=== PATIENT | male | born 1945 | race Caucasian/White ===

== ENCOUNTER 2022-05-22 12:47 | Emergency (ER) | payer BC, SELFPAY ==
[2022-05-22] VITALS (11 sets, daily range): BP systolic 128–159; BP diastolic 78–88; PULSE 54–62; RESP 10–17; TEMP 36.5; O2SAT 98–100
--- NOTE | ~2022-05-22 | XR_ITS ---
EXAMINATION: XR chest 2V DATE: 05/22/2022 13:17 INDICATION: Back and chest pain TECHNIQUE: Frontal and lateral views of the chest are obtained COMPARISON: 12/22/2009 FINDINGS: The lungs are free of acute opacities. No pleural effusion or pneumothorax. The cardiomedia stinal silhouette is normal. There is moderate thoracic spondylosis. IMPRESSION: 1. No acute cardiopulmonary abnormality. Reviewed, dictated and finalized at location A.
--- NOTE | 2022-05-22 12:52 | ECG_ITS ---
Measurements Intervals [place] Rate: 58 P: 57 MI: 160 QRS: 37 QRSD: 90 T: 57 QT: 398 QTc: 393 Interpretive Statements SINUS BRADYCARDIA NO PREVIOUS ECG AVAILABLE FOR COMPARISON Electronically Signed On 05-22-2022 20:00:05 CDT by Lety Akhtar M.D.
[2022-05-22 13:22] LABS: INR 1.1; Partial Thromboplastin Time 27.8 SECONDS (22.3-36.8); Prothrombin Time 13.4 Seconds (11.1-14.7)
[2022-05-22 13:23] LABS: Basophils Percent Auto 0.4 % (0.2-1.2); Eosinophils Absolute Auto 0.1 K/mm3 (0-0.3); Eosinophils Percent Auto 1.2 % (0-4.4); Hematocrit 38.7 % (42.0-52.0); Hemoglobin 13.2 g/dL (14.0-18.0); Immature Granulocyte Absolute 0.02 K/mm3 (0.00-0.031); Immature Granulocyte Percent A 0.3 % (0-0.5); Lymphocytes Absolute Auto 1.23 K/mm3 (0.9-3.2); Lymphocytes Percent Auto 16.8 % (18.3-44.2); Mean Corpuscular HGB Conc 34.1 g/dl (32-36); Mean Corpuscular Hemoglobin 31.2 pg (26-34); Mean Corpuscular Volume 91.5 fl (80-100); Mean Platelet Volume 9.4 fl (7.4-10.4); Monocytes Absolute Auto 0.6 K/mm3 (0.1-0.6); Monocytes Percent Auto 8.7 % (2.6-8.5); Neutrophils Absolute Auto 5.3 K/mm3 (1.3-6.7); Neutrophils Percent Auto 72.6 % (45.5-73.1); Platelet Count Result 217 k/mm3 (150-375); Red Blood Count 4.23 M/mm3 (4.6-6.20); Red Cell Distribution Width 12.5 % (11.5-14.5); White Blood Count 7.3 K/mm3 (4.5-10.0)
[2022-05-22 13:28] LABS: Alanine Aminotransferase 20 U/L (6-50); Albumin Level 4.9 g/dL (3.5-5.1); Alkaline Phosphatase 60 U/L (38-126); Anion Gap 4 mmol/L (8-16); Aspartate Amino Transferase 36 U/L (17-59); Bilirubin,Total 0.4 mg/dL (0.2-1.3); Blood Urea Nitrogen 22 mg/dL (9-20); Carbon Dioxide 26 mmol/L (22-30); Chloride 97 mmol/L (98-107); Estimated CRCL calculation 53 ml/min; Estimated Glomerular Filt Rate > 60; Glucose 106 mg/dL (65-110); Lipase 96 U/L (23-300); Potassium 4.9 mmol/L (3.4-5.0); Sodium 127 mmol/L (137-145)
[2022-05-22 13:39] LABS: Troponin I < 0.012 ng/mL (0.000-0.034)
--- NOTE | 2022-05-22 15:22 | ED.CHESTPAIN ---
HPI - Chest Pain General Chief Complaint: Chest Pain Stated Complaint: left back pain Time Seen by Provider: 05/22/22 15:04 History of Present Illness HPI narrative: Pt noticed some mid back discomfort last week which started to wrap around t the front yesterday and then today he had a brief sharp pain in his anterior chest when he was taking a deep breath. Pt says it lasted a couple of seconds and resolved. Pt has no pain now and denies SOB. Related Data Home Medications Medication Instructions Recorded Confirmed amlodipine 5 mg tablet mg 05/22/22 aspirin 81 mg 05/22/22 clopidogrel 75 mg tablet mg 05/22/22 simvastatin 40 mg tablet mg 05/22/22 valsartan 160 mg tablet mg 05/22/22 Allergies Allergy/AdvReac Type Severity Reaction Status Date / Time No Known Allergies Allergy Mild Verified 05/22/22 13:00 Review of Systems Review of Systems: All systems reviewed & are unremarkable except as noted in HPI and below Exam Const: General: healthy appearing Nutritional Appearance: well nourished Orientation/consciousness: patient oriented x3 Limitations: no limitations Chest: Chest palpation & inspection: tenderness Other: patient tender to palpation intercostal muscles in lower left anterior chest corresponding to intercostal muscles in area of tenderness in back Resp: Effort & Inspection: normal respiratory effort Auscultation: clear to auscultation bilaterally Cardio: Rate: regular rate Rhythm: regular rhythm Skin: General skin exam: normal color Rashes: no rashes Neuro: General: patient oriented x3, moves all extremities and no focal motor deficits Speech: normal speech Extrem: General: normal to inspection and no clubbing, cyanosis or edema Psych: Mental Status: mental status grossly normal Affect: normal affect Attitude: cooperative Course Vital Signs Vital signs: Vital Signs Temperature 97.7 F 05/22/22 12:58 Pulse Rate 62 05/22/22 12:58 Respiratory Rate 16 05/22/22 12:58 Blood Pressure 159/78 H 05/22/22 12:58 Pulse Oximetry 99 05/22/22 12:58 Oxygen Delivery Room Air 05/22/22 12:58 Temperature 97.7 F 05/22/22 12:58 Pulse Rate 58 L 05/22/22 17:05 Respiratory Rate 10 L 05/22/22 17:05 Blood Pressure 142/86 H 05/22/22 16:45 Pulse Oximetry 98 05/22/22 17:05 Oxygen Delivery Room Air 05/22/22 12:58 MDM - Chest Pain Lab Data Result diagrams: 05/22/22 12:56 05/22/22 12:56 Labs: Lab Results 05/22/22 05/22/22 05/22/22 Range/Units 12:56 12:56 12:56 WBC 7.3 (4.5-10.0) K/mm3 RBC 4.23 L (4.6-6.20) M/mm3 Hgb 13.2 L (14.0-18.0) g/dL Hct 38.7 L (42.0-52.0) % MCV 91.5 (80-100) fl MCH 31.2 (26-34) pg MCHC 34.1 (32-36) g/dl RDW 12.5 (11.5-14.5) % Plt Count 217 (150-375) k/mm3 MPV 9.4 (7.4-10.4) fl Immature Gran % (Auto) 0.3 (0-0.5) % Neut % (Auto) 72.6 (45.5-73.1) % Lymph % (Auto) 16.8 L (18.3-44.2) % [place] % (Auto) 8.7 H (2.6-8.5) % Eos % (Auto) 1.2 (0-4.4) % Baso % (Auto) 0.4 (0.2-1.2) % Lymph # (Auto) 1.23 (0.9-3.2) K/mm3 [place] # (Auto) 0.6 (0.1-0.6) K/mm3 Eos # (Auto) 0.1 (0-0.3) K/mm3 Baso # (Auto) 0.0 (0.0-0.1) K/mm3 Abs Immat Gran (auto) 0.02 (0.00-0.031) K/mm3 Absolute Neuts (auto) 5.3 (1.3-6.7) K/mm3 Absolute Nucleated RBC 0.0 (0.0-0.012) K/mm3 Nucleated RBC % 0.0 (0.0-0.2) % PT 13.4 (11.1-14.7) Seconds INR 1.1 APTT 27.8 (22.3-36.8) SECONDS Sodium 127 L (137-145) mmol/L Potassium 4.9 (3.4-5.0) mmol/L Chloride 97 L (98-107) mmol/L Carbon Dioxide 26 (22-30) mmol/L Anion Gap 4 L (8-16) mmol/L BUN 22 H (9-20) mg/dL Creatinine 1.00 (0.7-1.3) mg/dL Estim Creat Clear Calc 53 ml/min Estimated GFR > 60 (59 - ) Glucose 106 (65-110) mg/dL Calcium 9.0 (8.4-10.2) mg/dL Total Bilirubin 0.4 (0.2-1.3) mg/dL AST 36 (17-59) U/L AL
[2022-05-22 16:37] LABS: Troponin I < 0.012 ng/mL (0.000-0.034)
== END 2022-05-22 17:28 | disposition home or self-care (01) ==
PROVIDERS: Emergency Medicine; Emergency Provider Emergency Medicine
DX: R07.89 Other chest pain (principal); Z79.82 Long term (current) use of aspirin; R00.1 Bradycardia, unspecified
CPT/HCPCS: 36415; 71046; 80053; 83690; 84484; 85025; 85610; 85730; 93005; 99284

== ENCOUNTER 2022-06-10 07:04 | Emergency (ER) | payer BC, SELFPAY ==
--- NOTE | ~2022-06-10 | CT_ITS ---
EXAMINATION: CT lumbar spine wo con DATE: 06/10/2022 07:54 INDICATION: Low back pain. TECHNIQUE: Computed tomography (CT) of the lumbar spine was performed without intravenous contrast. A utomated exposure control and iterative reconstruction technique were employed. The dose-length produ ct was 369.91 mGy-cm. COMPARISON: None FINDINGS: There is 8 degrees dextrocurvature of lumbar spine. There are Schmorl's nodes from T11-T12 through L1-L2. There is moderately decreased disc height at L1-L2, mildly decreased disc height at L2 -L3, and moderately decreased disc height at L3-L4. The following disc levels are specifically discus sed: L1-L2: The disc is bulging. There is mild bilateral facet joint osteoarthritis. There is moderate rig ht and mild left neural foraminal stenosis. There is mild central canal stenosis. L2-L3: The disc is bulging. There is severe bilateral facet joint osteoarthritis. There is mild right and moderate left neural foraminal stenosis. There is mild central canal stenosis. L3-L4: The disc is bulging. There is severe right and mild left facet joint osteoarthritis. There is moderate bilateral neural foraminal stenosis. There is mild central canal stenosis. L4-L5: The disc is bulging. There is severe bilateral facet joint osteoarthritis. There is moderate b ilateral neural foraminal stenosis. There is mild central canal stenosis. L5-S1: The disc is bulging. There is severe bilateral facet joint osteoarthritis. There is mild bilat eral neural foraminal stenosis. There is mild central canal stenosis. IMPRESSION: 1. Moderate lumbar spondylosis. Reviewed, dictated and finalized at location A.
[2022-06-10 07:08] VITALS: BP 160/68; PULSE 66; RESP 18; TEMP 36.6; O2SAT 100
[2022-06-10 07:58] VITALS: BP 166/88; PULSE 62; RESP 12; O2SAT 100
[2022-06-10] MEDS: HYDROcodone/acetaminophen (*CRX) 5-325 MG TABLET 1 TAB PO (08:18)
[2022-06-10 08:22] LABS: Appearance Urine Clear (Clear); Bilirubin Urine Negative (Negative); Color Urine Yellow (Yellow); Glucose Urine UA Negative (Negative); Ketones Urine Negative (Negative); Leukocyte Esterase Ur Negative LEU/UL (Negative); Nitrate Urine Negative (Negative); Protein Urine Negative (Negative); Specific Grav Ur 1.015 (1.001-1.035); Urobilinogen Urine 0.2 mg/dL (<2.0)
[2022-06-10 08:50] LABS: Mucus Urine Rare /lpf; RBC Urine 0-2 /hpf (0-2); WBC Urine 0-3 /hpf
[2022-06-10 08:51] LABS: Add Urine Microscopic? YES; Blood Urine Trace-Intact (Negative)
--- NOTE | 2022-06-10 09:15 | ED.BACK ---
HPI - Back Pain/Injury General Chief Complaint: Extremity Problem,Nontraumatic Stated Complaint: low back pain, right leg pain Time Seen by Provider: 06/10/22 07:35 History of Present Illness HPI Narrative: Pt had some discomfort in his low back a few days ago but improved. Pt had been doing a lot of yard work and picking things up and twisting recently. Pt states he has developed sharp shooting intermittent pains that wrap around from back and goe down front of thight and leg over the last day or so. Pt denies weakness or numbness or problems with bladder or bowels. Related Data Home Medications Medication Instructions Recorded Confirmed amlodipine 5 mg tablet mg 05/22/22 aspirin 81 mg 05/22/22 clopidogrel 75 mg tablet mg 05/22/22 simvastatin 40 mg tablet mg 05/22/22 valsartan 160 mg tablet mg 05/22/22 Allergies Allergy/AdvReac Type Severity Reaction Status Date / Time No Known Allergies Allergy Mild Verified 06/10/22 07:42 Review of Systems Review of Systems: All systems reviewed & are unremarkable except as noted in HPI and below Exam Const: General: healthy appearing Nutritional Appearance: well nourished Orientation/consciousness: patient oriented x3 Limitations: no limitations Neck: Neck: normal visual inspection Resp: Effort & Inspection: normal respiratory effort Auscultation: clear to auscultation bilaterally Cardio: Rate: regular rate Rhythm: regular rhythm GI: GI Palp: Yes Soft to palpation Auscultation: normal bowel sounds : General: Yes bladder normal to palpation Back/Spine/Pelvis: Back: no CVA tenderness Skin: General skin exam: normal color Rashes: no rashes Wounds: no wounds Neuro: General: patient oriented x3, moves all extremities, no meningeal signs and no focal motor deficits Cranial nerves: Yes Nystagmus not present Speech: normal speech Gait exam (Neuro): Normal gait present Extrem: General: normal to inspection and no clubbing, cyanosis or edema Psych: Mental Status: mental status grossly normal Affect: normal affect Attitude: cooperative Course Vital Signs Vital signs: Vital Signs Temperature 97.8 F 06/10/22 07:08 Pulse Rate 66 06/10/22 07:08 Respiratory Rate 18 06/10/22 07:08 Blood Pressure 160/68 H 06/10/22 07:08 Pulse Oximetry 100 06/10/22 07:08 Oxygen Delivery Room Air 06/10/22 07:08 Temperature 97.8 F 06/10/22 07:08 Pulse Rate 62 06/10/22 07:58 Respiratory Rate 12 06/10/22 07:58 Blood Pressure 166/88 H 06/10/22 07:58 Pulse Oximetry 100 06/10/22 07:58 Oxygen Delivery Room Air 06/10/22 07:08 MDM - Back Pain/Injury MDM Narrative Medical decision making narrative: ct ls spine shows multilevel disease and bulging but no herniation Differential Diagnosis Differential diagnosis: Likely lumbar radiculopathy, sciatica, strain of lumbar region, pyelonephritis and discitis Lab Data Attestation: I reviewed the patient's lab results. Labs: Lab Results 06/10/22 Range/Units 08:15 Urine Color Yellow (Yellow) Urine Appearance Clear (Clear) Urine pH 6.0 (5.0-9.0) Ur Specific [place] 1.015 (1.001-1.035) Urine Protein Negative (Negative) mg/dL Urine Glucose (UA) Negative (Negative) mg/dL Urine Ketones Negative (Negative) mg/dL Ur Blood (Man) Trace-intact (Negative) Urine Nitrate Negative (Negative) Urine Bilirubin Negative (Negative) Urine Urobilinogen 0.2 (<2.0) mg/dL Leukocyte Esterase Rfl Negative (Negative) JOAQUIN/UL Urine RBC 0-2 (0-2) /hpf Urine WBC 0-3 /hpf Urine Mucus Rare /lpf Discharge Plan Discharge Clinical Impression: Lumbar back pain with radiculopathy affecting right lower extremity Patient Disposition: Home, Self-Care Condition: Stable Instructions: Antibiotic Form, Lumbar Radiculopathy (ED) Prescriptions: New prednisone 10 mg tablets,dose pack See Taper PO DAILY 12 Days Qty: 42 0RF Taper: Prednisone Taper fr
== END 2022-06-10 09:40 | disposition home or self-care (01) ==
PROVIDERS: Emergency Provider Emergency Medicine
DX: M54.16 Radiculopathy, lumbar region (principal); Z79.82 Long term (current) use of aspirin
CPT/HCPCS: 72131; 81001; 99284; A9270

== ENCOUNTER 2023-02-20 09:45 | Outpatient (RCR) | payer BC, SELFPAY | END 2023-02-20 10:36 | disposition home or self-care (01) | LOC: ANHCPREHAB 09:45 | DX: Z95.1 Presence of aortocoronary bypass graft (principal) | CPT/HCPCS: 93798 ==

== ENCOUNTER 2025-01-17 06:14 | Emergency (ER) | payer BC, SELFPAY ==
[2025-01-17] VITALS (23 sets, daily range): BP systolic 105–156; BP diastolic 54–104; PULSE 59–75; RESP 9–19; O2SAT 94–99
--- NOTE | ~2025-01-17 | CT_ITS ---
CT of the Abdomen and Pelvis: Indication: Abdominal pain Technique: 2.5 mm axial scans were obtained through the abdomen and pelvis following intravenous adm inistration of 100 cc of Omnipaque 350. Dose reduction technique was used on this scan by utilizing a utomated exposure control and iterative reconstruction technique. The dose-length product (DLP) was 2 96.78 mGy-cm. Findings: Scans through the lung bases demonstrate 7 mm pleural-based nodule the left lower lobe per ipherally (axial image 20). The liver, spleen, pancreas, gallbladder, adrenals and kidneys are within normal limits. There are at herosclerotic calcifications of the aorta. No lymphadenopathy. There is wall thickening and pericolonic inflammatory change at the proximal to mid descending colon, compatible with infectious/inflammatory colitis. No bowel obstruction. No abscess or free air. Images through the pelvis were performed. Urinary bladder unremarkable. Prostate gland is significant ly enlarged. No ascites. Impression: Findings compatible with infectious/inflammatory colitis at the proximal to mid descending colon. No abscess, free air, or obstruction. Neoplasm felt to be less likely given the overall appearance. Tay elate clinically. Consider colonoscopy as indicated. 7 mm pleural-based nodule left lower lobe. According to Fleischner criteria, for a low-risk patient, recommend follow-up CT scan in 6-12 months, then consider additional 18-[address] For a high-risk patient, follow-up CT scans at both 6-12 months and 18-24 months are recommended.. Reviewed, dictated and finalized at [facility]. Impression: Findings compatible with infectious/inflammatory colitis at the proximal to mid descending colon. No abscess, free air, or obstruction. Neoplasm felt to be le ss likely given the overall appearance. Correlate clinically. Consider colonosc opy as indicated. 7 mm pleural-based nodule left lower lobe. According to Fleischner criteria, fo r a low-risk patient, recommend follow-up CT scan in 6-12 months, then consider additional 18-[address] For a high-risk patient, follow-up CT scans at both 6-12 months and 18-24 months are recommended..
--- NOTE | ~2025-01-17 | XR_ITS ---
XR chest 2V Ordering provider: Kasi Cramer MD History: 79 years Male with . MID STERNAL CP . Comparison: May 22, 2022 FINDINGS: MEDIASTINUM: The cardiac silhouette is not enlarged. Postoperative changes in the mediastinum. LUNGS: No infiltrates, effusions or pneumothorax. OTHER: No free air under the diaphragm. IMPRESSION: No acute cardiopulmonary pathology. Reviewed, dictated and finalized at location A.
--- OUTSIDE RECORDS SUMMARY | 2025-01-17 06:16 | XMS_ITS | Encounter Summary ---
Author Organization [facility] Address [address] [place] [address] Care Team Providers Care Irrigating Pump Operator Name Role Phone Mimi Fernandez MD Primary Care Provider [phone] Encounter Details Date Type Department Care Team (Late st Contact Info) Description 04/13/2001 Outpatient Historical [facility] Primary Care - [facility] [address] [place] [address] [address] [place] [address] Jaya Roper MD NO ADDRESS ON FILE Social History Tobacco Use Types Packs/Day Years Used Date Smoking Tobacco: Never Assessed Sex and Gender Information Value Date Recorded Sex Assigned at Not on file 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 Gender Identity Not on file Sexual Orientation Not on file documented as of this encounter Plan of Treatment Upcoming Encounters Date Type Department Care Team (Late st Contact Info) Description 03/30/2025 9:00 AM CDT Office Visit [facility] Heart and Vascular - [facility] [address] [facility] [address] [place] [address] Valdez Frey MD [address] [facility] [address] [place] [address] 08/30/2025 11:30 AM MINILAB OPERATOR Office Visit [facility] Internal Medicine - [place] [address] [facility] [address] [place] [address] [place] [address] [facility] [address] [place] [address] documented as of this encounter Visit Diagnoses Not on filedocumented in this encounter Care Teams Irrigating Pump Operator Relationship Specialty [place] [address] [facility] [address] Gilberto Ayala [address] [address] PCP - General Internal Medicine 08/25/24 documented as of this encounter
--- OUTSIDE RECORDS SUMMARY | 2025-01-17 06:16 | XMS_ITS | Encounter Summary ---
Author Organization [facility] Address [address] [place] [address] Care Team Providers Care Toy Mechanic Name Role Phone Mimi Fernandez MD Primary Care Provider [phone] Encounter Details Date Type Department Care Team (Late st Contact Info) Description 06/05/2005 Outpatient Historical [facility] Support [facility] ([facility]) [address] 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 Gender Identity Not on file Sexual Orientation Not on file documented as of this encounter Plan of Treatment Upcoming Encounters Date Type Department Care Team (Late Contact Info) Description 03/30/2025 9:00 AM CDT Office Visit [facility] Heart and Vascular - [facility] [address] [facility] [address] [place] [address] Valdez Frey MD [address] [facility] [address] [place] [address] 08/30/2025 11:30 AM RAT CULTURIST Office Visit [facility] Internal Medicine - [place] [address] [facility] [address] [place] [address] [place] [address] Gilberto Ayala [facility] [address] [place] [address] documented as of this encounter Visit Diagnoses Not on filedocumented in this encounter Care Teams Toy Mechanic Relationship Specialty [place] [address] Gilberto Ayala [facility] [address] [place] [address] PCP - General Internal Medicine 08/25/24 documented as of this encounter
--- OUTSIDE RECORDS SUMMARY | 2025-01-17 06:16 | XMS_ITS | Encounter Summary ---
Author Organization [facility] Address [address] [place] [address] Care Team Providers Care Package Worker Name Role Phone Mimi Fernandez MD Primary Care Provider [phone] Encounter Details Date Type Department Care Team (Late st Contact Info) Description 02/10/2001 Outpatient Historical [facility] Primary Care - [facility] [address] [place] [address] [address] [place] [address] Jaya Roper MD NO ADDRESS ON FILE Social History Tobacco Use Types Packs/Day Years Used Date Smoking Tobacco: Never Assessed Sex and Gender Information Value Date Recorded Sex Assigned at Not on file 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 AIR 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 Gender Identity Not on file Sexual Orientation Not on file documented as of this encounter Plan of Treatment Upcoming Encounters Date Type Department Care Team (Late st Contact Info) Description 03/30/2025 9:00 AM CDT Office Visit [facility] Heart and Vascular - [facility] [address] [facility] [address] [place] [address] Valdez Frey MD [address] [facility] [address] [place] [address] 08/30/2025 11:30 AM AIR TOOL OPERATOR Office Visit [facility] Internal Medicine - [place] [address] [facility] [address] [place] [address] [place] [address] [facility] [address] [place] [address] documented as of this encounter Visit Diagnoses Not on filedocumented in this encounter Care Teams Package Worker Relationship Specialty [place] [address] [facility] [address] Gilberto Ayala [address] [address] PCP - General Internal Medicine 08/25/24 documented as of this encounter
--- OUTSIDE RECORDS SUMMARY | 2025-01-17 06:16 | XMS_ITS | Encounter Summary ---
Author Organization [facility] Address [address] [place] [address] Care Team Providers Care Typesetters Printer Name Role Phone Mimi Fernandez MD Primary Care Provider [phone] Encounter Details Date Type Department Care Team (Latest Contact Info) Description 06/23/2006 Outpatient Historical [facility] Primary Care - [facility] [address] [place] [address] [address] [place] [address] Jaya Roper MD NO ADDRESS ON FILE Other and Unspecified Hyperlipidemia (Primary Dx) Social History Tobacco Use Types Packs/Day Years Used Date Smoking Tobacco: Never Assessed Sex and Gender Information Value Date Recorded Sex Assigned at Not on file 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 VOICE WRITING REPORTER Gender Identity Not on file Sexual Orientation Not on file documented as of this encounter Plan of Treatment Upcoming Encounters Date Type Department Care Team (Late st Contact Info) Description 03/30/2025 9:00 AM CDT Office Visit [facility] Heart and Vascular - [facility] [address] [facility] [address] [place] [address] Valdez Frey MD [address] [facility] [address] [place] [address] 08/30/2025 11:30 AM VOICE WRITING REPORTER Office Visit [facility] Internal Medicine - [place] [address] [facility] [address] [place] [address] [place] [address] [facility] Gilberto [facility] [address] [place] [address] documented as of this encounter Procedures Procedure Name Priority Date/Time Associated Diagnosis Comments TSH REFLEXIVE Routine 06/23/2006 3:26 PM CDT CBC WITH DIFFERENTIAL Routine 06/23/2006 3:26 PM CDT CBC WITH DIFFERENTIAL Routine 06/23/2006 3:26 PM CDT PSA Routine 06/23/2006 3:26 PM CDT LIPID PANEL Routine 06/23/2006 3:26 PM CDT documented in this encounter Results * CBC WITH DIFFERENTIAL (06/23/2006 3:26 PM CDT) NEUTROPHILS 66 45 - 70 % INTERFAC E SYSTEM LYMPHOCYTES 25 16 - 45 % INTERFAC E SYSTEM MONOCYTES 7 3 - 13 % INTERFACE SYSTEM EOSINOPHILS 1 0 - 7 % INTERFAC E SYSTEM BASOPHILS 0 0 - 2 % INTERFACE SYSTEM NEUTROPHIL ABSOLUTE 3.69 1.90 - 7.00 K/uL INTERFACE SYSTEM LYMPHOCYTE ABSOLUTE 1.38 0.70 - 4.50 K/uL INTERFACE SYSTEM MONOCYTE ABSOLUTE 0.40 0.10 - 1.30 K/uL INTERFACE SYSTEM EOSINOPHIL ABSOLUTE 0.08 0.00 - 0.70 K/uL INTERFACE SYSTEM BASOPHILS ABSOLUTE 0.02 0.00 - 0.20 K/uL INTERFACE SYSTEM 06/23/2006 3:26 PM CDT us Jaya Roper MD HEMATOLOGY ORDERABLES Final R esult INTERFACE SYSTEM Refer to clinic/hospital department * CBC WITH DIFFERENTIAL (06/23/2006 3:26 PM CDT) WBC 5.6 4.0 - 9.8 K/uL INTERFACE SYSTEM RBC 4.95 4.50 - 5.40 M/uL INTERFACE SYSTEM HEMOGLOBIN 14.8 13.6 - 16.5 g/dL INTERFACE SYSTEM HEMATOCRIT 43.6 40.0 - 48.0 % INTERFACE SYSTEM MCV 88.1 82.0 - 99.0 fL INTERFACE SYSTEM MCH 29.9 27.2 - 32.6 pg INTERFACE SYSTEM MCHC 33.9 31.5 - 35.5 % INTERFACE SYSTEM RDW 12.9 11.5 - 14.5 % INTERFACE SYSTEM RDW-STDEV 41.4 37.1 - 48.7 fL INTERFACE SYSTEM PLATELETS 230 140 - 350 K/uL INTERFACE SYSTEM MPV 10.4 9.3 - 12.4 fL INTERFACE SYSTEM 06/23/2006 3:26 PM CDT us Jaya Roper MD HEMATOLOGY ORDERABLES Final R esult Performing Organization Address [facility] de Phone Number INTERFACE SYSTEM Refer to clinic/hospital department * TSH REFLEXIVE (06/23/2006 3:26 PM CDT) TSH 3.50 0.27 - 4.20 uU/mL INTERFACE SYSTEM 06/23/2006 3:26 PM CDT us Jaya Roper MD CHEMISTRY ORDERABLES Final Re sult Performing Organization Address [facility] Phone Number INTERFACE SYSTEM Refer to clinic/hospital department * (ABNORMAL) LIPID PANEL (06/23/2006 3:26 PM CDT) CHOLESTEROL 238(H) 100 - 199 mg/dL INTERFACE SYSTEM TRIGLYCERIDE 245(H) 10 - 149 mg/dL INTERFACE SYSTEM HDL 47 40 - 59 mg/dL INTERFACE SYSTEM CHOL/HDL RATIO 5.1(H) 2.0 - 5.0 INTER FACE SYSTEM LDL CALCULATED 142(H) <=99 mg/dL INTERFACE SYSTEM LIPID PANEL COMMENT See Below INTERFACE SYSTEM Comment: The adult ATP and pediatric NCEP classifications for lipids are available on the [facility] Intranet at: [email or web address] Select: Lab Policies and Procedures Select: Reference Ranges - Lipids 06/23/2006 3:26 PM CDT us Jaya Roper MD CHEMISTRY ORDERABLES Final Re sult Performing Organization Address [facility] Co de Phone Number INTERFACE SYSTEM Refer to clinic/hospital department * PSA (06/23/2006 3:26 PM CDT) PSA 1.1 0.0 - 4.0 ng/mL INTERFACE SYSTEM Comment:Performed on [employer] E170 System 06/23/2006 3:26 PM CDT us Jaya Roper MD CHEMISTRY ORDERABLES Final Re sult INTERFACE SYSTEM Refer to clinic/hospital department documented in this encounter Visit Diagnoses Diagnosis Other and unspecified hyperlipidemia- Primary documented in this encounter Care Teams Typesetters Printer Relationship Specialty [place] [address] [facility] [address] [place] [address] [address] PCP - General Internal Medicine 08/25/24 documented as of this encounter
--- OUTSIDE RECORDS SUMMARY | 2025-01-17 06:16 | XMS_ITS | Encounter Summary ---
Author Organization [facility] Address 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 SCIENCE PROFESSOR Gender Identity Not on file Sexual Orientation Not on file documented as of this encounter Plan of Treatment Upcoming Encounters Date Type Department Care Team (Late st Contact Info) Description 03/30/2025 9:00 AM CDT Office Visit [facility] Heart and Vascular - [facility] [address] [facility] [address] [place] [address] Valdez Frey MD [address] [facility] [address] [place] [address] 08/30/2025 11:30 AM COMPUTER SCIENCE PROFESSOR Office Visit [facility] [place] Internal Medicine - [place] [address] [facility] [address] [place] [address] [place] [address] [facility] [address] [place] [address] documented as of this encounter Visit Diagnoses Diagnosis Dizziness and giddiness- Primary documented in this encounter Care Teams National Dedicated Truck Driver Relationship Specialty [place] [address] [facility] [address] [place] [address] [address] PCP - General Internal Medicine 08/25/24 documented as of this encounter
--- OUTSIDE RECORDS SUMMARY | 2025-01-17 06:16 | XMS_ITS | Encounter Summary ---
Author Organization [facility] Address 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 Gender Identity Not on file Sexual Orientation Not on file documented as of this encounter Plan of Treatment Upcoming Encounters Date Type Department Care Team (Late st Contact Info) Description 03/30/2025 9:00 AM CDT Office Visit [facility] Heart and Vascular - [facility] [address] [place] [address] [address] [place] [address] Valdez Frey MD [address] [facility] [address] [place] [address] 08/30/2025 11:30 AM ORACLE EBS CONSULTANT Office Visit [facility] Internal Medicine - [place] [address] [facility] [address] [place] [address] [place] [address] [address] [facility] [address] [place] [address] documented as of this encounter Procedures Procedure Name Priority Date/Time Associated Diagnosis Comments NM MYOCARDIAL PERFUSION EF Routine 06/08/2008 10:55 AM CDT documented in this encounter Results * NM MYOCARDIAL PERFUSION EF (06/08/2008 10:55 AM CDT) 06/08/2008 10:5 5 AM CDT Narrative INTERFACE SYSTEM - 06/08/2008 1:46 PM CDT [facility] [address] [place] [place], [place] [address] Admit Date: 06/08/2008 YELENA LIU Sex: M Admit Prov: IGOR GUERRERO Date: 1945 Primary Care Prov: KATHY CHAN CMRN: [id number] Room: [facility] SSN: [id number] IMAGING SERVICES Ordering Prov: N/A Accession Number: [id number] Interpretation Date of Procedure: 06/08/2008 Procedure Type: 1 Day Exercise Stress Myocardial Perfusion Study Clinical Indication: 62-year-old gentleman with history of coronary disease who is referred for ischemic evaluation. Medications: Plavix, Zocor, metoprolol, niacin, aspirin, and fish oil Exercise Stress Procedure: The patient exercised for 10 minutes on a Jules protocol, achieving an estimated workload of 13 METS. The resting heart rate was 63 bpm, and increased to 153 bpm at peak exercise, which was 96 % of the predicted maximum heart rate. The resting blood pressure was 167 / 89 and 214 / 96 at peak exercise, demonstrating a normal response to exercise. Exercise was terminated due to achievement of target heart rate. ECG: Resting ECG demonstrated normal sinus rhythm, voltage of criteria for LVH with normal ST segments and T waves. With exercise there was up to [address] segment depression in the inferolateral leads which is suggestive of but nondiagnostic for ischemia. Nuclear Imaging Protocol: Myocardial perfusion imaging was performed at rest approximately 60 minutes following the intravenous injection of 8.8 mCi TC99m tetrofosmin. At peak exercise, the patient was injected intravenously with 31.6 mCi TC99m tetrofosmin and exercise was continued for 2 minutes. Gated post-stress tomographic imaging was performed approximately 30 minutes later in same manner. SPECT reconstruction was performed in the short, vertical long and horizontal long axis views in both rest and stress image sets. Findings: There is normal perfusion to all myocardial segments during both stress and rest imaging. There is no ischemia. Gated SPECT examination reveals normal left ventricular cavity size. There is normal left ventricular wall motion. LVEF 72 %. Impression: 1. Normal myocardial perfusion study. No ischemia. 2. Normal gated SPECT examination. Normal left ventricular wall motion. LVEF 72 %. 3. Nondiagnostic stress EKG with nonspecific, upsloping ST segment depression with exercise. LVH also decreases the specificity of the exam. 4. Good exercise capacity. Systemic hypertension at rest with normal hemodynamic response. 5. The technical quality of the study is good. 6. No prior study available for comparison. Recommendations: Clinical correlation . Dictated by: IGOR HORVATH 06/08/2008 13:37 Electronically signed by: IGOR HORVATH 06/08/2008 13:45 Procedure Note Igor Horvath MD - 06/08/[address] [address] Admit Date: 06/08/2008 YELENA LIU Sex: M Admit Prov: IGOR GUERRERO Date: 1945 Primary Care Prov: KATHY CHAN CMRN: [id number] Room: [facility] SSN: [id number] IMAGING SERVICES Ordering Prov: N/A Interpretation Date of Procedure: 06/08/2008 Procedure Type: 1 Day Exercise Stress Myocardial Perfusion Study Clinical Indication: 62-year-old gentleman with history of coronarydisease who is referred for ischemic evaluation. Medications: Plavix, Zocor, metoprolol, niacin, aspirin, and fishoil Exercise Stress Procedure: The patient exercised for 10 minutes on a Jules protocol, achievingan estimated workload of 13 METS. The resting heart rate was 63 bpm,and increased to 153 bpm at peak exercise, which was 96 % of thepredicted maximum heart rate. The resting blood pressure was 167 / 89 and 214 /96 at peak exercise, demonstrating a normal response to exercise. Exercisewas terminated due to achievement of target heart rate. ECG: Resting ECG demonstrated normal sinus rhythm, voltage of criteria forLVH with normal ST segments and T waves. With exercise there was up to 1mm of upsloping ST segment depression in the inferolateral leads which is suggestive of but nondiagnostic for ischemia. Nuclear Imaging Protocol: Myocardial perfusion imaging was performed at rest approximately 60minutes following the intravenous injection of 8.8 mCi TC99m tetrofosmin. Atpeak exercise, the patient was injected intravenously with 31.6 [id number] tetrofosmin and exercise was continued for 2 minutes. Gatedpost-stress tomographic imaging was performed approximately 30 minutes later insame manner. SPECT reconstruction was performed in the short, verticallong and horizontal long axis views in both rest and stress image sets. Findings: There is normal perfusion to all myocardial segments during bothstress and rest imaging. There is no ischemia. Gated SPECT examination revealsnormal left ventricular cavity size. There is normal left ventricular wallmotion. LVEF 72 %. Impression: 1. Normal myocardial perfusion study. No ischemia. 2. Normal gated SPECT examination. Normal left ventricular wallmotion. LVEF 72 %. 3. Nondiagnostic stress EKG with nonspecific, upsloping ST segment depression with exercise. LVH also decreases the specificity of theexam. 4. Good exercise capacity. Systemic hypertension at rest withnormal hemodynamic response. 5. The technical quality of the study is good. 6. No prior study available for comparison. Recommendations: Clinical correlation . Dictated by: IGOR HORVATH 06/08/2008 13:37 Electronically signed by: IGOR HORVATH 06/08/2008 13:45 Igor Guerrero MD [facility] ORDER[facility] Final Result Performing Organization Address City/State/[facility] Co de Phone Number INTERFACE SYSTEM Refer to clinic/hospital department documented in this encounter Visit Diagnoses Diagnosis Coronary atherosclerosis of [place] coronary artery documented in this encounter Care Teams Night Time Nanny Relationship Specialty [place] [address] [address] [facility] [address] [address] PCP - General Internal Medicine 08/25/24 documented as of this encounter
--- OUTSIDE RECORDS SUMMARY | 2025-01-17 06:16 | XMS_ITS | Encounter Summary ---
Author Organization [facility] Address [address] [place] [address] Care Team Providers Care Business Services Assistant Name Role Phone Mimi Fernandez MD Primary Care Provider [phone] Encounter Details Date Type Department Care Team (Latest Contact Info) Description 11/25/2001 Outpatient Historical [facility] CARDI[facility]ULMON[facility] Jaya Roper MD NO ADDRESS ON FILE SKIN SENSATION DISTURB (Primary Dx) Social History Tobacco Use Types Packs/Day Years Used Date Smoking Tobacco: Never Assessed Sex and Gender Information Value Date Recorded Sex Assigned at Not on file 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 CLERICAL SUPPORT Gender Identity Not on file Sexual Orientation Not on file documented as of this encounter Plan of Treatment Upcoming Encounters Date Type Department Care Team (Late st Contact Info) Description 03/30/2025 9:00 AM CDT Office Visit [facility] Heart and Vascular - [facility] [address] [place] [address] [address] [place] [address] Valdez Frey MD [address] [facility] 2014 [place] [address] 08/30/2025 11:30 AM CLERICAL SUPPORT Office Visit [facility] Internal Medicine - [place] [address] [facility] [address] [place] [address] [place] [address] [facility] Gilberto [facility] [place] [address] documented as of this encounter Visit Diagnoses Diagnosis Disturbance of skin sensation- Primary documented in this encounter Care Teams Business Services Assistant Relationship Specialty [place] [address] [facility] [address] Macias [address] [address] PCP - General Internal Medicine 08/25/24 documented as of this encounter
--- OUTSIDE RECORDS SUMMARY | 2025-01-17 06:16 | XMS_ITS | Encounter Summary ---
Author Organization [facility] Address [address] [place] [address] Care Team Providers Care Biology Manager Name Role Phone Mimi Fernandez MD Primary Care Provider [phone] Encounter Details Date Type Department Care Team (Late st Contact Info) Description 05/06/2005 Outpatient Historical [facility] Primary Care - [facility] [address] [place] [address] [address] [place] [address] Jaya Roper MD NO ADDRESS ON FILE Social History Tobacco Use Types Packs/Day Years Used Date Smoking Tobacco: Never Assessed Sex and Gender Information Value Date Recorded Sex Assigned at Not on file 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 MANAGER Gender Identity Not on file Sexual Orientation Not on file documented as of this encounter Plan of Treatment Upcoming Encounters Date Type Department Care Team (Late st Contact Info) Description 03/30/2025 9:00 AM CDT Office Visit [facility] Heart and Vascular - [facility] [address] [facility] [address] [place] [address] Valdez Frey MD [address] [facility] [address] [place] [address] 08/30/2025 11:30 AM INFORMATION SYSTEMS MANAGER Office Visit [facility] Internal Medicine - [place] [address] [facility] [address] [place] [address] [place] [address] [address] [facility] [address] [place] [address] documented as of this encounter Visit Diagnoses Not on filedocumented in this encounter Care Teams Biology Manager Relationship Specialty [place] [address] [facility] [address] Gilberto Ayala [address] [address] PCP - General Internal Medicine 08/25/24 documented as of this encounter
--- OUTSIDE RECORDS SUMMARY | 2025-01-17 06:16 | XMS_ITS | Encounter Summary ---
Author Organization [facility] Address [address] [place] [address] Care Team Providers Care Churn Operator Name Role Phone Mimi Fernandez MD Primary Care Provider [phone] Encounter Details Date Type Department Care Team (Latest Contact Info) Description 09/26/2008 Outpatient Historical [facility], [address] Jaya Roper MD NO ADDRESS ON FILE Family History of Osteoporosis Social History Tobacco Use Types Packs/Day Years Used Date Smoking Tobacco: Never Alcohol Use Standard Drinks/Week Comments Yes 0 (1 standard drink = 0.6 oz pur e alcohol) Sex and Gender Information Value Date Recorded Sex Assigned at Not on file 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 [address] [place] [address] [place] [address] [facility] Gilberto [facility] [place] [address] documented as of this encounter Visit Diagnoses Diagnosis Family history of osteoporosis documented in this encounter Care Teams Churn Operator Relationship Specialty [place] [address] [facility] [address] Gilberto Ayala [address] [address] PCP - General Internal Medicine 08/25/24 documented as of this encounter
--- OUTSIDE RECORDS SUMMARY | 2025-01-17 06:16 | XMS_ITS | Encounter Summary ---
Author Organization [facility] Address 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 TOBACCO USE Patient does not currently use tobacco. MEDICATIONS: Patient is taking no medications at present. CHIEF COMPLAINT Seen for a preventive examination. HISTORY: HISTORY: He returns for physical examination. He also has some concerns that we discussed today. The cough he was seen for last spring has lingered. He feels a small amount of drainage in his throat with it. 272.4-HYPERLIPIDEMIA He has tolerated a relatively low fat diet. He is physically active, though has not shown any change in his weight. 786.2-COUGH The patient denies other pulmonary symptoms. The patient's chronic cough has improved.not as dry ROS: GENERAL: . occasional sweating of head CARDIAC: No chest pain, palpitations, orthopnea, dyspnea on exertion, or paroxysmal nocturnal dyspnea. RESPIRATORY: No dyspnea, cough, hemoptysis or wheezing. : . occasional positional urgency. No nocturia GI: No abdominal pain, nausea, vomiting, diarrhea, constipation, melena, or hematochezia. NEUROLOGIC: . momentary occipital pain several times a year SOCIAL HISTORY: TOBACCO USE: Has no significant smoking history. EXERCISES: The patient exercises. DIET: Follows no specific diet. PHYSICAL EXAMINATION: CONSTITUTIONAL: GENERAL APPEARANCE: Healthy appearing patient in no distress. NECK/THYROID: Trachea midline. No thyroid enlargement, tenderness, or mass. No supraclavicular or cervical adenopathy. RESPIRATORY: Clear to auscultation and percussion. Normal respiratory effort. CARDIOVASCULAR: CARDIAC: Regular rhythm. No murmurs, rubs, or gallops. ARTERIAL: No aortic bruits. GASTROINTESTINAL: ABDOMEN: Soft, non-tender, without masses. Bowel sounds active. LIVER/SPLEEN/KIDNEY: No hepatosplenomegaly, tenderness or nodularity. Kidneys not palpable. RECTAL: Rectal exam reveals no masses or hemorrhoids, sphincter tone is normal. GENITOURINARY: PROSTATE: Symmetrical and smooth with no nodularity or tenderness. MUSCULOSKELETAL EXAM: GAIT/STATION: Normal gait. DIGITS/NAILS: EXTREMITIES: BILATERAL LOWER EXTREMITIES: No misalignment or tenderness. Full range of motion. Normal stability,strength and tone. ASSESSMENT/PLAN: 272.4-HYPERLIPIDEMIA Recheck blood work today. LAB ORDERS: Order number: [id number] Test Ordered: LIPID PANEL 1078 Order number: [id number] Test Ordered: GLUCOSE LEVEL 1111 V70.0-ROUTINE GENERAL MEDICAL EXAMINATION Overall status is good. He has some minor maladies, none of which represent any significant issues. V76.44-SCREEN FOR CA OF PROSTATE LAB ORDERS: Order number: [id number] Test Ordered: PSA, TOTAL 1002 V17.81-FAMILY HISTORY OSTEOPOROSIS His father had osteoporosis, but he had been on steroids for some time. V17.2-FAMILY HISTORY NEUROLOGICAL DISEASES 705.9-DISORDERS OF SWEAT GLANDS He has some abnormal sweating, will check a thyroid function in light of his hyperlipidemia. LAB ORDERS: Order number: [id number] Test Ordered: TSH (REFLEX FREE T4/FREE T3) 1727 HEALTH MAINTENANCE: LAST PROSTATE EXAM: 06/27. LAST DATE PSA DONE: 06/27. DISCUSSED SMOKING: yes. LAST TD: na LAST TD: na SEXUAL ACTIVITY DISCUSSED: yes. SUBSTANCE ABUSE DISCUSSED: yes. INJURY PREVENTION DISCUSSED: yes. DIET AND EXERCISE DISCUSSED: yes. ADVANCED DIRECTIVES DISCUSSED: yes. LAST DATE COLONOSCOPY: 04?. LAST DATE FLEX SIG: none. LAST DATE FOBT: none. LAST BONE DENSITY DATE: none. DIABETIC EYE EXAM: nondiabetic. DIABETIC EYE EXAM PROVIDER: nondiabetic. DIABETIC FOOT EXAM: nondiabetic LAST FLU VACCINE:none LAST PNEUMOCOCCAL:none Electronically Signed by: Jaya Roper MD on Wednesday, July 04, 2007 documented in this encounter Plan of Treatment Upcoming Encounters Date Type Department Care Team (Late st Contact Info) Description 03/30/2025 9:00 AM CDT Office Visit [facility] Heart and Vascular - [facility] [address] [facility] 160 [place] [address] Valdez Frey MD [address] [facility] 2014 [place] [address] 08/30/2025 11:30 AM JAVA CORE DEVELOPER Office Visit [facility] Internal Medicine - [place] [address] [facility] [address] [place] [address] [place] [address] [facility] [address] Macias [facility] [address] [place] [address] documented as of this encounter Visit Diagnoses Not on filedocumented in this encounter Care Teams Executive Team Leader Relationship Specialty [place] [address] [facility] [address] Macias [address] [address] PCP - General Internal Medicine 08/25/24 documented as of this encounter
--- OUTSIDE RECORDS SUMMARY | 2025-01-17 06:16 | XMS_ITS | Encounter Summary ---
Author Organization [facility] Address [address] [place] [address] Care Team Providers Care Director Of Financial Planning Name Role Phone Mimi Fernandez MD Primary Care Provider [phone] Encounter Details Date Type Department Care Team (Late st Contact Info) Description 05/06/2005 Outpatient Historical [facility] Primary Care - [facility] [address] [place] [address] [address] [place] [address] Jaya Roper MD NO ADDRESS ON FILE Social History Tobacco Use Types Packs/Day Years Used Date Smoking Tobacco: Never Assessed Sex and Gender Information Value Date Recorded Sex Assigned at Not on file 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 Gender Identity Not on file Sexual Orientation Not on file documented as of this encounter Plan of Treatment Upcoming Encounters Date Type Department Care Team (Late st Contact Info) Description 03/30/2025 9:00 AM CDT Office Visit [facility] Heart and Vascular - [facility] [address] [facility] [address] [place] [address] Valdez Frey MD [address] [facility] [address] [place] [address] 08/30/2025 11:30 AM WASHER MACHINE Office Visit [facility] Internal Medicine - [place] [address] [facility] [address] [place] [address] [place] [address] [facility] [address] [place] [address] documented as of this encounter Visit Diagnoses Not on filedocumented in this encounter Care Teams Director Of Financial Planning Relationship Specialty [place] [address] [facility] [address] Gilberto Ayala [address] [address] PCP - General Internal Medicine 08/25/24 documented as of this encounter
--- OUTSIDE RECORDS SUMMARY | 2025-01-17 06:16 | XMS_ITS | Encounter Summary ---
Author Organization [facility] Address [address] [place] [address] Care Team Providers Care Kiln Door Repairer Name Role Phone Mimi Fernandez MD Primary Care Provider [phone] Encounter Details Date Type Department Care Team (Late st Contact Info) Description 06/30/2007 Outpatient Historical [facility] Primary Care - [facility] [address] [place] [address] [address] [place] [address] Jaya Roper MD NO ADDRESS ON FILE Social History Tobacco Use Types Packs/Day Years Used Date Smoking Tobacco: Never Assessed Sex and Gender Information Value Date Recorded Sex Assigned at Not on file 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 OPERATOR Gender Identity Not on file Sexual Orientation Not on file documented as of this encounter Plan of Treatment Upcoming Encounters Date Type Department Care Team (Late st Contact Info) Description 03/30/2025 9:00 AM CDT Office Visit [facility] Heart and Vascular - [facility] [address] [facility] [address] [place] [address] Valdez Frey MD [address] [facility] [address] [place] [address] 08/30/2025 11:30 AM FILLER OPERATOR Office Visit [facility] Internal Medicine - [place] [address] [facility] [address] [place] [address] [place] [address] [facility] [address] [place] [address] documented as of this encounter Visit Diagnoses Not on filedocumented in this encounter Care Teams Kiln Door Repairer Relationship Specialty [place] [address] [facility] [address] Gilberto Ayala [address] [address] PCP - General Internal Medicine 08/25/24 documented as of this encounter
--- OUTSIDE RECORDS SUMMARY | 2025-01-17 06:16 | XMS_ITS | Encounter Summary ---
Author Organization [facility] Address [address] [place] [address] Care Team Providers Care Container Coordinator Name Role Phone Mimi Fernandez MD Primary Care Provider [phone] Encounter Details Date Type Department Care Team (Late st Contact Info) Description 11/18/[address] [facility] - [facility] [address] [place] [address] [address] [place] [address] Jaya Roper MD NO ADDRESS ON FILE Social History Tobacco Use Types Packs/Day Years Used Date Smoking Tobacco: Never Assessed Sex and Gender Information Value Date Recorded Sex Assigned at Not on file 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 DRY ROLLER Gender Identity Not on file Sexual Orientation Not on file documented as of this encounter Plan of Treatment Upcoming Encounters Date Type Department Care Team (Late st Contact Info) Description 03/30/2025 9:00 AM CDT Office Visit [facility] Heart and Vascular - [facility] [address] [facility] [address] [place] [address] Valdez Frey MD [address] [facility] [address] [place] [address] 08/30/2025 11:30 AM DRY ROLLER Office Visit [facility] Internal Medicine - [place] [address] [facility] [address] [place] [address] [place] [address] [facility] [address] [place] [address] documented as of this encounter Visit Diagnoses Not on filedocumented in this encounter Care Teams Container Coordinator Relationship Specialty [place] [address] [facility] [address] Gilberto Ayala [address] [address] PCP - General Internal Medicine 08/25/24 documented as of this encounter
--- OUTSIDE RECORDS SUMMARY | 2025-01-17 06:16 | XMS_ITS | Encounter Summary ---
Author Organization [facility] Address [address] [place] [address] Care Team Providers Care Fancy Sewer Name Role Phone Mimi Fernandez MD Primary Care Provider [phone] Encounter Details Date Type Department Care Team (Late st Contact Info) Description 01/19/2007 Outpatient Historical [facility] Primary Care - [facility] [address] [place] [address] [address] [place] [address] Jaya Roper MD NO ADDRESS ON FILE Social History Tobacco Use Types Packs/Day Years Used Date Smoking Tobacco: Never Assessed Sex and Gender Information Value Date Recorded Sex Assigned at Not on file 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 APPOINTMENT SCHEDULER Gender Identity Not on file Sexual Orientation Not on file documented as of this encounter Plan of Treatment Upcoming Encounters Date Type Department Care Team (Late st Contact Info) Description 03/30/2025 9:00 AM CDT Office Visit [facility] Heart and Vascular - [facility] [address] [facility] [address] [place] [address] Valdez Frey MD [address] [facility] [address] [place] [address] 08/30/2025 11:30 AM APPOINTMENT SCHEDULER Office Visit [facility] Internal Medicine - [place] [address] [facility] [address] [place] [address] [place] [address] [facility] [address] [place] [address] documented as of this encounter Visit Diagnoses Not on filedocumented in this encounter Care Teams Fancy Sewer Relationship Specialty [place] [address] [facility] [address] Gilberto Ayala [address] [address] PCP - General Internal Medicine 08/25/24 documented as of this encounter
--- OUTSIDE RECORDS SUMMARY | 2025-01-17 06:16 | XMS_ITS | Encounter Summary ---
Author Organization [facility] Address 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 [address] [facility] 160 [place] [address] Valdez Frey MD [address] [facility] [address] [place] [address] 08/30/2025 11:30 AM MINIATURE TRAIN DRIVER Office Visit [facility] Internal Medicine - [place] [address] [facility] [address] [place] [address] [place] [address] [address] [facility] [address] [place] [address] documented as of this encounter Visit Diagnoses Diagnosis Cough- Primary documented in this encounter Care Teams C Software Developer Relationship Specialty [place] [address] [facility] [address] Macias [address] [address] PCP - General Internal Medicine 08/25/24 documented as of this encounter
--- OUTSIDE RECORDS SUMMARY | 2025-01-17 06:16 | XMS_ITS | Encounter Summary ---
Author Organization [facility] Address [address] [place] [address] Care Team Providers Care Is Project Manager Name Role Phone Mimi Fernandez MD Primary Care Provider [phone] Encounter Details Date Type Department Care Team (Late st Contact Info) Description 10/22/1999 Outpatient Historical [facility] [address] [place] [address] [address] [place] [address] Jaya Roper MD NO ADDRESS ON FILE Social History Tobacco Use Types Packs/Day Years Used Date Smoking Tobacco: Never Assessed Sex and Gender Information Value Date Recorded Sex Assigned at Not on file 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 BUSINESS BROKER Gender Identity Not on file Sexual Orientation Not on file documented as of this encounter Plan of Treatment Upcoming Encounters Date Type Department Care Team (Late st Contact Info) Description 03/30/2025 9:00 AM CDT Office Visit [facility] - [facility] [address] [facility] [address] [place] [address] Valdez Frey MD [address] [facility] [address] [place] [address] 08/30/2025 11:30 AM BUSINESS BROKER Office Visit [facility] Internal Medicine - [place] [address] [facility] [address] [place] [address] [place] [address] [facility] [address] [place] [address] documented as of this encounter Visit Diagnoses Not on filedocumented in this encounter Care Teams Is Project Manager Relationship Specialty [place] [address] [facility] [address] Gilberto Ayala [address] [address] PCP - General Internal Medicine 08/25/24 documented as of this encounter
--- OUTSIDE RECORDS SUMMARY | 2025-01-17 06:16 | XMS_ITS | Encounter Summary ---
Author Organization [facility] Address [address] [place] [address] Care Team Providers Care Fruit Canner Name Role Phone Mimi Fernandez MD Primary Care Provider [phone] Encounter Details Date Type Department Care Team (Late st Contact Info) Description 02/04/2008 Outpatient Historical [facility] Primary Care - [facility] [address] [place] [address] [address] [place] [address] Jaya Roper MD NO ADDRESS ON FILE Social History Tobacco Use Types Packs/Day Years Used Date Smoking Tobacco: Never Assessed Sex and Gender Information Value Date Recorded Sex Assigned at Not on file 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 PRINT LINE SUPERVISOR Gender Identity Not on file Sexual Orientation Not on file documented as of this encounter Plan of Treatment Upcoming Encounters Date Type Department Care Team (Late st Contact Info) Description 03/30/2025 9:00 AM CDT Office Visit [facility] Heart and Vascular - [facility] [address] [facility] [address] [place] [address] Valdez Frey MD [address] [facility] [address] [place] [address] 08/30/2025 11:30 AM PRINT LINE SUPERVISOR Office Visit [facility] Internal Medicine - [place] [address] [facility] [address] [place] [address] [place] [address] [facility] [address] [place] [address] documented as of this encounter Visit Diagnoses Not on filedocumented in this encounter Care Teams Fruit Canner Relationship Specialty [place] [address] [facility] [address] Gilberto Ayala [address] [address] PCP - General Internal Medicine 08/25/24 documented as of this encounter
--- OUTSIDE RECORDS SUMMARY | 2025-01-17 06:16 | XMS_ITS | Encounter Summary ---
Author Organization [facility] Address [address] [place] [address] Care Team Providers Care Nuisance Animal Damage Control Agent Name Role Phone Mimi Fernandez MD Primary Care Provider [phone] Encounter Details Date Type Department Care Team (Latest Contact Info) Description 03/23/2008 Outpatient Historical [facility] Primary Care - [facility] [address] [place] [address] [address] [place] [address] Jaya Roper MD NO ADDRESS ON FILE Cor Athrscl-Uns Vessel Social History Tobacco Use Types Packs/Day Years Used Date Smoking Tobacco: Never Assessed Sex and Gender Information Value Date Recorded Sex Assigned at Not on file 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 Gender Identity Not on file Sexual Orientation Not on file documented as of this encounter Plan of Treatment Upcoming Encounters Date Type Department Care Team (Late st Contact Info) Description 03/30/2025 9:00 AM CDT Office Visit [facility] Heart and Vascular - [facility] [address] [facility] [address] [place] [address] Valdez Frey MD [address] [facility] [address] [place] [address] 08/30/2025 11:30 AM PEANUT FARMER Office Visit [facility] Internal Medicine - [place] [address] [facility] [address] [place] [address] [place] [address] [facility] [address] [place] [address] documented as of this encounter Procedures Procedure Name Priority Date/Time Associated Diagnosis Comments HEPATIC FUNCTION PANEL Routine 03/23/2008 8:03 AM CDT LIPID PANEL Routine 03/23/2008 8:03 AM CDT documented in this encounter Results * (ABNORMAL) LIPID PANEL (03/23/2008 8:03 AM CDT) TRIGLYCERIDE 222(H) 10 - 149 mg/dL [facility] HDL 36(L) 40 - 59 mg/dL [facility] CHOL/HDL RATIO 3.6 2.0 - 5.0 [facility] CHOLESTEROL 130 100 - 199 mg/dL [facility] LDL CALCULATED 50 <=99 mg/dL [facility] LIPID PANEL COMMENT See Below [facility] Comment: The adult ATP and pediatric NCEP classifications for lipids are available on the [facility] Intranet at: [email or web address] [facility]: Lab Policies and Procedures,Current [facility]: Lipid Panel Interpretation Blood specimen (specimen) 03/23/2008 8:03 AM CDT 03/23/2008 10:31 AM CDT Jaya Roper MD CHEMISTRY ORDERABLES Edited [facility] CLIA# [id number] [address] [place] [address] * HEPATIC FUNCTION PANEL (03/23/2008 8:03 AM CDT) BILIRUBIN TOTAL 0.4 0.2 - 1.0 mg/dL [facility] ALKALINE PHOSPHATASE 92 40 - 129 U/L [facility] BILIRUBIN DIRECT 0.1 0.0 - 0.3 mg/dL [facility] TOTAL PROTEIN 7.4 6.3 - 8.6 g/dL [facility] AST 24 12 - 38 U/L [facility] ALBUMIN 4.7 3.4 - 4.8 g/dL [facility] ALT 19 0 - 41 U/L [facility] Blood specimen (specimen) 03/23/2008 8:03 AM CDT 03/23/2008 10:31 AM CDT us Jaya Roper MD CHEMISTRY ORDERABLES Final Re sult [facility] CLIA# [id number] [address] [place] [address] documented in this encounter Visit Diagnoses Diagnosis Coronary atherosclerosis of unspecified type of vessel, benton or graft documented in this encounter Care Teams Nuisance Animal Damage Control Agent Relationship Specialty [place] [address] Gilberto Ayala [facility] [address] [place] [address] PCP - General Internal Medicine 08/25/24 documented as of this encounter
--- OUTSIDE RECORDS SUMMARY | 2025-01-17 06:16 | XMS_ITS | Encounter Summary ---
Author Organization [facility] Address [address] [place] [address] Care Team Providers Care Managing Principal Name Role Phone Mimi Fernandez MD Primary Care Provider [phone] Encounter Details Date Type Department Care Team (Late st Contact Info) Description 06/23/2006 Outpatient Historical [facility] Primary Care - [facility] [address] [place] [address] [address] [place] [address] Jaya Roper MD NO ADDRESS ON FILE Social History Tobacco Use Types Packs/Day Years Used Date Smoking Tobacco: Never Assessed Sex and Gender Information Value Date Recorded Sex Assigned at Not on file 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 CLOTH BRUSHING AND SUEDING SUPERVISOR Gender Identity Not on file Sexual Orientation Not on file documented as of this encounter Plan of Treatment Upcoming Encounters Date Type Department Care Team (Late st Contact Info) Description 03/30/2025 9:00 AM CDT Office Visit [facility] Heart and Vascular - [facility] [address] [facility] [address] [place] [address] Valdez Frey MD [address] [facility] [address] [place] [address] 08/30/2025 11:30 AM CLOTH BRUSHING AND SUEDING SUPERVISOR Office Visit [facility] Internal Medicine - [place] [address] [facility] [address] [place] [address] [place] [address] [facility] [address] [place] [address] documented as of this encounter Visit Diagnoses Not on filedocumented in this encounter Care Teams Managing Principal Relationship Specialty [place] [address] [facility] [address] Gilberto Ayala [address] [address] PCP - General Internal Medicine 08/25/24 documented as of this encounter
--- OUTSIDE RECORDS SUMMARY | 2025-01-17 06:16 | XMS_ITS | Encounter Summary ---
Author Organization [facility] Address [address] [place] [address] Care Team Providers Care Physician Executive Name Role Phone Mimi Fernandez MD Primary Care Provider [phone] Encounter Details Date Type Department Care Team (Late st Contact Info) Description 01/12/2004 Outpatient Historical [facility] - [facility] [address] [place] [address] [address] [place] [address] Jaya Roper MD NO ADDRESS ON FILE Social History Tobacco Use Types Packs/Day Years Used Date Smoking Tobacco: Never Assessed Sex and Gender Information Value Date Recorded Sex Assigned at Not on file 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 CUSTOMER LOYALTY REPRESENTATIVE Gender Identity Not on file Sexual Orientation Not on file documented as of this encounter Plan of Treatment Upcoming Encounters Date Type Department Care Team (Late st Contact Info) Description 03/30/2025 9:00 AM CDT Office Visit [facility] Heart and Vascular - [facility] [address] [facility] [address] [place] [address] Valdez Frey MD [address] [facility] [address] [place] [address] 08/30/2025 11:30 AM CUSTOMER LOYALTY REPRESENTATIVE Office Visit [facility] Internal Medicine - [place] [address] [facility] [address] [place] [address] [place] [address] [facility] [address] [place] [address] documented as of this encounter Visit Diagnoses Not on filedocumented in this encounter Care Teams Physician Executive Relationship Specialty [place] [address] [facility] [address] Gilberto Ayala [address] [address] PCP - General Internal Medicine 08/25/24 documented as of this encounter
--- OUTSIDE RECORDS SUMMARY | 2025-01-17 06:16 | XMS_ITS | Encounter Summary ---
Author Organization [facility] Address [address] [place] [address] Care Team Providers Care Counselor Supervisor Name Role Phone Mimi Fernandez MD Primary Care Provider [phone] Encounter Details Date Type Department Care Team (Late st Contact Info) Description 06/23/2006 Orders Only [facility] Primary Care - [address] [address] Jaya Roper MD NO ADDRESS ON FILE Social History Tobacco Use Types Packs/Day Years Used Date Smoking Tobacco: Never Assessed Sex and Gender Information Value Date Recorded Sex Assigned at Not on file 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 DIRECTOR MANUFACTURING ENGINEERING Gender Identity Not on file Sexual Orientation Not on file documented as of this encounter Progress Notes * Jaya Roper MD - 07/05/2008 7:53 PM CDT BLOOD PRESSURE: 130/80 Left Arm Sitting TEMPERATURE: 97.6??f Oral WEIGHT: 163lbs NURSE NAME: Gayle Meng M ALLERGIES: No known drug allergies. MEDICATIONS: Medications may have changed. Dr devi review medications. CHIEF COMPLAINT Seen for a preventive examination. 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 does not know why. No evident change in diet or activity. ENT: No hearing loss, epistaxis, hoarseness or dysphagia. No sinus congestion.. ENDOCRINE: No heat or cold intolerance, no excessive thirst.. CARDIAC: No chest pain, palpitations, orthopnea, dyspnea on exertion, or paroxysmal nocturnal dyspnea.. no further palpitations. RESPIRATORY: No dyspnea, cough, hemoptysis or wheezing.. SKIN/BREAST/CHEST: . spots on head--wondered about removal : No dysuria or hematuria.. good response to viagra GI: No abdominal pain, nausea, vomiting, diarrhea, constipation, melena, or hematochezia.. mild increased gas since beginning fruit daily.. 2 days of inguinal soreness weeksago. MUSCULOSKELETAL: . arches and feet hurt on arising, but then resolve fully after a couple of minutes. NO problems the rest of the day. PHYSICAL EXAMINATION: CONSTITUTIONAL: GENERAL APPEARANCE: Healthy appearing patient in no distress. NECK/THYROID: Trachea midline. No thyroid enlargement, tenderness, or mass. No supraclavicular or cervical adenopathy. RESPIRATORY: Clear to auscultation and percussion. Normal respiratory effort. CARDIOVASCULAR: CARDIAC: Regular rhythm. No murmurs, rubs, or gallops. ARTERIAL: Aortic pulses of normal amplitude with no bruits. EDEMA/VARICOSITIES OF EXTREMITIES: No edema or varicosities. GASTROINTESTINAL: ABDOMEN: Soft, non-tender, without masses. Bowel sounds active. LIVER/SPLEEN/KIDNEY: No hepatosplenomegaly, tenderness or nodularity. Kidneys not palpable. HERNIA: A SMALL, REDUCIBLE, NON-TENDER RIGHT INGUINAL HERNIA IS PRESENT. GENITOURINARY: SCROTUM/CONTENTS: Normal in appearance with no hydrocele, spermatocele, tenderness of cord, or testicular mass. PROSTATE: Symmetrical and smooth with no nodularity or tenderness. MUSCULOSKELETAL EXAM: EXTREMITIES: BILATERAL LOWER EXTREMITIES: No misalignment or tenderness. Full range of motion. Normal stability,strength and tone. SKIN: RASH/LESION #1 LOCATION: Left temporal area of the head. ASSESSMENT Seborrheic keratosis 702.10. TREATMENT Cryotherapy was performed. RASH/LESION #2 LOCATION: Lower extremity. ASSESSMENT Onychomycosis 110.1. NEUROLOGIC: CRANIAL NERVES: administrative resident II-XII grossly intact. DEEP TENDON REFLEXES: Deep tendon reflexes 2+/4 and symmetrical. 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 272.4-HYPERLIPIDEMIA very mild changes do not require intervention now. LAB ORDERS: Order number: [id number] Test Ordered: TSH (REFLEX FREE T4/FREE T3) 1727 Order number: [id number] Test Ordered: LIPID PANEL 1078 783.21-ABNORMAL LOSS OF WEIGHT probably just a variation,but it is not clearly explained, so will check some lab. LAB ORDERS: Order number: [id number] Test Ordered: CBC W/ DIFFERENTIAL 3150 702.19-SEBORRHEIC KERATOSIS area treated with liquid nitrogen on left taoism V76.44-SCREEN FOR CA OF PROSTATE LAB ORDERS: Order number: [id number] Test Ordered: PSA, TOTAL 1002 550.91-INGUINAL HERNIA had only brief sx and it is small. will observe HEALTH MAINTENANCE: LAST PROSTATE EXAM: yes-2004. LAST DATE PSA DONE: yes-2004. DISCUSSED SMOKING: yes-neg. LAST TD: yes-unknown SEXUAL ACTIVITY DISCUSSED: yes-. SUBSTANCE ABUSE DISCUSSED: yes-neg. INJURY PREVENTION DISCUSSED: yes-pos. DIET AND EXERCISE DISCUSSED: yes-pos. ADVANCED DIRECTIVES DISCUSSED: yes-neg. LAST DATE COLONOSCOPY: 2003. ( sejal/jazmin antunez) LAST DATE COLONOSCOPY: yes-2004. LAST DATE FLEX SIG: yes-neg. LAST DATE FOBT: yes-2004. LAST BONE DENSITY DATE: yes-na. DIABETIC EYE EXAM: na. DIABETIC EYE EXAM PROVIDER: na. DIABETIC FOOT EXAM: na LAST FLU VACCINE:yes-neg LAST PNEUMOCOCCAL:yes-neg RETURN VISIT : Patient instructed to return in 1 year. call if weight drops further Electronically Signed by: Jaya Roper MD on Friday, June 23, 2006 documented in this encounter Plan of Treatment Upcoming Encounters Date Type Department Care Team (Late st Contact Info) Description 03/30/2025 9:00 AM CDT Office Visit [facility] Heart and Vascular - [facility] [address] [facility] [address] [place] [address] Valdez Frey MD [address] [facility] [address] [place] [address] 08/30/2025 11:30 AM DIRECTOR MANUFACTURING ENGINEERING Office Visit [facility] Internal Medicine - [place] [address] [facility] [address] [facility] [place] [address] [place] [address] [facility] [address] Gilberto Ayala [facility] [address] [place] [address] documented as of this encounter Visit Diagnoses Not on filedocumented in this encounter Care Teams Counselor Supervisor Relationship Specialty [place] [address] Gilberto Ayala [facility] [address] [place] [address] PCP - General Internal Medicine 08/25/24 documented as of this encounter
--- OUTSIDE RECORDS SUMMARY | 2025-01-17 06:16 | XMS_ITS | Encounter Summary ---
Author Organization [facility] Address 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 Gender Identity Not on file Sexual Orientation Not on file documented as of this encounter Plan of Treatment Upcoming Encounters Date Type Department Care Team (Late st Contact Info) Description 03/30/2025 9:00 AM CDT Office Visit [facility] Heart and Vascular - [facility] [address] [facility] [address] [place] [address] Valdez Frey MD [address] [facility] [address] [place] [address] 08/30/2025 11:30 AM AIR CONDITIONING INSTALLER Office Visit [facility] Internal Medicine - [place] [address] [facility] [address] [place] [address] [place] [address] [facility] [address] [place] [address] documented as of this encounter Visit Diagnoses Not on filedocumented in this encounter Care Teams Restaurant Crew Relationship Specialty [place] [address] [facility] [address] Gilberto Ayala [address] [address] PCP - General Internal Medicine 08/25/24 documented as of this encounter
--- OUTSIDE RECORDS SUMMARY | 2025-01-17 06:16 | XMS_ITS | Encounter Summary ---
Author Organization [facility] Address [address] [place] [address] Care Team Providers Care Technical Sales Support Manager Name Role Phone Mimi Fernandez MD Primary Care Provider [phone] Encounter Details Date Type Department Care Team (Late st Contact Info) Description 10/07/[address] 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 Heart and Vascular - [facility] [address] [facility] [address] [place] [address] Valdez Frey MD [address] [facility] [address] [place] [address] 08/30/2025 11:30 AM FINANCIAL PLANNER Office Visit [facility] Internal Medicine - [place] [address] [facility] [address] [place] [address] [place] [address] [facility] [address] [place] [address] documented as of this encounter Visit Diagnoses Not on filedocumented in this encounter Care Teams Technical Sales Support Manager Relationship Specialty [place] [address] [facility] [address] Gilberto Ayala [address] [address] PCP - General Internal Medicine 08/25/24 documented as of this encounter
--- OUTSIDE RECORDS SUMMARY | 2025-01-17 06:16 | XMS_ITS | Encounter Summary ---
Author Organization [facility] Address [address] [place] [address] Care Team Providers Care Consulting Software Engineer Name Role Phone Mimi Fernandez MD Primary Care Provider [phone] Encounter Details Date Type Department Care Team (Late st Contact Info) Description 01/21/2008 Orders Only [facility] Primary Care - [facility] [address] [place] [address] [address] [place] [address] Jaya Roper MD NO ADDRESS ON FILE Social History Tobacco Use Types Packs/Day Years Used Date Smoking Tobacco: Never Assessed Sex and Gender Information Value Date Recorded Sex Assigned at Not on file 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 WINDOWS APPLICATION ADMINISTRATOR Gender Identity Not on file Sexual Orientation Not on file documented as of this encounter Plan of Treatment Upcoming Encounters Date Type Department Care Team (Late st Contact Info) Description 03/30/2025 9:00 AM CDT Office Visit [facility] Heart and Vascular - [facility] [address] [facility] [address] [place] [address] Valdez Frey MD [address] [facility] [address] [place] [address] 08/30/2025 11:30 AM WINDOWS APPLICATION ADMINISTRATOR Office Visit [facility] Internal Medicine - [place] [address] [facility] [address] [place] [address] [place] [address] [facility] [address] [place] [address] documented as of this encounter Visit Diagnoses Not on filedocumented in this encounter Care Teams Consulting Software Engineer Relationship Specialty [place] [address] [facility] [address] Gilberto Ayala [address] [address] PCP - General Internal Medicine 08/25/24 documented as of this encounter
--- OUTSIDE RECORDS SUMMARY | 2025-01-17 06:16 | XMS_ITS | Encounter Summary ---
Author Organization [facility] Address [address] [place] [address] Care Team Providers Care Supervisor Gate Services Name Role Phone Mimi Fernandez MD Primary Care Provider [phone] Encounter Details Date Type Department Care Team (Late st Contact Info) Description 06/23/2006 Outpatient Historical [facility] Primary Care - [facility] [address] [place] [address] [address] [place] [address] Jaya Roper MD NO ADDRESS ON FILE Social History Tobacco Use Types Packs/Day Years Used Date Smoking Tobacco: Never Assessed Sex and Gender Information Value Date Recorded Sex Assigned at Not on file 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 TEST FACILITY ENGINEER Gender Identity Not on file Sexual Orientation Not on file documented as of this encounter Plan of Treatment Upcoming Encounters Date Type Department Care Team (Late st Contact Info) Description 03/30/2025 9:00 AM CDT Office Visit [facility] Heart and Vascular - [facility] [address] [facility] [address] [place] [address] Valdez Frey MD [address] [facility] [address] [place] [address] 08/30/2025 11:30 AM TEST FACILITY ENGINEER Office Visit [facility] Internal Medicine - [place] [address] [facility] [address] [place] [address] [place] [address] [facility] [address] [place] [address] documented as of this encounter Visit Diagnoses Not on filedocumented in this encounter Care Teams Supervisor Gate Services Relationship Specialty [place] [address] [facility] [address] Gilberto Ayala [address] [address] PCP - General Internal Medicine 08/25/24 documented as of this encounter
--- OUTSIDE RECORDS SUMMARY | 2025-01-17 06:16 | XMS_ITS | Encounter Summary ---
Author Organization [facility] Address 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 Gender Identity Not on file Sexual Orientation Not on file documented as of this encounter Plan of Treatment Upcoming Encounters Date Type Department Care Team (Late st Contact Info) Description 03/30/2025 9:00 AM CDT Office Visit [facility] Heart and Vascular - [facility] [address] [place] [address] [address] [place] [address] Valdez Frey MD [address] [facility] [address] [place] [address] 08/30/2025 11:30 AM LIFE CLAIMS EXAMINER Office Visit [facility] Internal Medicine - [place] [address] [facility] [address] [place] [address] [place] [address] [facility] [place] [facility] [address] [place] [address] documented as of this encounter Procedures Procedure Name Priority Date/Time Associated Diagnosis Comments CKMB W/REFLEX CK Timed Study 01/22/2008 11:0 5 PM CDT TROPONIN Timed Study 01/22/2008 11:05 PM CDT CL CORONARY ANGIOGRAM Routine 01/22/2008 7:01 PM CDT CKMB W/REFLEX CK Timed Study 01/22/2008 4:10 PM CDT TROPONIN Timed Study 01/22/2008 4:10 PM CDT POC ACTIVATED CLOTTING TIME Routine 01/22/2008 2:25 PM CDT PT AND APTT Stat 01/22/2008 8:43 AM CDT CBC WITH DIFFERENTIAL Stat 01/22/2008 8:43 AM CDT LIPID PANEL Stat 01/22/2008 8:43 AM CDT BASIC METABOLIC PANEL Stat 01/22/2008 8:43 AM CDT documented in this encounter Results * TROPONIN (01/22/2008 11:05 PM CDT) TROPONIN T 0.01 <=0.03 ng/mL [facility] TROPONIN T INTERP Negative [facility] Blood specimen (specimen) 01/22/2008 11:05 PM CDT 01/22/2008 11:13 PM CDT us Tom Guerrero MD CHEMISTRY ORDERABLES Edited [facility] [address] [address] [place], [place] [address] * CKMB W/REFLEX CK (01/22/2008 11:05 PM CDT) CKMB 2.9 <=6.7 ng/mL [facility] CKMB INTERP Negative [facility] Blood specimen (specimen) 01/22/2008 11:05 PM CDT 01/22/2008 11:13 PM CDT Tom Guerrero MD CHEMISTRY ORDERABLES Edited [facility] [address] [facility] [place] [address] * CL CORONARY ANGIOGRAM (01/22/2008 7:01 PM CDT) Narrative INTERFACE SYSTEM - 01/22/2008 7:01 PM CDT [facility] [address] [place] [address] [email or web address] Comprehensive Report Patient: Cameron Liu Study ID: [id number] Gender: M : 1945 Age: 62 years Race: 1 Room: Bed: Height: 67 in ( 170.2 cm ) Study Date: January 22, 2008 Patient status: Outpatient Weight: 166.1 lb ( 75.5 kg ) Access. #: [id number] POC: Attending MD: Ebenezer Performing MD: Ebenezer Referring Physician: Jaya Roper MD, Tom Guerrero MD Indications and History: INDICATIONS: Unstable angina, CCS class III, with onset more than 1 week prior to admission. The patient stable. Abnormal stress test. CLINICAL PRESENTATION: The patient reported moderate pressure-type sub-sternal pain, during exertion, of 3 months duration. HISTORY: The patient had family history of coronary artery disease, hypertension, and untreated hypercholesterolemia. PRIOR DIAGNOSTIC TEST RESULTS: Previous exercise stress echocardiogram performed on January 21, 2008 was positive. There was ischemia in the territory of the left anterior descending in the anteroapical and septal left ventricular wall. Procedure(s) Performed: DIAGNOSTIC PROCEDURES: Left heart catheterization. Left ventriculography. Selective coronary angiography. SUPPORT INTERVENTIONS: PTCA/Stent of the proximal LAD. Study Conclusions: SUMMARY - Global left ventricular function was normal. EF estimated by contrast ventriculography was 60 %. - There was severe 1 -vessel coronary artery disease ( 95 % LAD). Proximal LAD: There was a discrete 95 % stenosis in the mid third of the vessel segment : Proximal circumflex: There was a discrete 40 % stenosis at the ostium of the vessel segment : - A successful bare metal stent with balloon angioplasty was performed on the 95 % lesion in the proximal LAD. Following intervention there was an excellent angiographic appearance with a 0 % residual stenosis. RECOMMENDATIONS Successful percutaneous coronary intervention of the proximal LAD. The patient should continue with the present medications. The patient should take clopidogrel 75 PO QD for 4 months at which point it can be discontinued. The patient should take simvastatin 40 PO QD indefinitely. The patient will remain in the hospital overnight for observation and rest; I anticipate discharge tomorrow. A follow-up appointment is recommended in 4 weeks. The patient was instructed to contact the office should symptoms worsen at any point. The patient has been instructed to follow-up with you (the referring physician) in the near future. COMPLICATIONS: There were no complications. Description of Procedure: BACKGROUND INFORMATION: The procedures, together with their attendant risks and alternatives, and conscious sedation were explained to the patient and informed consent was obtained. Contrast ( Optiray, 175 ml ) was administered during the procedure. The patient was given 11.000 mL Angiomax Bolus(IVP) 5mg/ml. The patient was given 1.700 mg/kg/hr Angiomax Drip 250mg/50ml. The patient was given 100.000 mL (IV) IV Solutions. The patient was given 200.000 mcg NTG (IC). The patient was given 3.000 l/min OXYGEN. The patient was given 600.000 mg PLAVIX. The patient was given 4.000 mg VERSED (IVP). NARRATIVE: - Right femoral artery access. The procedure was done with local anesthesia [lidocaine 2 %] and the modified Seldinger technique. - Left coronary artery angiography. A catheter was advanced to the ascending aorta and positioned in the vessel origin , under fluoroscopic guidance. Digital angiography was performed in multiple projections using hand-injection of contrast. - Right coronary artery angiography. A catheter was advanced to the ascending aorta and positioned in the vessel origin , under fluoroscopic guidance. Digital angiography was performed in multiple projections using hand-injection of contrast. - Left heart catheterization. A catheter was advanced to the ascending aorta. The catheter was advanced across the aortic valve. Pressure was recorded in the aorta and left ventricle. Ventriculography was performed using power injection of contrast agent. 30 degree SY images were obtained. Post-ventriculography LV pressure was obtained. The catheter was gradually withdrawn into the aorta under continuous pressure monitoring and aortic pressure was recorded. - Proceeded with coronary intervention as noted below. - Arterial hemostasis was deferred and the sheaths were sutured in place. Hemodynamics: IMPRESSIONS: Hemodynamic assessment demonstrated normal hemodynamics. Cardiac structures: VENTRICULOGRAPHY: There were no left ventricular regional wall motion abnormalities. Global left ventricular function was normal. EF estimated by contrast ventriculography was 60 %. VALVES: Aortic valve: The valve was evaluated by left ventriculography. The aortic valve appeared to be structurally normal. Aortic valve leaflets exhibited normal thickness and normal excursion. There was no aortic stenosis. Mitral valve: The valve was evaluated by left ventriculography. The mitral valve appeared grossly normal. The leaflets exhibited normal thickness and normal excursion. The mitral valve exhibited no regurgitation. Coronary and graft angiography: The coronary circulation is right dominant. LEFT ANTERIOR DESCENDING AND BRANCHES: Proximal LAD: There was a discrete 95 % stenosis in the mid third of the vessel segment : Distal LAD: The vessel was small to medium. LEFT CIRCUMFLEX AND BRANCHES: Proximal circumflex: There was a discrete 40 % stenosis at the ostium of the vessel segment : RIGHT CORONARY AND BRANCHES: RCA: Angiography showed minor luminal irregularities. RPDA: The vessel was medium-sized. IMPRESSIONS: There was severe 1 -vessel coronary artery disease ( 95 % LAD). Coronary Interventions: FIRST LESION: First lesion Summary: A successful bare metal stent with balloon angioplasty was performed on the 95 % lesion in the proximal LAD. Following intervention there was an excellent angiographic appearance with a 0 % residual stenosis. The residual lesion was discrete. Before the intervention there was PAULINA 3 flow. Following the procedure, the intervention site exhibited PAULINA 3 flow. First lesion intervention detail: Setup: A 6F XBLAD3.5 guiding catheter was used to intubate the vessel. The lesion was crossed with a .014 x 190 cm BMW wire. Procedures: Balloon angioplasty was performed with a 2.5 x 15mm [place] 2 RX balloon. 1 inflation(s) were performed, with a maximum inflation pressure of 6 mariela. A 3.0 mm x 12 mm Vision stent was deployed and 1 inflation(s) were performed. with one inflation at a maximum inflation pressure of 16 mariela There were no site complications. Site complications/results included: no acute closure and no perforation. Condition1: --- Pressure mmHg Rate dPdt AO 141-S/ 73-D, 101-M 58 BPM LV 135-S/ 4-BD, 11-ED 59 BPM 2300 AOp 141-S/ 72-D, 101-M 59 BPM PBa 136-S/ 70-D, 98-M 63 BPM PBv 137-S/ 5-BD, 12-ED 63 BPM 2680 Prepared and Electronically Authenticated Tom Guerrero MD Confirmed January 22, 2008 18:10:04 Procedure Note Provider, Historical - 01/22/[address] [place] [address] [email or web address] Comprehensive Report Patient: Cameron Liu Study ID: [id number] Gender: M : 1945 Age: 62 years Race: 1 Room: Bed: Height: 67 in ( 170.2 cm ) Study Date: January 22, 2008 Patient status: Outpatient Weight: 166.1 lb ( 75.5 kg ) Access. #: [id number] POC: Attending MD: Ebenezer Call MD: Ebenezer Referring Physician: Jaya Roper MD, Tom Guerrero MD Indications and History: INDICATIONS: Unstable angina, CCS class III, with onset more than 1 week prior to admission. The patient stable. Abnormal stress test. CLINICAL PRESENTATION: The patient reported moderate pressure-type sub-sternal pain, during exertion, of 3 months duration. HISTORY: The patient had family history of coronary artery disease, hypertension, and untreated hypercholesterolemia. PRIOR DIAGNOSTIC TEST RESULTS: Previous exercise stress echocardiogram performed on January 21, 2008 was positive. There was ischemia in the territory of the left anterior descending in the anteroapical and septal left ventricular wall. Procedure(s) Performed: DIAGNOSTIC PROCEDURES: Left heart catheterization. Left ventriculography. Selective coronary angiography. SUPPORT INTERVENTIONS: PTCA/Stent of the proximal LAD. Study Conclusions: SUMMARY - Global left ventricular function was normal. EF estimated by contrast ventriculography was 60 %. - There was severe 1 -vessel coronary artery disease ( 95 % LAD).Proximal LAD: There was a discrete 95 % stenosis in the mid third of the vessel segment : Proximal circumflex: There was a discrete 40 % stenosis at the ostium of the vessel segment : - A successful bare metal stent with balloon angioplasty was performedon the 95 % lesion in the proximal LAD. Following intervention there was an excellent angiographic appearance with a 0 % residual stenosis. RECOMMENDATIONS Successful percutaneous coronary intervention of the proximal LAD. The patient should continue with the present medications. The patient should take clopidogrel 75 PO QD for 4 months at which point it can be discontinued. The patient should take simvastatin 40 PO QD indefinitely. The patient will remain in the hospital overnight for observation andre; I anticipate discharge tomorrow. A follow-up appointment is recommendedin 4 weeks. The patient was instructed to contact the office shouldsymptoms worsen at any point. The patient has been instructed to follow-up withyou (the referring physician) in the near future. COMPLICATIONS: There were no complications. Description of Procedure: BACKGROUND INFORMATION: The procedures, together with their attendant risks and alternatives,and conscious sedation were explained to the patient and informed consentwas obtained. Contrast ( Optiray, 175 ml ) was administered during the procedure. The patient was given 11.000 mL Angiomax Bolus(IVP) 5mg/ml.The patient was given 1.700 mg/kg/hr Angiomax Drip 250mg/50ml. The patientwas given 100.000 mL (IV) IV Solutions. The patient was given 200.000 mcgNTG (IC). The patient was given 3.000 l/min OXYGEN. The patient was given 600.000 mg PLAVIX. The patient was given 4.000 mg VERSED (IVP). NARRATIVE: - Right femoral artery access. The procedure was done with local anesthesia [lidocaine 2 %] and the modified Seldinger technique. - Left coronary artery angiography. A catheter was advanced to the ascending aorta and positioned in the vessel origin , under fluoroscopic guidance. Digital angiography was performed in multiple projections using hand-injection of contrast. - Right coronary artery angiography. A catheter was advanced to the ascending aorta and positioned in the vessel origin , under fluoroscopic guidance. Digital angiography was performed in multiple projections using hand-injection of contrast. - Left heart catheterization. A catheter was advanced to the ascending aorta. The catheter was advanced across the aortic valve. Pressure was recorded in the aorta and left ventricle. Ventriculography was performed using power injection of contrast agent. 30 degree SY images were obtained. Post-ventriculography LV pressure was obtained. The catheter was gradually withdrawn into the aorta under continuous pressure monitoring and aortic pressure was recorded. - Proceeded with coronary intervention as noted below. - Arterial hemostasis was deferred and the sheaths were sutured inplace. Hemodynamics: IMPRESSIONS: Hemodynamic assessment demonstrated normal hemodynamics. Cardiac structures: VENTRICULOGRAPHY: There were no left ventricular regional wall motion abnormalities.Global left ventricular function was normal. EF estimated by contrast ventriculography was 60 %. VALVES: Aortic valve: The valve was evaluated by left ventriculography. Theaortic valve appeared to be structurally normal. Aortic valve leafletsexhibited normal thickness and normal excursion. There was no aortic stenosis. Mitral valve: The valve was evaluated by left ventriculography. Themitral valve appeared grossly normal. The leaflets exhibited normal thicknessand normal excursion. The mitral valve exhibited no regurgitation. Coronary and graft angiography: The coronary circulation is right dominant. LEFT ANTERIOR DESCENDING AND BRANCHES: Proximal LAD: There was a discrete 95 % stenosis in the mid third of the vessel segment : Distal LAD: The vessel was small to medium. LEFT CIRCUMFLEX AND BRANCHES: Proximal circumflex: There was a discrete 40 % stenosis at the ostium of the vessel segment : RIGHT CORONARY AND BRANCHES: RCA: Angiography showed minor luminal irregularities. RPDA: The vesselwas medium-sized. IMPRESSIONS: There was severe 1 -vessel coronary artery disease ( 95 % LAD). Coronary Interventions: FIRST LESION: First lesion Summary: A successful bare metal stent with balloon angioplasty was performed on the 95 % lesion in the proximal LAD.Following intervention there was an excellent angiographic appearance with a 0 % residual stenosis. The residual lesion was discrete. Before the intervention there was PAULINA 3 flow. Following the procedure, the intervention site exhibited PAULINA 3 flow. First lesion intervention detail: Setup: A 6F XBLAD3.5 guiding catheter was used to intubate the vessel.The lesion was crossed with a .014 x 190 cm BMW wire. Procedures: Balloon angioplasty was performed with a 2.5 x 15mm [place]2 RX balloon. 1 inflation(s) were performed, with a maximum inflation pressure of 6 mariela. A 3.0 mm x 12 mm Vision stent was deployed and 1 inflation(s) were performed. with one inflation at a maximum inflation pressure of 16 mariela There were no site complications. Site complications/results included:no acute closure and no perforation. Condition1: --- Pressure mmHg Rate dPdt AO 141-S/ 73-D, 101-M 58 BPM LV 135-S/ 4-BD, 11-ED 59 BPM 2300 AOp 141-S/ 72-D, 101-M 59 BPM PBa 136-S/ 70-D, 98-M 63 BPM PBv 137-S/ 5-BD, 12-ED 63 BPM 2680 Prepared and Electronically Authenticated Tom Guerrero MD Confirmed January 22, 2008 18:10:04 us Tom Guerrero MD FLUOROSCOPY ORDERABLES Final Res ult Performing Organization Address [facility] de Phone Number INTERFACE SYSTEM Refer to clinic/hospital department * TROPONIN (01/22/2008 4:10 PM CDT) TROPONIN T <0.01 <=0.03 ng/mL [facility] TROPONIN T INTERP Negative [facility] Blood specimen (specimen) 01/22/2008 4:10 PM CDT 01/22/2008 4:16 PM CDT Tom Guerrero MD CHEMISTRY ORDERABLES Edited Performing Organization Address [facility]/[employer] Phone Number [facility] [address] [place] [address] * CKMB W/REFLEX CK (01/22/2008 4:10 PM CDT) [facility] CKMB 2.2 <=6.7 ng/mL [facility] CKMB INTERP Negative [facility] Blood specimen (specimen) 01/22/2008 4:10 PM CDT 01/22/2008 4:16 PM CDT Result [facility] Tom Guerrero MD CHEMISTRY ORDERABLES Edited Performing Organization Address [facility] Co de Phone Number [facility] [address] [place] [address] * POC ACTIVATED CLOTTING TIME (01/22/2008 2:25 PM CDT) [facility] ACT POC 307 Seconds [facility] Comment: Note sheath pull range change effective 03/14/2006. ACT value for sheath pull at [facility] has been established to be < or = to 140. (See also Nursing Procedures for sheath pull in related nursing areas) Blood specimen (specimen) 01/22/2008 2:25 PM CDT 01/22/2008 2:25 PM CDT us Tom Guerrero MD POINT OF CARE TESTING Final Resu lt Performing Organization Address [facility] Co de Phone Number [facility] [address] [place] [address] * CBC WITH DIFFERENTIAL (01/22/2008 8:43 AM CDT) [facility] MCV 89.6 82.0 - 99.0 fL [facility] PLATELETS 229 140 - 350 K/uL [facility] HEMOGLOBIN 14.8 13.6 - 16.5 g/dL [facility] RDW 12.8 11.5 - 14.5 % [facility] WBC 5.1 4.0 - 9.8 K/uL [facility] MCH 30.1 27.2 - 32.6 pg [facility] MPV 10.1 9.3 - 12.4 fL [facility] HEMATOCRIT 44.0 40.0 - 48.0 % [facility] RDW-STDEV 41.3 37.1 - 48.7 fL [facility] RBC 4.91 4.50 - 5.40 M/uL [facility] MCHC 33.6 31.5 - 35.5 % [facility] EOSINOPHILS 2 0 - 7 % [facility] EOSINOPHIL ABSOLUTE 0.11 0.00 - 0.70 K/uL [facility] LYMPHOCYTES 27 16 - 45 % [facility] LYMPHOCYTE ABSOLUTE 1.40 0.70 - 4.50 K/uL [facility] BASOPHILS 1 0 - 2 % [facility] BASOPHILS ABSOLUTE 0.03 0.00 - 0.20 K/uL [facility] MONOCYTES 7 3 - 13 % [facility] MONOCYTE ABSOLUTE 0.35 0.10 - 1.30 K/uL [facility] NEUTROPHILS 63 45 - 70 % [facility] NEUTROPHIL ABSOLUTE 3.24 1.90 - 7.00 K/uL [facility] Blood specimen (specimen) 01/22/2008 8:43 AM CDT 01/22/2008 8:45 AM CDT Tom Guerrero MD HEMATOLOGY ORDERABLES Edited INTERFACE SYSTEM Refer to clinic/hospital department [facility] [address] [place] [address] * (ABNORMAL) LIPID PANEL (01/22/2008 8:43 AM CDT) Pathologist [facility] LDL CALCULATED 119(H) <=99 mg/dL [facility] TRIGLYCERIDE 231(H) 10 - 149 mg/dL [facility] CHOL/HDL RATIO 5.6(H) 2.0 - 5.0 [facility] HDL 36(L) 40 - 59 mg/dL [facility] CHOLESTEROL 201(H) 100 - 199 mg/dL [facility] LIPID PANEL COMMENT See Below [facility] Comment: The adult ATP and pediatric NCEP classifications for lipids are available on the [facility] Intranet at: [email or web address] Select: Lab Policies and Procedures,Current Select: Lipid Panel Interpretation Blood specimen (specimen) 01/22/2008 8:43 AM CDT 01/22/2008 8:45 AM CDT Narrative [facility] - 01/22/2008 9:37 AM CDT FASTING Tom Guerrero MD CHEMISTRY ORDERABLES Edited [facility] [address] [facility] [address] * (ABNORMAL) BASIC METABOLIC PANEL (01/22/2008 8:43 AM CDT) [facility] CHLORIDE 106 96 - 108 mmol/L [facility] GLUCOSE 102(H) 65 - 99 mg/dL [facility] SODIUM 140 135 - 145 mmol/L [facility] CALCIUM 8.9 8.4 - 10.2 mg/dL [facility] CO2 26 22 - 30 mmol/L [facility] CREATININE 0.90 0.67 - 1.17 mg/dL [facility] POTASSIUM 4.7 3.5 - 4.9 mmol/L [facility] Comment: Slight hemolysis present. Result may be falsely elevated. BUN 13 6 - 20 mg/dL [facility] GFR, >60 >=60 mL/min/1. 7 sq meter [facility] GFR >60 >=60 mL/min/1. 7 sq meter [facility] Comment: Estimated GFR rate interpretative information for both Americans and non- Americans is available on the [facility] Intranet at: [email or web address] Select: Lab Policies and Procedures Select: Reference Ranges - GFR Blood specimen (specimen) 01/22/2008 8:43 AM CDT 01/22/2008 8:45 AM CDT Tom Guerrero MD CHEMISTRY ORDERABLES Edited [facility] [address] [place] [address] * PT AND APTT (01/22/2008 8:43 AM CDT) PROTIME 13.1 12.7 - 15.1 Seconds [facility] INR 1.0 0.9 - 1.1 [facility] Comment: INR Therapeutic Range: Adult: 2.0 - 3.0 for pulmonary embolism or prophylaxis against venous thrombosis or systemic embolization. 2.0 - 3.0 for patients with tissue heart valves. 2.5 - 3.5 for patients with mechanical heart valves or post [place]. Pediatric (12 years and under): 1.5 - 3.0 Although the target range in children is not well established, INR values of 1.5 - 3.0 are recommended for most patients. Higher values have been used in children with prosthetic cardiac valves and hereditary clotting disorders. (<3 days) therapeutic ranges have not been established. PTT 28.1 24.4 - 36.4 Seconds [facility] Comment: PTT Therapeutic Range: Heparin Level PTT (seconds) <0.10 units/mL <53 0.10 - 0.30 units/mL 53 - 67 0.30 - 0.70 units/mL* 67 - 95* 0.70 - 1.00 units/mL 95 - 116 *corresponds to therapeutic range for unfractionated heparin Blood specimen (specimen) 01/22/2008 8:43 AM CDT 01/22/2008 8:45 AM CDT us Tom Guerrero MD HEMATOLOGY ORDERABLES Edited [facility] [address] [place] [address] documented in this encounter Visit Diagnoses Diagnosis Other chest pain documented in this encounter Care Teams Outreach Manager Relationship Specialty [place] [address] Gilberto Ayala [facility] [address] [place] [address] PCP - General Internal Medicine 08/25/24 documented as of this encounter
--- OUTSIDE RECORDS SUMMARY | 2025-01-17 06:16 | XMS_ITS | Encounter Summary ---
Author Organization [facility] Address [address] [place] [address] Care Team Providers Care Commercial Real Estate Lender Name Role Phone Mimi Fernandez MD Primary Care Provider [phone] Encounter Details Date Type Department Care Team (Late st Contact Info) Description 01/19/2007 Outpatient Historical [facility] Primary Care - [facility] [address] [place] [address] [address] [place] [address] Jaya Roper MD NO ADDRESS ON FILE Social History Tobacco Use Types Packs/Day Years Used Date Smoking Tobacco: Never Assessed Sex and Gender Information Value Date Recorded Sex Assigned at Not on file 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 Gender Identity Not on file Sexual Orientation Not on file documented as of this encounter Plan of Treatment Upcoming Encounters Date Type Department Care Team (Late st Contact Info) Description 03/30/2025 9:00 AM CDT Office Visit [facility] Heart and Vascular - [facility] [address] [facility] [address] [place] [address] Valdez Frey MD [address] [facility] [address] [place] [address] 08/30/2025 11:30 AM PALEONTOLOGY TEACHER Office Visit [facility] Internal Medicine - [place] [address] [facility] [address] [place] [address] [place] [address] [facility] [address] [place] [address] documented as of this encounter Visit Diagnoses Not on filedocumented in this encounter Care Teams Commercial Real Estate Lender Relationship Specialty [place] [address] [facility] [address] Gilberto Ayala [address] [address] PCP - General Internal Medicine 08/25/24 documented as of this encounter
--- OUTSIDE RECORDS SUMMARY | 2025-01-17 06:16 | XMS_ITS | Encounter Summary ---
Author Organization [facility] Address 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 Gender Identity Not on file Sexual Orientation Not on file documented as of this encounter Plan of Treatment Upcoming Encounters Date Type Department Care Team (Late st Contact Info) Description 03/30/2025 9:00 AM CDT Office Visit [facility] Heart and Vascular - [facility] [address] [place] [address] [address] [place] [address] Valdez Frey MD [address] [facility] [address] [place] [address] 08/30/2025 11:30 AM DELPHI DEVELOPER Office Visit [facility] Internal Medicine - [place] [address] [facility] [address] [place] [address] [place] [address] [facility] Gilberto Ayala [facility] [address] [place] [address] documented as of this encounter Visit Diagnoses Diagnosis Routine general medical examination at a health care facility- Primary documented in this encounter Care Teams Agile Coach Relationship Specialty [place] [address] [facility] [address] Gilberto Ayala [address] [address] PCP - General Internal Medicine 08/25/24 documented as of this encounter
--- OUTSIDE RECORDS SUMMARY | 2025-01-17 06:16 | XMS_ITS | Encounter Summary ---
Author Organization [facility] Address 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 Gender Identity Not on file Sexual Orientation Not on file documented as of this encounter Plan of Treatment Upcoming Encounters Date Type Department Care Team (Late st Contact Info) Description 03/30/2025 9:00 AM CDT Office Visit [facility] Heart and Vascular - [facility] [address] [place] [address] [address] [place] [address] Valdez Frey MD [address] [facility] [address] [place] [address] 08/30/2025 11:30 AM PRINT AND PATTERN DESIGNER Office Visit [facility] Internal Medicine - [place] [address] [facility] [address] [place] [address] [place] [address] [facility] Gilberto [facility] [address] [place] [address] documented as of this encounter Visit Diagnoses Diagnosis Chest pain, unspecified documented in this encounter Care Teams Pipe Inspector Relationship Specialty [place] [address] [facility] [address] Gilberto Ayala [facility] [address] [place] [address] PCP - General Internal Medicine 08/25/24 documented as of this encounter
--- OUTSIDE RECORDS SUMMARY | 2025-01-17 06:16 | XMS_ITS | Encounter Summary ---
Author Organization [facility] Address 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 Gender Identity Not on file Sexual Orientation Not on file documented as of this encounter Plan of Treatment Upcoming Encounters Date Type Department Care Team (Late st Contact Info) Description 03/30/2025 9:00 AM CDT Office Visit [facility] Heart and Vascular - [facility] [address] [place] [address] [address] [place] [address] Valdez Frey MD [address] [facility] [address] [place] [address] 08/30/2025 11:30 AM TEAM MANAGER Office Visit [facility] Internal Medicine - [place] [address] [facility] [address] [place] [address] [place] [address] [facility] [address] [place] [address] documented as of this encounter Visit Diagnoses Diagnosis Cervicalgia- Primary documented in this encounter Care Teams Middle Card Tender Relationship Specialty [place] [address] [facility] [address] [place] [address] [address] PCP - General Internal Medicine 08/25/24 documented as of this encounter
--- OUTSIDE RECORDS SUMMARY | 2025-01-17 06:16 | XMS_ITS | Encounter Summary ---
Author Organization [facility] Address [address] [place] [address] Care Team Providers Care Photoengraving Sketch Maker Name Role Phone Mimi Fernandez MD Primary Care Provider [phone] Encounter Details Date Type Department Care Team (Late st Contact Info) Description 07/30/2001 Outpatient Historical [facility] Primary Care - [facility] [address] [place] [address] [address] [place] [address] Jaya Roper MD NO ADDRESS ON FILE Social History Tobacco Use Types Packs/Day Years Used Date Smoking Tobacco: Never Assessed Sex and Gender Information Value Date Recorded Sex Assigned at Not on file 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 Gender Identity Not on file Sexual Orientation Not on file documented as of this encounter Plan of Treatment Upcoming Encounters Date Type Department Care Team (Late st Contact Info) Description 03/30/2025 9:00 AM CDT Office Visit [facility] Heart and Vascular - [facility] [address] [facility] [address] [place] [address] Valdez Frey MD [address] [facility] [address] [place] [address] 08/30/2025 11:30 AM TURNING MACHINE OPERATOR Office Visit [facility] Internal Medicine - [place] [address] [facility] [address] [place] [address] [place] [address] [facility] [address] [place] [address] documented as of this encounter Visit Diagnoses Not on filedocumented in this encounter Care Teams Photoengraving Sketch Maker Relationship Specialty [place] [address] [facility] [address] Gilberto Ayala [address] [address] PCP - General Internal Medicine 08/25/24 documented as of this encounter
--- OUTSIDE RECORDS SUMMARY | 2025-01-17 06:17 | XMS_ITS | Encounter Summary ---
Author Organization [facility] Address [address] [place] [address] Care Team Providers Care Aircraft Metalsmith Name Role Phone Mimi Fernandez MD Primary Care Provider Encounter Details Date Type Department Care Team (Latest Contact Info) Description 05/05/2009 Outpatient Historical [facility] Roper, Jaya Tenorio MD NO ADDRESS ON FILE Cor Athrscl-Uns Vessel Social History Tobacco Use Types Packs/Day Years Used Date Smoking Tobacco: Never Alcohol Use Standard Drinks/Week Comments Yes 0 (1 standard drink = 0.6 oz pur e alcohol) Sex and Gender Information Value Date Recorded Sex Assigned at Not on file 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 CONTACT LENS 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 Gender Identity Not on file Sexual Orientation Not on file documented as of this encounter Plan of Treatment Upcoming Encounters Date Type Department Care Team (Late st Contact Info) Description 03/30/2025 9:00 AM CDT Office Visit [facility] Heart and Vascular - [facility] [address] [place] [address] [address] [place] [address] Valdez Frey MD [address] [facility] [address] [place] [address] 08/30/2025 11:30 AM CONTACT LENS FITTER Office Visit [facility] Internal Medicine - [place] [address] [facility] [address] [place] [address] [place] [address] [facility] [place] [address] documented as of this encounter Visit Diagnoses Diagnosis Coronary atherosclerosis of unspecified type of vessel, [place] or graft documented in this encounter Care Teams Aircraft Metalsmith Relationship Specialty [place] [address] [facility] [address] Gilberto Ayala [address] [address] PCP - General Internal Medicine 08/25/24 documented as of this encounter
--- OUTSIDE RECORDS SUMMARY | 2025-01-17 06:17 | XMS_ITS | Clinical Summary ---
Author Organization [facility] Address [address] [place] [address] Care Team Providers Care Counter Intelligence Name Role Phone Jaya Roper MD Primary Care Provider [phone] Source Comments [facility],non-owned Affiliates and Associated Physician Practices is amultiple site organization consisting of ambulatory clinics and hospital sitesin [place], [place], [place] and [place]. This disclosure is being madepursuant to the Care Everywhere program and may not contain all information available regarding this patient. Last updated [email or web address] Allergies No known active allergies Medications * Be aware that medications may not be up to date on this document. Alwaysverify current medications with the patient. clopidogrel (PLAVIX) 75 MG tablet Take 75 mg by mouth once daily. Active simvastatin (ZOCOR) 40 MG tablet Take 40 mg by mouth at bedtime. Active metoprolol succinate XL 24hr (TOPROL XL) 50 MG tablet Take 50 mg by mouth 2 times daily. Active fish oil/omega-3 fatty acids (PROMEGA;CARDI- OMEGA 3) 1000 MG capsule Take 1,000 mg by mouth 2 times daily with morning and evening meal. Active Flaxseed, Linseed, 1000 MG CAPS Take by mouth. Active niacin CR (NIASPAN) 500 MG tablet Take 500 mg by mouth at bedtime. Active ascorbic acid (VITAMIN C) 500 MG tablet Take 1,000 mg by mouth once daily. Active Cholecalciferol (VITAMIN D) 1000 UNITS capsule Take 1,000 Units by mouth once daily. Active multivitamin daily (THERAGRAN) tablet Take 1 Tab by mouth daily with food. Active aspirin EC (ECOTRIN) 81 MG tablet Take 81 mg by mouth once daily. Active Active Problems No known active problems Social History Tobacco Use Types Packs/Day Years Used Date Smoking Tobacco: Never Alcohol Use Standard Drinks/Week Comments Yes 5.8 (1 standard drink = 0.6 oz p ure alcohol) Sex and Gender Information Value Date Recorded Sex Assigned at Not on file Legal Sex Male 6:05 AM APPRENTICESHIP CONSULTANT Gender Identity Not on file Sexual Orientation Not on file Last Filed Vital Signs Vital Sign Reading Time Taken Comments Blood Pressure 144/84 03/22/2014 12:30 PM CDT Pulse 52 03/22/2014 12:30 PM CDT Temperature 36.4 C (97.5 F) 03/22/2014 12:20 PM CDT Respiratory Rate 20 03/22/2014 12:30 PM CDT Oxygen Saturation 100% 03/22/2014 12:30 PM CDT Inhaled Oxygen Concentration - - Weight 69.9 kg (154 lb) 03/21/2014 2:16 PM CDT Height 170.2 cm (5' 7 ) 03/21/2014 2:16 PM CDT Body Mass Index 24.12 03/21/2014 2:16 PM CDT Plan of Treatment Health Maintenance Due Date Last Done Comments HEPATITIS C SCREENING 06/10/1963 DTAP/TDAP/TD VACCINES (1 - Tdap) 1965 PNEUMOCOCCAL VACCINE 50+ (1 of 1 - PCV) 1996 ZOSTER VACCINE (1 of 2) 1996 Respiratory Syncytial Virus (RSV) Vaccine Pt: or over 60 yrs (1 - 1-dose 75+ series) 2021 COVID-19 VACCINE ( - 2023-2 5 season) 2024 DEPRESSION SCREENING 09/22/2024 INFLUENZA VACCINE (Season Ended) 2025 HEPATITIS B VACCINE Aged Out No longe r eligible based on patient's age to complete this topic HIB VACCINE Aged Out No longer eligi ble based on patient's age to complete this topic HPV VACCINE Aged Out No longer eligi ble based on patient's age to complete this topic MENINGOCOCCAL (Group B) VACC INE SHARED DECISION-MAKING Aged Out No longer eligibl e based on patient's age to complete this topic MENINGOCOCCAL GROUPS A/C/Y/W VACCINE Aged Out No longer eligible b ased on patient's age to complete this topic Insurance [facility] MEDIC[employer] Care Teams Counter Intelligence Relationship Specialty Start Date End Date Jaya Roper MD [address] [place] [id number] PCP - General Internal Medicine 03/18/14
--- OUTSIDE RECORDS SUMMARY | 2025-01-17 06:17 | XMS_ITS | Clinical Summary ---
Author Organization [facility] Address [address] [facility] [place] [address] Phone Care Team Providers Care Oil Deliverer Name Role Phone Mimi Fernandez MD Primary Care Provider [phone] Allergies Active Allergy Reactions Criticality Noted Date Comments No Known Allergies 05/06/2005 Medications Cholecalciferol , Vitamin D3, (VITAMIN D) 1,000 unit Oral Tab Take 1 Cap by mouth daily. 1 Tab 0 03/27/2009 Active docusate sodium (COLACE) 100 mg capsule Take 1 Capsule (100 mg) by mouth 2 times daily. 11/10/2022 Active flaxseed Oil 1,000 mg Capsule Take 1 Capsule (1,000 mg) by mouth daily. 03/24/2023 Active omega 2-ibc-hnj-fish oil 1,000 mg (250 mg-750 mg)/5 mL Liquid Take 1 Capsule by mouth 2 times daily. 03/24/2023 Active niacin (NIACOR) 500 mg tablet Take 500 mg by mouth daily. Active multivitamin (DAILY-BARBARA) tablet Take 1 Tablet by mouth daily. Active aspirin (ECOTRIN EC) 81 mg Tablet, Delayed Release (E.C.) Take 1 Tablet (81 mg) by mouth daily. 90 Tablet 3 09/10/2023 Active ketoconazole (NIZORAL) 2 % Cream Apply to affected area daily. 30 Gram 08/27/2024 Active ascorbic acid (VITAMIN C ORAL) Take by mouth. Active metoprolol succinate (TOPROL XL) 50 mg Extended Release 24 hour tablet Take 1 Tablet (50 mg) by mouth daily. 90 Tablet 3 09/29/2024 Active atorvastatin (LIPITOR) 80 mg tablet Take 1 Tablet (80 mg) by mouth daily. 100 Tablet 3 09/29/2024 Active Active Problems Patient Care Coordination No te Formatting of this note migh t be different from the original. Nailhead Setter - Dr. Mckenna (Long office) Valdez Frey MD- [facility] Heart & Vascular ( [facility]) Problem Noted Date Diagnosed Date Paroxysmal atrial fibrillation 09/29/2024 Callus of foot 08/25/2024 S/P CABG x 4 03/24/2023 Overview (03/24/2023): October 2022 White coat syndrome with hypertension 03/07/2021 Stable angina 03/04/2019 Benign hypertension 08/28/2018 Prediabetes 08/28/2018 Prostatic nodule 02/26/2018 Intrinsic eczema 08/27/2017 Mixed hyperlipidemia 10/12/2015 Coronary artery disease due to calcified coronar y lesion 01/22/2008 Overview (09/27/2009): Prox LAD stent Family history of osteoporosis 06/30/2007 Family history of Alzheimer's disease 06/30/2007 Overview (03/24/2023): Mother and 2 brothers Impotence of organic origin 05/03/2005 Status Post Angioplasty with BMStent mid LAD 01/21 008 Resolved Problems Problem Noted Date Diagnosed Date Resolved Date Paroxysmal atrial fibrillation 11/26/2022 08/25/2024 Overview (03/26/2023): Postop cardiac surgery. No recurrence. Syncope 02/25/2017 08/27/2017 HTN (hypertension) 03/05/2012 1 Unspecified disorder of sweat glands 06/30/2007 09/27/2009 Cough 01/19/2007 08/31/2009 Disturbance of salivary secretion 01/19/2007 08/31/2009 Other and unspecified hyperlipidemia 06/23/2006 10/12/2015 Loss of weight 06/23/2006 09/27/2009 Other seborrheic keratosis 06/23/2006 0 09/27/2009 Special screening for malign ant neoplasm of prostate 06/23/2006 03/01/2011 Inguinal hernia without ment ion of obstruction or gangrene, recurrent unilateral or unspecified 06/23/2006 09/27/2009 Routine general medical exam ination at a health care facility 05/06/2005 03/01/2011 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 1 11/01/2008 Cervicalgia 05/03/2005 08/31/2009 Headache(784.0) 05/03/2005 08/31/2009 Enthesopathy of knee, unspecified 05/03/2005 08/31/2009 Dizziness and giddiness 05/03/200508/22 Encounters Date Type Department Care Team Description 12/08/2024 External Device Data STL ABSTRACTION Provider, Abstract 11/30/2024 External Device Data STL ABSTRACTION Provider, Abstract 11/30/2024 External Device Data STL ABSTRACTION Provider, Abstract 11/27/2024 External Device Data STL ABSTRACTION Provider, Abstract 11/26/2024 External Device Data STL ABSTRACTION Provider, Abstract 11/24/2024 External Device Data STL ABSTRACTION Provider, Abstract 10/25/2024 Results Follow-Up [facility] [address] [facility] [address] [place] [address] Álvaro Sharma, PATHOLOGY from Last 3 Months Immunizations Immunization Administration Dates Next Due (ADACEL/BOOSTRIX)(10 YR UP) TDAP VACCINE, 0.5ML, IM 09/26/2008 (PFIZER)(12 YR UP) COVID-19 VACCINE - EMERGENCY USE AUTHORIZATION, MRNA, [id number](PF) 30 MCG/0.3 ML IM SUSP 01/07/2022,07/06/2021,12/10/2020,11/17 (PNEUMOVAX 23)(50 YRS UP) PN EUMOCOCCAL POLYSACCHARIDE (PPV23) 0.5 ML, IM 02/21/2012 (PREVNAR 20)(6 WKS UP) PNEUM OCOCCAL CONJUGATE VACCINE 20-VALENT (PCV20), POLYSACCHARIDE [id number] CONJUGATE, ADJUVANT 0.5 ML (PF) IM 03/12/2022 (SHINGRIX)(50 YRS UP) ZOSTER VACCINE RECOMBINANT, 0.5 ML, IM 07/03/2020,04/19/2020 (TENIVAC)(7 YRS UP) TETANUS AND DIPHTHERIA TOXOIDS, ADSORBED (5 LF OF TETANUS TOXOID AND 2 LF OF DIPHTHERIA TOXOID), 0.5ML (PF), IM 03/06/2020 INFLUENZA VACCINE HIGH DOSE QUADRIVALENT 65 YR UP PF IM 06/10/2020 Influenza Seasonal Unspecifi ed Formulation IM 07/29/2018 Influenza Vaccine High Dose 65+ Yrs IM 0,09/04/2019,07/28/2018 Family History Medical History Relation Name Comments Alzheimer's Disease Brother 1 Francisco dementia Healthy Brother 1 Francisco Other Brother 2 Devon brother alzheimers Prostate Cancer Brother 2 Devon brother prostate Alzheimer's Disease Brother 3 Devon dementia Alzheimer's Disease Maternal Aunt Alzheimer's Disease Maternal Grandmother Montez dementia Alzheimer's Disease Maternal Uncle Alzheimer's Disease Mother Karena dementia Hypertension Mother Karena Colon Cancer Neg Hx Relation Name Status Comments Brother 1 Francisco Brother 2 Devon brother Alive Brother 3 Devon Father Maternal Aunt Maternal Grandmother Montez Maternal Uncle Mother Karena Sister Alive Social History Tobacco Use Types Packs/Day Years Used Date Smoking Tobacco: Never Smokeless Tobacco: Never Tobacco Cessation:Counseling Given: Not Answered Alcohol Use Standard Drinks/Week Comments Yes 6 (1 standard drink = 0.6 oz pur e alcohol) Socially Feeling Safe Answer Date Recorded Are you in a relationship wi th someone who hurts you emotionally and/or physically? No 10/13/2024 Sex and Gender Information Value Date Recorded Sex Assigned at Not on file 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 SOLVENT PLANT TREATER Gender Identity Not on file Sexual Orientation Not on file Occupation Industry Job Start Date Job End Date Not on file Not on file Not on file Not on file Last Filed Vital Signs Vital Sign Reading Time Taken Comments Blood Pressure 133/60 10/13/2024 11:59 AM SOLVENT PLANT TREATER Pulse 47 10/13/2024 11:59 AM SOLVENT PLANT TREATER Temperature 36.1 C (97 F) 10/13/2024 11:41 AM SOLVENT PLANT TREATER Respiratory Rate 16 10/13/2024 11:59 AM SOLVENT PLANT TREATER Oxygen Saturation 98% 10/13/2024 11:59 AM SOLVENT PLANT TREATER Inhaled Oxygen Concentration - - Weight 71.5 kg (157 lb 9.6 oz) 10/13/2024 10:03 AM SOLVENT PLANT TREATER Height 170.2 cm (5' 7 ) 10/13/2024 10:03 AM SOLVENT PLANT TREATER Body Mass Index 24.68 10/13/2024 10:03 AM SOLVENT PLANT TREATER Plan of Treatment Upcoming Encounters Date Type Department Care Team (Late st Contact Info) Description 03/30/2025 9:00 AM CDT Office Visit [facility] Heart and Vascular - [facility] [address] [facility] [address] [place] [address] Valdez Frey MD [address] [facility] [address] [place] [address] 08/30/2025 11:30 AM SOLVENT PLANT TREATER Office Visit [facility] Internal Medicine - [place] [address] [facility] [address] [facility] [place] [address] [place] [address] [facility] [address] [place] [address] Health Maintenance Due Date Last Done Comments RSV VACCINE (60+ or ) (1 - 1-dose 75+ series) 2021 INFLUENZA VACCINE (#1) 2024 , 06/26/2020, 06/10/2020, Additional history exists COVID-19 Vaccine (2023-2 5 season) 2024 01/07/2022, 07/06/2021, 12/10/2020, Additional history exists DTAP/TDAP/TD VACCINES (3 - T d or Tdap) 03/06/2030 03/06/2020, 09/26/2008 ZOSTER VACCINE Completed 07/03/2020, 04/19/2020 PNEUMOCOCCAL VACCINE 50+ YEARS Completed 03/12/2022 , 02/21/2012 COLORECTAL SCREENING Discontinued 10/13/2024, 10/13/2024, 03/22/2014, Additional history exists Colorectal Cancer Screening Discontinued FIT-DNA Q 3 years Discontinued FIT/FOBT Q 1 year Discontinued Flex Sig/CT Colonography Q 5 years Discontinued Medical Devices Implanted Type Area Horse Stud Manager Device Identifier Shelf Expiration Date Model / Serial / Lot Marketing Researcher Clip Surgiclip Ii Adam 9.75in [id number] - [id number] Implanted:Qty : 1 on 11/04/2022 by Brooklynn Crenshaw MD at [facility] Clip Right: Leg MEDTRONIC - COVIDIEN [id number] 07/22/2027 [id number] / / [id number] Clip Ligating Horizon Med Ti [id number] - Csc - [id number] Implanted:Qty : 1 on 11/04/2022 by Brooklynn Crenshaw MD at [facility] Clip N/A: Chest TELEFLEX- WECK CLOSURE SYS [id number] 06/24/2027 / / [id number] Clip Ligating Horizon Sm Ti [id number] - Csc - [id number] Implanted:Qty : 8 on 11/04/2022 by Brooklynn Crenshaw MD at [facility] Clip N/A: Chest TELEFLEX INC 07/14/2027 / / [id number] Hemostat Surg Snow 2x4in 2081 [id number] Implanted:Qty : 1 on 11/04/2022 by Brooklynn Crenshaw MD at [facility] Hemostatic N/A: Chest J[employer]J- [employer] [id number] 02/20/2024 208 / / [id number] Marker Anastomark Cabg Slcn Fm-Pm-1 - [id number] Implanted:Qty : 3 on 11/04/2022 by Brooklynn Crenshaw MD at [facility] Other N/A: Aorta [employer] 01/19/2025 FM-PM-1 / / [id number] Cardiac Stent X1 Procedures Procedure Name Priority Date/Time Associated Diagnosis Comments COLONOSCOPY REPORT 10/13/2024 11 :37 AM SOLVENT PLANT TREATER from Last 3 Months or Most Recently Relevant to Health Maintenance Results * COLONOSCOPY REPORT (10/13/2024 11:37 AM SOLVENT PLANT TREATER) Narrative Procedure Note Álvaro Sharma DO - 10/13/2024 11:37 AM CST [facility] Endoscopy Patient Name: Cameron Liu Procedure Date: 10/13/2024 Date of : 1945 Attending MD: Álvaro Sharma DO, Procedure: Colonoscopy Indications: Screening for colorectal malignant neoplasm Providers: Álvaro Sharma DO Referring MD: Mimi Fernandez Medicines: Monitored Anesthesia Care Complications: No immediate complications. Procedure: Informed consent was obtained for the procedure, including moderate sedation after risks were discussed. Based on the pre-procedure assessment, including review of the patient's medical history, medications, allergies, and review of systems, the patient was deemed to be an appropriate candidate for sedation. A timeout was performed. Continuous ECG monitoring, pulse oximetry, blood pressure monitoring, and direct observation were performed. The Colonoscope was introduced through the anus and advanced to the cecum, identified by the appendiceal orifice, ileocecal valve and palpation. The colonoscopy was performed without difficulty. The patient tolerated the procedure well. The quality of the bowel preparation was adequate. Estimated Blood Loss: Estimated blood loss: none. Findings: The perianal and digital rectal examinations were normal. Multiple medium-mouthed and small-mouthed diverticula were found in the sigmoid colon. Two semi-pedunculated polyps were found in the sigmoid colon. The polyps were 3 to 4 mm in size. These polyps were removed with a cold snare. Resection and retrieval were complete. Estimated blood loss: none. The exam was otherwise without abnormality. Impression: - Diverticulosis in the sigmoid colon. - Two 3 to 4 mm polyps in the sigmoid colon, removed with a cold snare. Resected and retrieved. - The examination was otherwise normal. Recommendation: - Await pathology results. - Repeat colonoscopy in 10 years for surveillance. Álvaro Sharma DO 10/13/2024 11:37:32 AM This report has been signed electronically. Number of Addenda: [address]; [place] [address] Álvaro Sharma DO GI PROCEDURE ORDERABLES Rissa l Result from Last 3 Months or Most Recently Relevant to Health Maintenance Insurance MEDICARE PART A HOSPITAL ONLY [facility] Advance Directives For more information, please contact: [phone] Documents on File Type Date Recorded Patient Shingle Catcher Expl anation Advance Directive Living Will 05/06/2013 1:13 PM Advance Directive POA 12/23/2012 8:58 AM Ad torres Directive POA * Full Code (Latest Code Status on File) Date Activated Date Inactivated Comments 10/13/2024 10:07 AM 10/13/2024 2:36 PM * Full Code Date Activated Date Inactivated Comments 08/25/2024 12:46 PM 10/13/2024 9:28 AM * Full Code Date Activated Date Inactivated Comments 11/04/2022 4:08 PM 11/10/2022 3:04 PM * Full Code Date Activated Date Inactivated Comments 11/04/2022 10:02 AM 11/04/2022 4:07 PM * Full Code Date Activated Date Inactivated Comments 10/18/2022 7:18 AM 10/18/2022 3:59 PM Care Teams Oil Deliverer Relationship Specialty [place] [address] [facility] [address] [id number] PCP - General Internal Medicine 08/25/24
--- OUTSIDE RECORDS SUMMARY | 2025-01-17 06:17 | XMS_ITS | Encounter Summary ---
Author Organization [facility] Address [address] [place] [address] Care Team Providers Care Shank Tapper Name Role Phone Mimi Fernandez MD Primary Care Provider [phone] Encounter Details Date Type Department Care Team (Latest Contact Info) Description 06/30/2007 Outpatient Historical [facility] Primary Care - [facility] [address] [place] [address] [address] [place] [address] Jaya Roper MD NO ADDRESS ON FILE Other and Unspecified Hyperlipidemia (Primary Dx) Social History Tobacco Use Types Packs/Day Years Used Date Smoking Tobacco: Never Assessed Sex and Gender Information Value Date Recorded Sex Assigned at Not on file 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 GENERAL DENTIST Gender Identity Not on file Sexual Orientation Not on file documented as of this encounter Plan of Treatment Upcoming Encounters Date Type Department Care Team (Late st Contact Info) Description 03/30/2025 9:00 AM CDT Office Visit [facility] Heart and Vascular - [facility] [address] [facility] [address] [place] [address] Valdez Frey MD [address] [facility] [address] [place] [address] 08/30/2025 11:30 AM GENERAL DENTIST Office Visit [facility] Internal Medicine - [place] [address] [facility] [address] [place] [address] [place] [address] [facility] [address] [place] [address] documented as of this encounter Procedures Procedure Name Priority Date/Time Associated Diagnosis Comments TSH WITH REFLEX FT4 AND FT3 Routine 06/30/2007 5:59 PM CDT PSA Routine 06/30/2007 5:59 PM CDT GLUCOSE LEVEL Routine 06/30/2007 5:59 PM CDT LIPID PANEL Routine 06/30/2007 5:59 PM CDT documented in this encounter Results * TSH WITH REFLEX FT4 AND FT3 (06/30/2007 5:59 PM CDT) TSH 3.98 0.27 - 4.20 uU/mL INTERFACE SYSTEM 06/30/2007 5:59 PM CDT us Jaya Roper MD CHEMISTRY ORDERABLES Edited INTERFACE SYSTEM Refer to clinic/hospital department * GLUCOSE LEVEL (06/30/2007 5:59 PM CDT) GLUCOSE 91 65 - 99 mg/dL INTERFACE SYSTEM 06/30/2007 5:59 PM CDT us Jaya Roper MD CHEMISTRY ORDERABLES Edited INTERFACE SYSTEM Refer to clinic/hospital department * (ABNORMAL) LIPID PANEL (06/30/2007 5:59 PM CDT) CHOLESTEROL 254(H) 100 - 199 mg/dL INTERFACE SYSTEM TRIGLYCERIDE 251(H) 10 - 149 mg/dL INTERFACE SYSTEM HDL 46 40 - 59 mg/dL INTERFACE SYSTEM CHOL/HDL RATIO 5.5(H) 2.0 - 5.0 INTER FACE SYSTEM LDL CALCULATED 158(H) <=99 mg/dL INTERFACE SYSTEM LIPID PANEL COMMENT See Below INTERFACE SYSTEM Comment: The adult ATP and pediatric NCEP classifications for lipids are available on the [facility] Intranet at: [email or web address] Select: Lab Policies and Procedures,Current Select: Lipid Panel Interpretation 06/30/2007 5:59 PM CDT us Jaya Roper MD CHEMISTRY ORDERABLES Edited Performing Organization Address City/[facility]/ZIP Co de Phone Number INTERFACE SYSTEM Refer to clinic/hospital department * PSA (06/30/2007 5:59 PM CDT) PSA 1.4 0.0 - 4.0 ng/mL INTERFACE SYSTEM Comment:Performed on [employer] E170 System 06/30/2007 5:59 PM CDT us Jaya Roper MD CHEMISTRY ORDERABLES Edited Performing Organization Address City/[facility] Co de Phone Number INTERFACE SYSTEM Refer to clinic/hospital department documented in this encounter Visit Diagnoses Diagnosis Other and unspecified hyperlipidemia- Primary documented in this encounter Care Teams Shank Tapper Relationship Specialty [place] [address] Gilberto Ayala [facility] [address] [place] [address] PCP - General Internal Medicine 08/25/24 documented as of this encounter
--- OUTSIDE RECORDS SUMMARY | 2025-01-17 06:17 | XMS_ITS | Encounter Summary ---
Author Organization [facility] Address [address] [place] [address] Care Team Providers Care Blade Aligner Name Role Phone Mimi Fernandez MD Primary Care Provider [phone] Encounter Details Date Type Department Care Team (Late st Contact Info) Description 01/20/2008 Outpatient Historical [facility] Primary Care - [facility] [address] [place] [address] [address] [place] [address] Jaya Roper MD NO ADDRESS ON FILE Social History Tobacco Use Types Packs/Day Years Used Date Smoking Tobacco: Never Assessed Sex and Gender Information Value Date Recorded Sex Assigned at Not on file 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 TURN SEWER Gender Identity Not on file Sexual Orientation Not on file documented as of this encounter Plan of Treatment Upcoming Encounters Date Type Department Care Team (Late st Contact Info) Description 03/30/2025 9:00 AM CDT Office Visit [facility] Heart and Vascular - [facility] [address] [facility] [address] [place] [address] Valdez Frey MD [address] [facility] [address] [place] [address] 08/30/2025 11:30 AM TURN SEWER Office Visit [facility] Internal Medicine - [place] [address] [facility] [address] [place] [address] [place] [address] [facility] [address] [place] [address] documented as of this encounter Visit Diagnoses Not on filedocumented in this encounter Care Teams Blade Aligner Relationship Specialty [place] [address] [facility] [address] Gilberto Ayala [address] [address] PCP - General Internal Medicine 08/25/24 documented as of this encounter
--- OUTSIDE RECORDS SUMMARY | 2025-01-17 06:17 | XMS_ITS | Encounter Summary ---
Author Organization [facility] Address [address] [place] [address] Care Team Providers Care Health Science Writer Name Role Phone Mimi Fernandez MD Primary Care Provider [phone] Encounter Details Date Type Department Care Team (Late st Contact Info) Description 06/30/2007 Outpatient Historical [facility] Primary Care - [facility] [address] [place] [address] [address] [place] [address] Jaya Roper MD NO ADDRESS ON FILE Social History Tobacco Use Types Packs/Day Years Used Date Smoking Tobacco: Never Assessed Sex and Gender Information Value Date Recorded Sex Assigned at Not on file 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 SUSTAINABLE DESIGN CONSULTANT Gender Identity Not on file Sexual Orientation Not on file documented as of this encounter Plan of Treatment Upcoming Encounters Date Type Department Care Team (Late st Contact Info) Description 03/30/2025 9:00 AM CDT Office Visit [facility] Heart and Vascular - [facility] [address] [facility] [address] [place] [address] Valdez Frey MD [address] [facility] [address] [place] [address] 08/30/2025 11:30 AM SUSTAINABLE DESIGN CONSULTANT Office Visit [facility] Internal Medicine - [place] [address] [facility] [address] [place] [address] [place] [address] [facility] [address] [place] [address] documented as of this encounter Visit Diagnoses Not on filedocumented in this encounter Care Teams Health Science Writer Relationship Specialty [place] [address] [facility] [address] Gilberto Ayala [address] [address] PCP - General Internal Medicine 08/25/24 documented as of this encounter
--- OUTSIDE RECORDS SUMMARY | 2025-01-17 06:17 | XMS_ITS | Encounter Summary ---
Author Organization [facility] Address [address] [place] [address] Care Team Providers Care Kiln Charger Name Role Phone Mimi Fernandez MD Primary Care Provider [phone] Encounter Details Date Type Department Care Team (Latest Contact Info) Description 10/08/2007 Outpatient Historical [facility] Primary Care - [facility] [address] [place] [address] [address] [place] [address] Jaya Roper MD NO ADDRESS ON FILE Family History of Osteoporosis Social History Tobacco Use Types Packs/Day Years Used Date Smoking Tobacco: Never Assessed Sex and Gender Information Value Date Recorded Sex Assigned at Not on file 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 DEMAND EQUIPMENT REPAIRER Gender Identity Not on file Sexual Orientation Not on file documented as of this encounter Plan of Treatment Upcoming Encounters Date Type Department Care Team (Late st Contact Info) Description 03/30/2025 9:00 AM CDT Office Visit [facility] Heart and Vascular - [facility] [address] [place] [address] [address] [place] [address] Valdez Frey MD [address] [facility] [address] [place] [address] 08/30/2025 11:30 AM DEMAND EQUIPMENT REPAIRER Office Visit [facility] Internal Medicine - [place] [address] [facility] [address] [place] [address] [place] [address] [facility] [address] [place] [address] documented as of this encounter Procedures Procedure Name Priority Date/Time Associated Diagnosis Comments CBC WITH DIFFERENTIAL Routine 10/08/2007 8:44 AM DEMAND EQUIPMENT REPAIRER CBC WITH DIFFERENTIAL Routine 10/08/2007 8:44 AM DEMAND EQUIPMENT REPAIRER VITAMIN D 25 HYDROXY Routine 10/08/2007 8:44 AM DEMAND EQUIPMENT REPAIRER TSH Routine 10/08/2007 8:44 AM DEMAND EQUIPMENT REPAIRER CREATININE Routine 10/08/2007 8:44 AM DEMAND EQUIPMENT REPAIRER CALCIUM LEVEL Routine 10/08/2007 8:44 AM DEMAND EQUIPMENT REPAIRER LIPID PANEL Routine 10/08/2007 8:44 AM DEMAND EQUIPMENT REPAIRER documented in this encounter Results * CBC WITH DIFFERENTIAL (10/08/2007 8:44 AM DEMAND EQUIPMENT REPAIRER) NEUTROPHILS 63 45 - 70 % INTERFAC E SYSTEM LYMPHOCYTES 29 16 - 45 % INTERFAC E SYSTEM MONOCYTES 6 3 - 13 % INTERFACE SYSTEM EOSINOPHILS 2 0 - 7 % INTERFAC E SYSTEM BASOPHILS 0 0 - 2 % INTERFACE SYSTEM NEUTROPHIL ABSOLUTE 3.04 1.90 - 7.00 K/uL INTERFACE SYSTEM LYMPHOCYTE ABSOLUTE 1.40 0.70 - 4.50 K/uL INTERFACE SYSTEM MONOCYTE ABSOLUTE 0.29 0.10 - 1.30 K/uL INTERFACE SYSTEM EOSINOPHIL ABSOLUTE 0.07 0.00 - 0.70 K/uL INTERFACE SYSTEM BASOPHILS ABSOLUTE 0.02 0.00 - 0.20 K/uL INTERFACE SYSTEM 10/08/2007 8:44 AM DEMAND EQUIPMENT REPAIRER us Jaya Roper MD HEMATOLOGY ORDERABLES Edited INTERFACE SYSTEM Refer to clinic/hospital department * CBC WITH DIFFERENTIAL (10/08/2007 8:44 AM DEMAND EQUIPMENT REPAIRER) WBC 4.8 4.0 - 9.8 K/uL INTERFACE SYSTEM RBC 5.06 4.50 - 5.40 M/uL INTERFACE SYSTEM HEMOGLOBIN 15.0 13.6 - 16.5 g/dL INTERFACE SYSTEM HEMATOCRIT 45.0 40.0 - 48.0 % INTERFACE SYSTEM MCV 88.9 82.0 - 99.0 fL INTERFACE SYSTEM MCH 29.6 27.2 - 32.6 pg INTERFACE SYSTEM MCHC 33.3 31.5 - 35.5 % INTERFACE SYSTEM RDW 12.7 11.5 - 14.5 % INTERFACE SYSTEM RDW-STDEV 40.7 37.1 - 48.7 fL INTERFACE SYSTEM PLATELETS 228 140 - 350 K/uL INTERFACE SYSTEM MPV 10.3 9.3 - 12.4 fL INTERFACE SYSTEM 10/08/2007 8:44 AM DEMAND EQUIPMENT REPAIRER us Jaya Roper MD HEMATOLOGY ORDERABLES Edited Performing Organization Address City/[facility] Co de Phone Number INTERFACE SYSTEM Refer to clinic/hospital department * (ABNORMAL) LIPID PANEL (10/08/2007 8:44 AM DEMAND EQUIPMENT REPAIRER) CHOLESTEROL 222(H) 100 - 199 mg/dL INTERFACE SYSTEM TRIGLYCERIDE 225(H) 10 - 149 mg/dL INTERFACE SYSTEM HDL 44 40 - 59 mg/dL INTERFACE SYSTEM CHOL/HDL RATIO 5.0 2.0 - 5.0 INTER FACE SYSTEM LDL CALCULATED 133(H) <=99 mg/dL INTERFACE SYSTEM LIPID PANEL COMMENT See Below INTERFACE SYSTEM Comment: The adult ATP and pediatric NCEP classifications for lipids are available on the [facility] Intranet at: [email or web address] Select: Lab Policies and Procedures,Current Select: Lipid Panel Interpretation 10/08/2007 8:44 AM DEMAND EQUIPMENT REPAIRER us Jaya Roper MD CHEMISTRY ORDERABLES Edited INTERFACE SYSTEM Refer to clinic/hospital department * CREATININE (10/08/2007 8:44 AM DEMAND EQUIPMENT REPAIRER) CREATININE 0.91 0.67 - 1.17 mg/dL INTERFACE SYSTEM GFR, >60 >=60 mL/min/1.7 sq meter INTERFACE SYSTEM GFR >60 >=60 mL/min/1.7 sq meter INTERFACE SYSTEM Comment: Estimated GFR rate interpretative information for both Americans and non- Americans is available on the [facility] Intranet at: [email or web address] Select: Lab Policies and Procedures Select: Reference Ranges - GFR 10/08/2007 8:44 AM DEMAND EQUIPMENT REPAIRER us Jaya Roper MD CHEMISTRY ORDERABLES Edited Performing Organization Address City/State/[facility] Co de Phone Number INTERFACE SYSTEM Refer to clinic/hospital department * CALCIUM LEVEL (10/08/2007 8:44 AM DEMAND EQUIPMENT REPAIRER) CALCIUM 8.9 8.4 - 10.2 mg/dL INTERFACE SYSTEM 10/08/2007 8:44 AM DEMAND EQUIPMENT REPAIRER us Jaya Roper MD CHEMISTRY ORDERABLES Edited Performing Organization Address City/[facility] Co de Phone Number INTERFACE SYSTEM Refer to clinic/hospital department * TSH (10/08/2007 8:44 AM DEMAND EQUIPMENT REPAIRER) TSH 3.01 0.27 - 4.20 uU/mL INTERFACE SYSTEM 10/08/2007 8:44 AM DEMAND EQUIPMENT REPAIRER us Jaya Roper MD CHEMISTRY ORDERABLES Edited Performing Organization Address City/[facility] Co de Phone Number INTERFACE SYSTEM Refer to clinic/hospital department * VITAMIN D 25 HYDROXY (10/08/2007 8:44 AM DEMAND EQUIPMENT REPAIRER) VITAMIN D, 25 OH, TOTAL 22 20 - 100 ng/mL INTERFACE SYSTEM VITAMIN D, 25 OH, D3 10 ng/mL INTERFACE SYSTEM VITAMIN D, 25 OH, D2 12 ng/mL INTERFACE SYSTEM Comment: 25-OHD3 indicates both endogenous production and supplementation. 25-OHD2 is an indicator of exogenous sources such as diet or supplementation. Therapy is based on measurement of Total 25-OHD, with levels <20 ng/mL indicative of Vitamin D deficiency while levels between 20 ng/mL and 30 ng/mL suggest insufficiency. Optimal levels are >30 ng/mL. Lab test performed by: [facility] [id number] [place], [place] MEI MARTINEZ MD 10/08/2007 8:44 AM DEMAND EQUIPMENT REPAIRER us Jaya Roper MD CHEMISTRY ORDERABLES Edited INTERFACE SYSTEM Refer to clinic/hospital department documented in this encounter Visit Diagnoses Diagnosis Family history of osteoporosis documented in this encounter Care Teams Kiln Charger Relationship Specialty [place] [address] Gilberto Ayala [address] [address] PCP - General Internal Medicine 08/25/24 documented as of this encounter
--- OUTSIDE RECORDS SUMMARY | 2025-01-17 06:17 | XMS_ITS | Encounter Summary ---
Author Organization [facility] Address [address] [place] [address] Care Team Providers Care Film Composer Name Role Phone Mimi Fernandez MD Primary Care Provider Encounter Details Date Type Department Care Team (Latest Contact Info) Description 09/09/2007 [facility] NO ADDR[facility] ON FILE Family History of Osteoporosis Social History Tobacco Use Types Packs/Day Years Used Date Smoking Tobacco: Never Assessed Sex and Gender Information Value Date Recorded Sex Assigned at Not on file 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 CHILD CARE LEADER Gender Identity Not on file Sexual Orientation Not on file documented as of this encounter Plan of Treatment Upcoming Encounters Date Type Department Care Team (Late st Contact Info) Description 03/30/2025 9:00 AM CDT Office Visit [facility] Heart and Vascular - [facility] [address] [facility] [address] [place] [address] Valdez Frey MD [address] [facility] [address] [place] [address] 08/30/2025 11:30 AM CHILD CARE LEADER Office Visit [facility] Internal Medicine - [place] [address] [facility] [address] [place] [address] [place] [address] [address] documented as of this encounter Visit Diagnoses Diagnosis Family history of osteoporosis documented in this encounter Care Teams Film Composer Relationship Specialty [place] [address] [facility] [address] [place] [address] [address] PCP - General Internal Medicine 08/25/24 documented as of this encounter
--- OUTSIDE RECORDS SUMMARY | 2025-01-17 06:17 | XMS_ITS | Encounter Summary ---
Author Organization [facility] Address [address] [place] [address] Care Team Providers Care Windmill Technician Name Role Phone Mimi Fernandez MD Primary Care Provider Encounter Details Date Type Department Care Team (Late st Contact Info) Description 01/20/2008 Outpatient Historical [facility] Primary Care - [facility] [address] [place] [address] [address] [place] [address] Jaya Roper MD NO ADDRESS ON FILE Social History Tobacco Use Types Packs/Day Years Used Date Smoking Tobacco: Never Assessed Sex and Gender Information Value Date Recorded Sex Assigned at Not on file 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 MANAGEMENT 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 Gender Identity Not on file Sexual Orientation Not on file documented as of this encounter Plan of Treatment Upcoming Encounters Date Type Department Care Team (Late st Contact Info) Description 03/30/2025 9:00 AM CDT Office Visit [facility] Heart and Vascular - [facility] [address] [facility] [address] [place] [address] Valdez Frey MD [address] [facility] [address] [place] [address] 08/30/2025 11:30 AM SPORTS MANAGEMENT PROFESSOR Office Visit [facility] Internal Medicine - [place] [address] [facility] [address] [place] [address] [place] [address] [facility] [address] [place] [address] documented as of this encounter Visit Diagnoses Not on filedocumented in this encounter Care Teams Windmill Technician Relationship Specialty [place] [address] [facility] [address] Gilberto Ayala [address] [address] PCP - General Internal Medicine 08/25/24 documented as of this encounter
--- OUTSIDE RECORDS SUMMARY | 2025-01-17 06:17 | XMS_ITS | Encounter Summary ---
Author Organization [facility] Address [address] [place] [address] Care Team Providers Care Security System Analyst Name Role Phone Mimi Fernandez MD Primary Care Provider Encounter Details Date Type Department Care Team (Latest Contact Info) Description 03/27/2009 Outpatient Historical [facility], [address] Jaya Roper MD NO ADDRESS ON FILE Other and Unspecified Hyperlipidemia Social History Tobacco Use Types Packs/Day Years Used Date Smoking Tobacco: Never Alcohol Use Standard Drinks/Week Comments Yes 0 (1 standard drink = 0.6 oz pur e alcohol) Sex and Gender Information Value Date Recorded Sex Assigned at Not on file 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 VOLLEYBALL ASSEMBLER Gender Identity Not on file Sexual Orientation Not on file documented as of this encounter Plan of Treatment Upcoming Encounters Date Type Department Care Team (Late st Contact Info) Description 03/30/2025 9:00 AM CDT Office Visit [facility] Heart and Vascular - [facility] [address] [place] [address] [address] [place] [address] Valdez Frey MD [address] [facility] [address] [place] [address] 08/30/2025 11:30 AM VOLLEYBALL ASSEMBLER Office Visit [facility] Internal Medicine - [place] [address] [facility] [address] [place] [address] [place] [address] [facility] [place] [address] documented as of this encounter Visit Diagnoses Diagnosis Other and unspecified hyperlipidemia documented in this encounter Care Teams Security System Analyst Relationship Specialty [place] [address] [facility] [address] Gilberto Ayala [address] [address] PCP - General Internal Medicine 08/25/24 documented as of this encounter
--- OUTSIDE RECORDS SUMMARY | 2025-01-17 06:17 | XMS_ITS | Encounter Summary ---
Author Organization [facility] Address [address] [place] [address] Care Team Providers Care Appliance Assembler Name Role Phone Mimi Fernandez MD Primary Care Provider [phone] Encounter Details Date Type Department Care Team (Late st Contact Info) Description 10/08/2007 Outpatient Historical [facility] Primary Care - [facility] [address] [place] [address] [address] [place] [address] Other, [facility] NO ADDRESS ON FILE Social History Tobacco Use Types Packs/Day Years Used Date Smoking Tobacco: Never Assessed Sex and Gender Information Value Date Recorded Sex Assigned at Not on file 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 Gender Identity Not on file Sexual Orientation Not on file documented as of this encounter Plan of Treatment Upcoming Encounters Date Type Department Care Team (Late st Contact Info) Description 03/30/2025 9:00 AM CDT Office Visit [facility] Heart and Vascular - [facility] [address] [facility] [address] [place] [address] Valdez Frey MD [address] [facility] [address] [place] [address] 08/30/2025 11:30 AM TRUCK 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 Office Visit [facility] Internal Medicine - [place] [address] [facility] [address] [place] [address] [place] [address] [facility] [address] Gilberto DesouzaUNM [facility] [address] [place] [address] documented as of this encounter Visit Diagnoses Not on filedocumented in this encounter Care Teams Appliance Assembler Relationship Specialty [place] [address] [facility] [address] Gilberto Ayala [address] [address] PCP - General Internal Medicine 08/25/24 documented as of this encounter
[2025-01-17 06:43] LABS: Basophils Percent Auto 0.4 % (0.2-1.2); Eosinophils Absolute Auto 0.1 K/mm3 (0-0.3); Eosinophils Percent Auto 1.1 % (0-4.4); Hematocrit 33.6 % (42.0-52.0); Hemoglobin 10.4 g/dL (14.0-18.0); Immature Granulocyte Absolute 0.05 K/mm3 (0.00-0.031); Immature Granulocyte Percent A 0.5 % (0-0.5); Lymphocytes Absolute Auto 0.95 K/mm3 (0.9-3.2); Lymphocytes Percent Auto 9.1 % (18.3-44.2); Mean Corpuscular Hemoglobin 26.3 pg (26-34); Mean Corpuscular Volume 85.1 fl (80-100); Monocytes Absolute Auto 1.1 K/mm3 (0.1-0.6); Monocytes Percent Auto 10.3 % (2.6-8.5); Neutrophils Absolute Auto 8.2 K/mm3 (1.3-6.7); Neutrophils Percent Auto 78.6 % (45.5-73.1); Platelet Count Result 216 k/mm3 (150-375); Red Blood Count 3.95 M/mm3 (4.6-6.20); Red Cell Distribution Width 15.6 % (11.5-14.5); White Blood Count 10.5 K/mm3 (4.5-10.0)
[2025-01-17 06:53] LABS: Alanine Aminotransferase 24 U/L (6-50); Albumin Level 4.3 g/dL (3.5-5.1); Alkaline Phosphatase 70 U/L (38-126); Anion Gap 8 mmol/L (4-12); Aspartate Amino Transferase 33 U/L (17-59); Bilirubin,Total 0.7 mg/dL (0.2-1.3); Blood Urea Nitrogen 18 mg/dL (9-20); Calcium 9.4 mg/dL (8.4-10.2); Carbon Dioxide 26 mmol/L (22-30); Chloride 100 mmol/L (98-107); Estimated CRCL calculation 51 ml/min; Estimated Glomerular Filt Rate > 60; Glucose 117 mg/dL (65-110); Lipase 63 U/L (23-300); Potassium 4.5 mmol/L (3.4-5.0); Sodium 134 mmol/L (137-145)
[2025-01-17 07:01] LABS: Add Urine Microscopic? NO; Appearance Urine Clear (Clear); Bilirubin Urine Negative (Negative); Blood Urine Negative (Negative); Color Urine Yellow (Yellow); Glucose Urine UA Negative (Negative); Ketones Urine Negative (Negative); Leukocyte Esterase Ur Negative LEU/UL (Negative); Nitrate Urine Negative (Negative); Protein Urine Negative (Negative); Specific Grav Ur 1.017 (1.001-1.035); Urobilinogen Urine 0.2 mg/dL (<2.0)
--- NOTE | 2025-01-17 07:21 | ECG_ITS ---
Test Date: 2025-01-17 09:12:55 Measurements Intervals [place] Rate: 59 P: 55 MN: 172 QRS: 38 QRSD: 88 T: 59 QT: 393 QTc: 390 Interpretive Statements SINUS BRADYCARDIA BORDERLINE ECG No previous ECG available for comparison Electronically Signed On 01-17-2025 09:15:47 CDT by Kulwant Virk D.O.
--- NOTE | 2025-01-17 08:03 | PC.NURSE ---
Assumed care of pt. Pt assessment unchanged. Warm blanket given
[2025-01-17] MEDS: KETOROLAC 15 MG/ML VIAL (*BKC) IV PUSH (08:06)
--- NOTE | 2025-01-17 08:13 | ED_ITS ---
HPI - General Adult General Chief complaint: Abdominal Pain Stated complaint: left side abdominal pain Time Seen by Provider: 01/17/25 07:02 History of Present Illness HPI narrative: Patient is a 79-year-old male with history of cardiac disease who presents ER with left-sided abdominal pain. Reports it is very lateral and worse with direct palpation and some movements. No urinary or GI symptoms. No fevers or chills or sweats. Sudden onset early this morning. Has some mild cramping also in his left chest wall that then moved down to that left side of his abdomen. No exertional discomfort. Denies fevers or chills or sweats. Reports he was active over the weekend but expected to have pains at that time and not a couple days later if that is the source of his issue. He has not tried any [id number] pain medications. Denies history of diverticulitis. Related Data Home Medications ?Medication ?Instructions ?Recorded ?Confirmed ?Last Taken ?Type amlodipine 5 mg tablet mg 05/22/22 Unknown History aspirin 81 mg 05/22/22 Unknown History clopidogrel 75 mg tablet mg 05/22/22 Unknown History simvastatin 40 mg tablet mg 05/22/22 Unknown History valsartan 160 mg tablet mg 05/22/22 Unknown History Allergies Allergy/AdvReac Type Severity Reaction Status Date / Time No Known Allergies Allergy Mild Verified 01/17/25 06:15 Review of Systems 2 Review of Systems: All systems reviewed & are unremarkable except as noted in HPI and below Constitutional: Constitutional: Reports no additional constitutional complaints Cardiovascular: Cardiovascular: Reports no additional cardiovascular complaints Respiratory: Respiratory: Reports no additional respiratory complaints Gastrointestinal: Gastrointestinal: Reports no additional gastrointestinal complaints Genitourinary: Genitourinary: Reports no additional male genitourinary complaints [facility] Past Medical History Medical History (Updated 01/17/25 @ 10:14 by Kasi Cramer MD) Hypertension Coronary artery disease Surgical History Surgical History (Updated 01/17/25 @ 08:15 by Kasi Cramer MD) Hx of CABG Family History Family History (Updated 01/03/23 @ 08:48 by Yoly Cardenas RN) Mother Hypertension Dementia Alzheimer disease Sibling CAD (coronary artery disease) Prostate carcinoma Social History Social History Smoking status: Never smoker Exam 2 Narrative: GENERAL: Well-appearing, well-nourished, and in no acute distress. HEAD: Normocephalic, atraumatic. ENT: Mucous membranes moist. CHEST: Clear to auscultation. No respiratory distress. HEART: Regular rate and rhythm. Normal peripheral pulses. ABDOMEN: Soft, Tender palpation lateral left mid abdomen that causes patient to jump in when some pain, no tenderness with direct palpation of the quadrants of the abdome, nondistended. EXTREMITIES: Normal range of motion. No edema. SKIN: Warm, dry, no rash. NEURO: Alert and oriented x3. PSYCH: Normal mood and affect. Course Course Emergency Course: Patient educated on lab and imaging findings including the pulmonary nodule and need for follow-up CT. Needs to discuss with PCP. Vital Signs Vital signs: Vital Signs Pulse Rate 70 01/17/25 06:29 Respiratory Rate 13 01/17/25 06:29 Blood Pressure 156/77 H 01/17/25 06:29 Pulse Oximetry 99 01/17/25 06:29 Pulse Rate 61 01/17/25 10:01 Respiratory Rate 11 L 01/17/25 10:01 Blood Pressure 124/74 01/17/25 10:01 Pulse Oximetry 97 01/17/25 10:01 Medical Decision Making Vital Signs Vital Signs: Vital Signs Pulse Rate 70 01/17/25 06:29 Respiratory Rate 13 01/17/25 06:29 Blood Pressure 156/77 H 01/17/25 06:29 Pulse Oximetry 99 01/17/25 06:29 Pulse Rate 61 01/17/25 10:01 Respiratory Rate 11 L 01/17/25 10:01 Blood Pressure 124/74 01/17/25 10:01 Pulse Oximetry 97 01/17/25 10:01 Lab Data 01/17/25 06:36 01/17/25 06:36 Labs: Lab Results 01/17/25 01/17/25 01/17/25 Range/Units 06:35 06:36 06:45 WBC 10.5 H (4.5-10.0) K/mm3 RBC 3.95 L (4.6-6.20) M/mm3 Hgb 10.4 L (14.0-18.0) g/dL Hct 33.6 L (42.0-52.0) % MCV 85.1 (80-100) fl MCH 26.3 (26-34) pg MCHC 31.0 L (32-36) g/dl RDW 15.6 H (11.5-14.5) % Plt Count 216 (150-375) k/mm3 MPV 9.0 (7.4-10.4) fl Immature Gran % (Auto) 0.5 (0-0.5) % Neut % (Auto) 78.6 H (45.5-73.1) % Lymph % (Auto) 9.1 L (18.3-44.2) % [place] % (Auto) 10.3 H (2.6-8.5) % Eos % (Auto) 1.1 (0-4.4) % Baso % (Auto) 0.4 (0.2-1.2) % Lymph # (Auto) 0.95 (0.9-3.2) K/mm3 [place] # (Auto) 1.1 H (0.1-0.6) K/mm3 Eos # (Auto) 0.1 (0-0.3) K/mm3 Baso # (Auto) 0.0 (0.0-0.1) K/mm3 Abs Immat Gran (auto) 0.05 H (0.00-0.031) K/mm3 Absolute Neuts (auto) 8.2 H (1.3-6.7) K/mm3 Absolute Nucleated RBC 0.000 (0.0-0.012) K/mm3 Nucleated RBC % 0.0 (0.0-0.2) % Sodium 134 L (137-145) mmol/L Potassium 4.5 (3.4-5.0) mmol/L Chloride 100 (98-107) mmol/L Carbon Dioxide 26 (22-30) mmol/L Anion Gap 8 (4-12) mmol/L BUN 18 (9-20) mg/dL Creatinine 0.99 (0.7-1.3) mg/dL Estim Creat Clear Calc 51 ml/min Estimated GFR > 60 (59 - ) Glucose 117 H (65-110) mg/dL Calcium 9.4 (8.4-10.2) mg/dL Total Bilirubin 0.7 (0.2-1.3) mg/dL AST 33 (17-59) U/L ALT 24 (6-50) U/L Alkaline Phosphatase 70 (38-126) U/L Troponin I < 0.012 (0.000-0.034) ng/mL Total Protein 7.0 (6.3-8.2) g/dL Albumin 4.3 (3.5-5.1) g/dL Lipase 63 (23-300) U/L Urine Color Yellow (Yellow) Urine Appearance Clear (Clear) Urine pH 5.0 (5.0-9.0) Ur Specific [place] 1.017 (1.001-1.035) Urine Protein Negative (Negative) mg/dL Urine Glucose (UA) Negative (Negative) mg/dL Urine Ketones Negative (Negative) mg/dL Ur Blood (Man) Negative (Negative) Urine Nitrate Negative (Negative) Urine Bilirubin Negative (Negative) Urine Urobilinogen 0.2 (<2.0) mg/dL Leukocyte Esterase Rfl Negative (Negative) JOAQUIN/UL Imaging Data Radiologist's impression: ITS Impressions Chest X-Ray 01/17/25 08:15 IMPRESSION: No acute cardiopulmonary pathology. Abdomen/Pelvis CT 01/17/25 08:19 Impression: Findings compatible with infectious/inflammatory colitis at the proximal to mid descending colon. No abscess, free air, or obstruction. Neoplasm felt to be less likely given the overall appearance. Correlate clinically. Consider colonoscopy as indicated. 7 mm pleural-based nodule left lower lobe. According to Fleischner criteria, for a low-risk patient, recommend follow-up CT scan in 6-12 months, then consider additional 18-[address] For a high-risk patient, follow-up CT scans at both 6-12 months and 18-24 months are recommended.. Discharge Plan Discharge Clinical Impression: Colitis, Pulmonary nodule Patient Disposition: Home Condition: Stable Instructions: Pulmonary Nodules (ED), Colitis (ED) Additional Instructions: Return to the emergency department if you develop severe abdominal pain, severe nausea and vomiting to the point where you are unable to keep down fluids, if you develop chest pain or difficulty breathing, blood in your stool, dizziness or fainting, or if you develop any other new or concerning symptoms as these could be signs of more serious medical illness. Try to stay well hydrated. Patient Language: Romanian Prescriptions: New amoxicillin-pot clavulanate 875-125 mg tablet 1 tablet PO Q12H Qty: 20 0RF No Action clopidogrel 75 mg tablet amlodipine 5 mg tablet simvastatin 40 mg tablet valsartan 160 mg tablet aspirin 81 mg cyclobenzaprine 10 mg tablet 10 mg PO TID Qty: 14 0RF prednisone 10 mg tablets,dose pack See Taper PO DAILY 12 Days Qty: 42 0RF Taper: Prednisone Taper from 60 mg;12 days 60 mg DAILY for 2 Days and 0 Hour 50 mg DAILY for 2 Days and 0 Hour 40 mg DAILY for 2 Days and 0 Hour 30 mg DAILY for 2 Days and 0 Hour 20 mg DAILY for 2 Days and 0 Hour 10 mg DAILY for 2 Days and 0 Hour hydrocodone-acetaminophen 5-325 mg tablet 1 tablet PO Q6H PRN (Reason: pain) Qty: 14 0RF Follow-up/Referrals: UNKNOWN,DOCTOR [Primary Care Provider] -
[2025-01-17 09:41] LABS: Troponin I < 0.012 ng/mL (0.000-0.034)
== END 2025-01-17 10:44 | disposition home or self-care (01) ==
PROVIDERS: Preventive Medicine Aerospace Medicine; Emergency Provider Emergency Medicine
DX: K52.9 Noninfective gastroenteritis and colitis, unspecified (principal); R91.1 Solitary pulmonary nodule; I10 Essential (primary) hypertension; I25.10 Atherosclerotic heart disease of native coronary artery without angina pectoris; Z95.1 Presence of aortocoronary bypass graft; R00.1 Bradycardia, unspecified
CPT/HCPCS: 36415; 71046; 74177; 80053; 81003; 83690; 84484; 85025; 93005; 96374; 99284; J1885; Q9967

== ENCOUNTER 2025-09-13 08:20 | Emergency (ER) | payer BC, SELFPAY ==
--- NOTE | ~2025-09-13 | CT_ITS ---
EXAMINATION: CT abdomen pelvis w con DATE: 09/13/2025 13:08 INDICATION: Right flank pain TECHNIQUE: Computed tomography (CT) of the abdomen and pelvis was performed with 100 mL Omnipaque-350 intravenous contrast. Automated exposure control and iterative reconstruction technique were employed. The dose-length product was 296.38 mGy-cm. COMPARISON: 01/09/2025 FINDINGS: 6 mm triangular likely intrafissural lymph node along the right major fissure. Unchanged 7 mm pleural-based nodule at the anterobasilar segment of the left lower lobe. Heart size is normal. Atherosclerotic coronary artery calcification. No pericardial or pleural effusion. There are couple subcentimeter low- attenuation likely hepatic cysts or hemangiomas. Gallbladder, spleen, pancreas, bilateral adrenal glands and kidneys are normal. Prostatomegaly measuring 5.5 x 4.9 cm. Bladder is normal. There are a few colonic diverticula without adjacent inflammatory stranding to suggest diverticular colitis. Small bowel and appendix are normal. Small bilateral hydroceles. No free intraperitoneal gas or fluid. No pathologically enlarged abdominal or pelvic lymphadenopathy. Mild lumbar dextrocurvature with moderate to severe lumbar and lower thoracic spondylosis. IMPRESSION: 1. No acute intra-abdominal/pelvic process. 2. Prostatomegaly. 3. Unchanged 7 mm pleural-based left lower lobe nodule. Consider additional 12 month follow-up low-dose noncontrast chest CT. Reviewed, dictated and finalized at location A. LE DATABASE ADMINISTRATOR
--- OUTSIDE RECORDS SUMMARY | 2025-09-13 08:27 | XMS_ITS | Encounter Summary ---
Author Organization [facility] Address [address] [place] [address] Care Team Providers Care Automotive Lube Technician Name Role Phone Mimi Fernandez MD Primary Care Provider [phone] Encounter Details Date Type Department Care Team (Latest Contact Info) Description 06/08/2008 Outpatient Historical [facility] Igor Guerrero MD NO ADDRESS ON FILE Coronary Atherosclerosis of Ruby Coronary Artery Social History Tobacco Use Types Packs/Day Years Used Date Smoking Tobacco: Never Assessed Sex and Gender Information Value Date Recorded Sex Assigned at Not on file 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 RECEPTIONIST CLERK Gender Identity Not on file Sexual Orientation Not on file documented as of this encounter Plan of Treatment Upcoming Encounters Date Type Department Care Team (Late st Contact Info) Description 10/12/2025 9:30 AM RECEPTIONIST CLERK Office Visit [facility] [address] [facility] [address] [place] [phone] Valdez Frey MD [address] [facility] 2014 [place] [address] 10/24/2025 9:00 AM RECEPTIONIST CLERK Appointment [facility] Imaging Services [facility] 125 [place] [address] Anjana Rojo PA-C [address] [facility] 280 [place] [phone] 02/28/2026 11:00 AM CDT Office Visit [facility] Primary Care [address] [place] [address] [place] [address] [address] 09/01/2026 11:00 AM RECEPTIONIST CLERK Office Visit [facility] Primary Care [address] [facility] [place] [address] [place] [address] [place] [address] documented as of this encounter Procedures Procedure Name Priority Date/Time Associated Diagnosis Comments NM MYOCARDIAL PERFUSION EF Routine 06/08/2008 10:55 AM CDT documented in this encounter Results * NM MYOCARDIAL PERFUSION EF (06/08/2008 10:55 AM CDT) 06/08/2008 10:5 5 AM CDT Narrative INTERFACE SYSTEM - 06/08/2008 1:46 PM CDT [address] [address] Admit Date: 06/08/2008 ALEXANDRIA YELENA L Sex: M Admit Prov: IGOR GUERRERO Date: 1945 Primary Care Prov: KATHY CHAN CMRN: [id number] Room: [facility] SSN: [id number] IMAGING SERVICES Ordering Prov: N/A Accession Number: [id number] Interpretation Date of Procedure: 06/08/2008 Procedure Type: [...] Procedure Note Igor Horvath MD - 06/08/2008 [facility] [address], [place] [address] Admit Date: 06/08/2008 YELENA LIU Sex: M Admit Prov: IGOR GUERRERO Date: 1945 Primary Care Prov: KATHY CHAN CMRN: [id number] Room: [facility] SSN: [id number] IMAGING SERVICES Ordering Prov: N/A Interpretation Date [...] the patient was injected intravenously with 31.6 sRjGI17a tetrofosmin and exercise was continued for 2 [...] Electronically signed by: IGOR HORVATH 06/08/2008 13:45 us Igor Guerrero MD NM ORDERABLES Final Result INTERFACE SYSTEM Refer to clinic/hospital department documented in this encounter Visit Diagnoses Diagnosis Coronary atherosclerosis of kotlik coronary artery documented in this encounter Care Teams Automotive Lube Technician Relationship Specialty [place] [address] Gilberto Ayala [facility] 280 [place] [address] PCP - General Internal Medicine 08/25/24 documented as of this encounter
--- OUTSIDE RECORDS SUMMARY | 2025-09-13 08:27 | XMS_ITS | Encounter Summary ---
Author Organization [facility] Address [address] [place] [address] Care Team Providers Care Fish Hatchery Superintendent Name Role Phone Mimi Fernandez MD Primary Care Provider [phone] Encounter Details Date Type Department Care Team (Late st Contact Info) Description 06/30/2007 Outpatient Historical [facility] Primary [facility] - [facility] 755 [facility] [address] [place] [address] Jaya Roper MD NO ADDRESS ON FILE Social History Tobacco Use Types Packs/Day Years Used Date Smoking Tobacco: Never Assessed Sex and Gender Information Value Date Recorded Sex Assigned at Not on file 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 FLYING TEACHER Gender Identity Not on file Sexual Orientation Not on file documented as of this encounter Plan of Treatment Upcoming Encounters Date Type Department Care Team (Late st Contact Info) Description 10/12/2025 9:30 AM FLYING TEACHER Office Visit [facility] Heart and Vascular - [facility] [address] [facility] 160 [place] [address] Valdez Frey MD [address] [facility] 2014 [place] [address] 10/24/2025 9:00 AM FLYING TEACHER Appointment [facility] Imaging Services [facility] 125 [place] [address] Anjana Rojo PA-C [address] [facility] 280 [place] [address] 02/28/2026 11:00 AM CDT Office Visit [facility] Primary Care [address] [facility] [address] [facility] [place] [address] [place] [address] Jamie [facility] 280 [place] [address] 09/01/2026 11:00 AM FLYING TEACHER Office Visit [facility] Care [address] Ruff[address] N [facility] [address] [place] [address] [place] [address] Gilberto Ayala [facility] 280 [place] [address] documented as of this encounter Visit Diagnoses Not on filedocumented in this encounter Care Teams Fish Hatchery Superintendent Relationship Specialty [place] [address] Gilberto Ayala [facility] 280 [place] [address] PCP - General Internal Medicine 08/25/24 documented as of this encounter
--- OUTSIDE RECORDS SUMMARY | 2025-09-13 08:27 | XMS_ITS | Encounter Summary ---
Author Organization [facility] Address [address] [place] [address] Care Team Providers Care Dispatcher Clerk Name Role Phone Mimi Fernandez MD Primary Care Provider [phone] Encounter Details Date Type Department Care Team (Late st Contact Info) Description 10/07/2002 Outpatient Historical [facility] Primary Care - [facility] [address]55 [facility] [address] [place] [address] Jaya Roper MD NO ADDRESS ON FILE Social History Tobacco Use Types Packs/Day Years Used Date Smoking Tobacco: Never Assessed Sex and Gender Information Value Date Recorded Sex Assigned at Not on file 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 DENTAL CERAMIST ASSISTANT Gender Identity Not on file Sexual Orientation Not on file documented as of this encounter Plan of Treatment Upcoming Encounters Date Type Department Care Team (Late st Contact Info) Description 10/12/2025 9:30 AM DENTAL CERAMIST ASSISTANT Office Visit [facility] Heart and Vascular - [facility] [address] [facility] 160 [place] [address] Valdez Frey MD [address] [facility] 2014 [place] [address] 10/24/2025 9:00 AM DENTAL CERAMIST ASSISTANT Appointment [facility] Imaging Services [facility] 125 [place] [address] Anjana Rojo PA-C [address] [facility] 280 [place] [address] 02/28/2026 11:00 AM CDT Office Visit [facility] Primary Care Namrata Ruffin N [facility] [address] [facility] [place] [address] [place] [address] aJmie [facility] 280 [place] [address] 09/01/2026 11:00 AM DENTAL CERAMIST ASSISTANT Office Visit [facility] Care Namrata Ruffin N [facility] [address] [place] [address] [place] [address] Gilberto Ayala [facility] 280 [place] [address] documented as of this encounter Visit Diagnoses Not on filedocumented in this encounter Care Teams Dispatcher Clerk Relationship Specialty [place] [address] Gilberto Ayala [facility] 280 [place] [address] PCP - General Internal Medicine 08/25/24 documented as of this encounter
--- OUTSIDE RECORDS SUMMARY | 2025-09-13 08:27 | XMS_ITS | Encounter Summary ---
Author Organization [facility] Address [address] [place] [address] Care Team Providers Care Tassel Snipper Name Role Phone Mimi Fernandez MD Primary Care Provider [phone] Encounter Details Date Type Department Care Team (Late st Contact Info) Description 01/12/2004 Outpatient Historical [facility] Primary Care - [facility] [address] [facility] [address] [place] [address] Jaya Roper MD NO ADDRESS ON FILE Social History Tobacco Use Types Packs/Day Years Used Date Smoking Tobacco: Never Assessed Sex and Gender Information Value Date Recorded Sex Assigned at Not on file 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 BOAT OPERATOR Gender Identity Not on file Sexual Orientation Not on file documented as of this encounter Plan of Treatment Upcoming Encounters Date Type Department Care Team (Late st Contact Info) Description 10/12/2025 9:30 AM BOAT OPERATOR Office Visit [facility] Heart and Vascular - [facility] [address] [facility] 160 [place] [address] Valdez Frey MD [address] [facility] 2014 [place] [address] 10/24/2025 9:00 AM BOAT OPERATOR Appointment [facility] Imaging Services [facility] 125 [place] [address] Anjana Rojo PA-C [address] [facility] 280 [place] [address] 02/28/2026 11:00 AM CDT Office Visit [facility] Primary Care Namrata Ruffin N [facility] [address] [address] [facility] [place] [address] [place] [address] Jamie [facility] 280 [place] [address] 09/01/2026 11:00 AM BOAT OPERATOR Office [facility] Care Namrata Ruffin N [facility] [address] [place] [address] [place] [address] Gilberto Ayala [facility] 280 [place] [address] documented as of this encounter Visit Diagnoses Not on filedocumented in this encounter Care Teams Tassel Snipper Relationship Specialty [place] [address] Gilberto Ayala [facility] 280 [place] [address] PCP - General Internal Medicine 08/25/24 documented as of this encounter
--- OUTSIDE RECORDS SUMMARY | 2025-09-13 08:27 | XMS_ITS | Encounter Summary ---
Author Organization [facility] Address [address] [place] [address] Care Team Providers Care Financial Director Name Role Phone Mimi Fernandez MD Primary Care Provider Encounter Details Date Type Department Care Team (Latest Contact Info) Description 10/08/2007 Outpatient Historical [facility] Primary Care - [facility] 7[address] [facility] [address] [place] [address] Jaya Roper MD NO ADDRESS ON FILE Family History of Osteoporosis Social History Tobacco Use Types Packs/Day Years Used Date Smoking Tobacco: Never Assessed Sex and Gender Information Value Date Recorded Sex Assigned at Not on file 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 SUPPLIER QUALITY SPECIALIST Gender Identity Not on file Sexual Orientation Not on file documented as of this encounter Plan of Treatment Upcoming Encounters Date Type Department Care Team (Late st Contact Info) Description 10/12/2025 9:30 AM SUPPLIER QUALITY SPECIALIST Office Visit [facility] Heart and Vascular - [facility] [address] [facility] 160 [place] [address] Valdez Frey MD [address] [email or web address] 2014 [place] [address] 10/24/2025 9:00 AM SUPPLIER QUALITY SPECIALIST Appointment [facility] Imaging Services [facility] 125 [place] [address] Anjana Rojo PA-C [address] [facility] 280 [place] [address] 02/28/2026 11:00 AM CDT Office Visit [facility] Care [address]ata [address] N [facility] [address] [place] [address] [place] [address] Ay[address] [address] 09/01/2026 11:00 AM SUPPLIER QUALITY SPECIALIST Office Visit [facility] Care Namrata Ruffin N [facility] [address] [place] [address] [place] [address] [facility] 280 [place] [address] documented as of this encounter Procedures Procedure Name Priority Date/Time Associated Diagnosis Comments CBC WITH DIFFERENTIAL Routine 10/08/2007 8:44 AM SUPPLIER QUALITY SPECIALIST CBC WITH DIFFERENTIAL Routine 10/08/2007 8:44 AM SUPPLIER QUALITY SPECIALIST VITAMIN D 25 HYDROXY Routine 10/08/2007 8:44 AM SUPPLIER QUALITY SPECIALIST TSH Routine 10/08/2007 8:44 AM SUPPLIER QUALITY SPECIALIST CREATININE Routine 10/08/2007 8:44 AM SUPPLIER QUALITY SPECIALIST CALCIUM LEVEL Routine 10/08/2007 8:44 AM SUPPLIER QUALITY SPECIALIST LIPID PANEL Routine 10/08/2007 8:44 AM SUPPLIER QUALITY SPECIALIST documented in this encounter Results * CBC WITH DIFFERENTIAL (10/08/2007 8:44 AM SUPPLIER QUALITY SPECIALIST) NEUTROPHILS 63 45 - 70 % INTERFAC [...] 0.20 K/uL INTERFACE SYSTEM 10/08/2007 8:44 AM SUPPLIER QUALITY SPECIALIST us Jaya Roper MD HEMATOLOGY ORDERABLES Edited Performing Organization Address City/[facility] Co de Phone Number INTERFACE SYSTEM Refer to clinic/hospital department * CBC WITH DIFFERENTIAL (10/08/2007 8:44 AM SUPPLIER QUALITY SPECIALIST) WBC 4.8 4.0 - 9.8 K/uL INTERFACE [...] 12.4 fL INTERFACE SYSTEM 10/08/2007 8:44 AM SUPPLIER QUALITY SPECIALIST us Jaya Roper MD HEMATOLOGY ORDERABLES Edited Performing Organization Address City/[facility] de Phone Number INTERFACE SYSTEM Refer to clinic/hospital department * (ABNORMAL) LIPID PANEL (10/08/2007 8:44 AM SUPPLIER QUALITY SPECIALIST) CHOLESTEROL 222(H) 100 - 199 mg/dL INTERFACE SYSTEM TRIGLYCERIDE 225(H) 10 - 149 mg/dL INTERFACE SYSTEM HDL 44 40 - 59 mg/dL INTERFACE SYSTEM CHOL/HDL RATIO 5.0 2.0 - 5.0 INTER FACE SYSTEM LDL CALCULATED 133(H) <=99 mg/dL INTERFACE SYSTEM LIPID PANEL COMMENT See Below INTERFACE SYSTEM Comment: The adult ATP and pediatric NCEP classifications for lipids are available on the [facility] Intranet at: [email or web address] Select: Lab Policies and Procedures,Current Select: Lipid Panel Interpretation 10/08/2007 8:44 AM SUPPLIER QUALITY SPECIALIST Result Evonne Roper MD CHEMISTRY ORDERABLES Edited Performing Organization Address City/[facility] Co de Phone Number INTERFACE SYSTEM Refer to clinic/hospital department * CREATININE (10/08/2007 8:44 AM SUPPLIER QUALITY SPECIALIST) CREATININE 0.91 0.67 - 1.17 mg/dL INTERFACE SYSTEM GFR, >60 >=60 mL/min/1.7 sq meter INTERFACE SYSTEM GFR >60 >=60 mL/min/1.7 sq meter INTERFACE SYSTEM Comment: Estimated GFR rate interpretative information for both Americans and non- Americans is available on the [facility] Intranet at: [email or web address] Select: Lab Policies and Procedures Select: Reference Ranges - GFR 10/08/2007 8:44 AM SUPPLIER QUALITY SPECIALIST Result Evonne Roper MD CHEMISTRY ORDERABLES Edited Performing Organization Address [facility] de Phone Number INTERFACE SYSTEM Refer to clinic/hospital department * CALCIUM LEVEL (10/08/2007 8:44 AM SUPPLIER QUALITY SPECIALIST) CALCIUM 8.9 8.4 - 10.2 mg/dL INTERFACE SYSTEM 10/08/2007 8:44 AM SUPPLIER QUALITY SPECIALIST Result Evonne Roper MD CHEMISTRY ORDERABLES Edited Performing Organization Address City/State/[facility] Co de Phone Number INTERFACE SYSTEM Refer to clinic/hospital department * TSH (10/08/2007 8:44 AM SUPPLIER QUALITY SPECIALIST) TSH 3.01 0.27 - 4.20 uU/mL INTERFACE SYSTEM 10/08/2007 8:44 AM SUPPLIER QUALITY SPECIALIST Result Evonne Roper MD CHEMISTRY ORDERABLES Edited Performing Organization Address City/State/[facility] Co de Phone Number INTERFACE SYSTEM Refer to clinic/hospital department * VITAMIN D 25 HYDROXY (10/08/2007 8:44 AM SUPPLIER QUALITY SPECIALIST) VITAMIN D, 25 OH, TOTAL 22 20 [...] are >30 ng/mL. Lab test performed by: [facility] [address] MEI MARTINEZ MD 10/08/2007 8:44 AM SUPPLIER QUALITY SPECIALIST Jaya Roper MD CHEMISTRY ORDERABLES Edited Performing Organization Address [facility] Co de Phone Number INTERFACE SYSTEM Refer to clinic/hospital department documented in this encounter Visit Diagnoses Diagnosis Family history of osteoporosis documented in this encounter Care Teams Financial Director Relationship Specialty [place] [address] [facility] [address] [place] [address] [address] PCP - General Internal Medicine 08/25/24 documented as of this encounter
--- OUTSIDE RECORDS SUMMARY | 2025-09-13 08:27 | XMS_ITS | Encounter Summary ---
Author Organization [facility] Address [address] [place] [address] Care Team Providers Care Automobile Racer Name Role Phone Mimi Fernandez MD Primary Care Provider [phone] Encounter Details Date Type Department Care Team (Late st Contact Info) Description 06/30/2007 Outpatient Historical [facility] Primary Care - [facility] [address] [facility] [address] [place] [address] Jaya Roper MD NO ADDRESS ON FILE Social History Tobacco Use Types Packs/Day Years Used Date Smoking Tobacco: Never Assessed Sex and Gender Information Value Date Recorded Sex Assigned at Not on file 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 COLLECTION SYSTEMS CONSULTANT Gender Identity Not on file Sexual Orientation Not on file documented as of this encounter Plan of Treatment Upcoming Encounters Date Type Department Care Team (Late st Contact Info) Description 10/12/2025 9:30 AM COLLECTION SYSTEMS CONSULTANT Office Visit [facility] Heart and Vascular - [facility] [address] [facility] 160 [place] [address] Valdez Frey MD [address] [facility] [place] [facility] 2014 [place] [address] 10/24/2025 9:00 AM COLLECTION SYSTEMS CONSULTANT Appointment [facility] Imaging Services [facility] 125 [place] [address] Anjana Rojo PA-C [address] [facility] 280 [place] [address] 02/28/2026 11:00 AM CDT Office Visit [facility] Primary Care Namrata Ruffin N [facility] [address] [address] [facility] [place] [address] [place] [address] Jamie [facility] 280 [place] [address] 09/01/2026 11:00 AM COLLECTION SYSTEMS CONSULTANT Office Visit [facility] Care [place]ata [address]uff[address] [place] [facility] [place] [address] [address] [place] [address] [place] [address] Gilberto Ayala [facility] 280 [place] [address] documented as of this encounter Visit Diagnoses Not on filedocumented in this encounter Care Teams Automobile Racer Relationship Specialty Start [place] [address]berto Ayala [facility] [place] [facility] 280 [place] [address] PCP - General Internal Medicine 08/25/24 documented as of this encounter
--- OUTSIDE RECORDS SUMMARY | 2025-09-13 08:27 | XMS_ITS | Encounter Summary ---
Author Organization [facility] Address [address] [place] [address] Care Team Providers Care Surgical Supplies Sterilizer Name Role Phone Mimi Fernandez MD Primary Care Provider [phone] Encounter Details Date Type Department Care Team (Latest Contact Info) Description 09/26/2008 Outpatient Historical [facility] [address] Jaya Roper MD NO ADDRESS ON FILE Family History of Osteoporosis Social History Tobacco Use Types Packs/Day Years Used Date Smoking Tobacco: Never Alcohol Use Standard Drinks/Week Comments Yes 0 (1 standard drink = 0.6 oz pur e alcohol) Sex and Gender Information Value Date Recorded Sex Assigned at Not on file 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 PINION SORTER Gender Identity Not on file Sexual Orientation Not on file documented as of this encounter Plan of Treatment Upcoming Encounters Date Type Department Care Team (Late st Contact Info) Description 10/12/2025 9:30 AM PINION SORTER [facility]ascular - [facility] [address] [facility] 160 [place] [address] Valdez Frey MD [address] [facility] 2014 [place] [address] 10/24/2025 9:00 AM PINION SORTER Appointment [facility] [address] [place] [address] Anjana Rojo PA-C [address] [facility] 280 [place] [address] 02/28/2026 11:00 AM CDT [facility] Care Namrata Ruffin [address] [facility] [address] [facility] [place] [address] [place] [address] Gilberto Ayala [facility] 280 [place] [address] 09/01/2026 11:00 AM PINION SORTER Office Visit [facility] Namrata Ruffin [address] [facility] [address] [place] [address] [place] [address] Gilberto Ayala [address] [address] documented as of this encounter Visit Diagnoses Diagnosis Family history of osteoporosis documented in this encounter Care Teams Surgical Supplies Sterilizer Relationship Specialty [place] [address] Gilberto Ayala [address] [address] PCP - General Internal Medicine 08/25/24 documented as of this encounter
--- OUTSIDE RECORDS SUMMARY | 2025-09-13 08:27 | XMS_ITS | Encounter Summary ---
Author Organization [facility] Address [address] [place] [address] Care Team Providers Care Human Services Professional Name Role Phone Mimi Fernandez MD Primary Care Provider Encounter Details Date Type Department Care Team (Late st Contact Info) Description 02/04/2008 Outpatient Historical [facility] Primary Care - [facility] 7[address] [facility] [address] [place] [address] Jaya Roper MD NO ADDRESS ON FILE Social History Tobacco Use Types Packs/Day Years Used Date Smoking Tobacco: Never Assessed Sex and Gender Information Value Date Recorded Sex Assigned at Not on file 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 HUMAN SERVICES CASE MANAGER Gender Identity Not on file Sexual Orientation Not on file documented as of this encounter Plan of Treatment Upcoming Encounters Date Type Department Care Team (Late st Contact Info) Description 10/12/2025 9:30 AM HUMAN SERVICES CASE MANAGER Office Visit [facility] Heart and Vascular - [facility] [address] [facility] 160 [place] [address] Valdez Frey MD [address] [facility] 2014 [place] [address] 10/24/2025 9:00 AM HUMAN SERVICES CASE MANAGER Appointment [facility] Imaging Services [facility] [address] [place] [address] Anjana Rojo PA-C [address] [facility] 280 [place] [address] 02/28/2026 11:00 AM CDT Office Visit [facility] Primary Care Namrata Ruffin [address] [facility] [address] [facility] [place] [address] [place] [address] Jamie [facility] 280 [place] [address] 09/01/2026 11:00 AM HUMAN SERVICES CASE MANAGER Office Visit [facility] Care Namrata Ruffin N [facility] [address] [place] [address] [place] [address] Gilberto Ayala [facility] 280 [place] [address] documented as of this encounter Visit Diagnoses Not on filedocumented in this encounter Care Teams Human Services Professional Relationship Specialty [place] [address] Gilberto Ayala [facility] 280 [place] [address] PCP - General Internal Medicine 08/25/24 documented as of this encounter
--- OUTSIDE RECORDS SUMMARY | 2025-09-13 08:27 | XMS_ITS | Encounter Summary ---
Author Organization [facility] Address [address] [place] [address] Care Team Providers Care Cryogenic Transport Driver Name Role Phone Mimi Fernandez MD Primary Care Provider Encounter Details Date Type Department Care Team (Late st Contact Info) Description 06/23/2006 Orders Only [facility] Primary Care - [address] [place] [address] Jaya Roper MD NO ADDRESS ON FILE Social History Tobacco Use Types Packs/Day Years Used Date Smoking Tobacco: Never Assessed Sex and Gender Information Value Date Recorded Sex Assigned at Not on file 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 REFERRAL RN Gender Identity Not on file Sexual Orientation Not on file documented as of this encounter Progress Notes * Jaya Roper MD - 07/05/2008 7:53 PM CDT BLOOD PRESSURE: 130/80 Left Arm Sitting TEMPERATURE: 97.6??f Oral WEIGHT: 163lbs NURSE NAME: Gayle Meng M ALLERGIES: No known drug allergies. MEDICATIONS: Medications may have changed. Dr to review medications. CHIEF COMPLAINT Seen for a [...] extremity. ASSESSMENT Onychomycosis 110.1. NEUROLOGIC: CRANIAL NERVES: fisher trap II-XII grossly intact. DEEP TENDON REFLEXES: Deep tendon reflexes 2+/4 and symmetrical. 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 272.4-HYPERLIPIDEMIA very mild changes do not require intervention now. LAB ORDERS: Order number: [id number] Test Ordered: TSH (REFLEX FREE T4/FREE T3) 1727 Order number: [id number] Test Ordered: LIPID PANEL 1078 783.21-ABNORMAL LOSS OF WEIGHT probably just a variation,but it is not clearly explained, so will check some lab. LAB ORDERS: Order number: [id number] Test Ordered: CBC W/ DIFFERENTIAL 3150 702.19-SEBORRHEIC KERATOSIS area treated with liquid nitrogen on left zoroastrianism V76.44-SCREEN FOR CA OF PROSTATE LAB ORDERS: Order number: [id number] Test Ordered: PSA, TOTAL 1002 550.91-INGUINAL HERNIA [...] st Contact Info) Description 10/12/2025 9:30 AM REFERRAL RN Office Visit [facility] Heart and Vascular - [facility] [address] [place] [address] Valdez Frey MD [address] [facility] 2015 [place] [address] 10/24/2025 9:00 AM REFERRAL RN Appointment [facility] Imaging Services [facility] [address] [place] [address] Anjana Rojo PA-C [address] [address] 02/28/2026 11:00 AM CDT Office Visit [facility] Primary Care Namrata Ruffin [facility] [address] [facility] [place] [address] [place] [address]ala [address] [address] 09/01/2026 11:00 AM REFERRAL RN Office Visit [facility] Primary Care Namrata Ruffin [facility] [address] [facility] [place] [address] [place] [address] Gilberto Ayala [address] [address] documented as of this encounter Visit Diagnoses Not on filedocumented in this encounter Care Teams Cryogenic Transport Driver Relationship Specialty [place] [address] [address] PCP - General Internal Medicine 08/25/24 documented as of this encounter
--- OUTSIDE RECORDS SUMMARY | 2025-09-13 08:27 | XMS_ITS | Encounter Summary ---
Author Organization [facility] Address [address] [place] [address] Care Team Providers Care Street Light Cleaner Name Role Phone Mimi Fernandez MD Primary Care Provider [phone] Encounter Details Date Type Department Care Team (Late st Contact Info) Description 02/10/2001 Outpatient Historical [facility] Primary Care - [facility] [address] [facility] [address] [place] [address] Jaya Roper MD NO ADDRESS ON FILE Social History Tobacco Use Types Packs/Day Years Used Date Smoking Tobacco: Never Assessed Sex and Gender Information Value Date Recorded Sex Assigned at Not on file 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 MAINS AND SERVICE SUPERVISOR Gender Identity Not on file Sexual Orientation Not on file documented as of this encounter Plan of Treatment Upcoming Encounters Date Type Department Care Team (Late st Contact Info) Description 10/12/2025 9:30 AM MAINS AND SERVICE SUPERVISOR Office Visit [facility] Heart and Vascular - [facility] [address] [facility] 160 [place] [address] Valdez Frey MD [address] [facility] 2014 [place] [address] 10/24/2025 9:00 AM MAINS AND SERVICE SUPERVISOR Appointment [facility] Imaging Services [facility] 125 [place] [address] Anjana Rojo PA-C [address] [facility] 280 [place] [address] 02/28/2026 11:00 AM CDT Office Visit [facility] Primary Care Namrata Ruffin [address] [facility] [address] [facility] [place] [address] [place] [address] Jamie [facility] 280 [place] [address] 09/01/2026 11:00 AM MAINS AND SERVICE SUPERVISOR Office Visit [facility] Care Namrata Ruffin N [facility] [address] [place] [address] [place] [address] Gilberto Ayala [facility] 280 [place] [address] documented as of this encounter Visit Diagnoses Not on filedocumented in this encounter Care Teams Street Light Cleaner Relationship Specialty Start [place] [address] Gilberto Ayala [facility] 280 [place] [address] PCP - General Internal Medicine 08/25/24 documented as of this encounter
--- OUTSIDE RECORDS SUMMARY | 2025-09-13 08:27 | XMS_ITS | Encounter Summary ---
Author Organization [facility] Address [address] [place] [address] Care Team Providers Care Creative Services Producer Name Role Phone Mimi Fernandez MD Primary Care Provider [phone] Encounter Details Date Type Department Care Team (Latest Contact Info) Description 03/23/2008 Outpatient Historical [facility] [address] [facility] [address] [place] [address] Jaya Roper MD NO ADDRESS ON FILE Cor Athrscl-Uns Vessel Social History Tobacco Use Types Packs/Day Years Used Date Smoking Tobacco: Never Assessed Sex and Gender Information Value Date Recorded Sex Assigned at Not on file 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 BASE REMOVER Gender Identity Not on file Sexual Orientation Not on file documented as of this encounter Plan of Treatment Upcoming Encounters Date Type Department Care Team (Late st Contact Info) Description 10/12/2025 9:30 AM BASE REMOVER Office Visit [facility] [address] [facility] 160 [place] [address] Valdez Frey MD [address] [facility] 2014 [place] [address] 10/24/2025 9:00 AM BASE REMOVER Appointment [facility] Imaging Services [facility] 125 [place] [address] Anjana Rojo PA-C [address] [facility] 280 [place] [address] 02/28/2026 11:00 AM CDT Office Visit [facility] Primary Care Namrata Ruff[address] [place] [address] [place] [address] Desouzaer Gabe [address] [place] [address] 09/01/2026 11:00 AM BASE REMOVER Office Visit [facility] Primary Care [address] [place] [address] [place] [address] Ayala [facility] [address] [place] [address] documented as of this encounter Procedures Procedure Name Priority Date/Time Associated Diagnosis Comments HEPATIC FUNCTION PANEL Routine 03/23/2008 8:03 AM CDT LIPID PANEL Routine 03/23/2008 8:03 AM CDT documented in this encounter Results * (ABNORMAL) LIPID PANEL (03/23/2008 8:03 AM CDT) TRIGLYCERIDE 222(H) 10 - 149 mg/dL [facility] HDL 36(L) 40 - 59 mg/dL [facility] CHOL/HDL RATIO 3.6 2.0 - 5.0 [facility] CHOLESTEROL 130 100 - 199 mg/dL [facility] LDL CALCULATED 50 <=99 mg/dL [facility] LIPID PANEL COMMENT See Below [facility] Comment: The adult ATP and pediatric NCEP classifications for lipids are available on the [facility] Intranet at: [email or web address] [facility]: Lab Policies and Procedures,Current [facility]: Lipid Panel Interpretation Blood specimen (specimen) 03/23/2008 8:03 AM CDT 03/23/2008 10:31 AM CDT Jaya Roper MD CHEMISTRY ORDERABLES Edited Performing Organization Address City[facility]/ZIP Co de Phone Number [facility] CLIA# [id number] [address] [place] [address] * HEPATIC FUNCTION PANEL (03/23/2008 8:03 AM CDT) BILIRUBIN TOTAL 0.4 0.2 - 1.0 mg/dL [facility] ALKALINE PHOSPHATASE 92 40 - 129 U/L [facility] BILIRUBIN DIRECT 0.1 0.0 - 0.3 mg/dL [facility] TOTAL PROTEIN 7.4 6.3 - 8.6 g/dL [facility] AST 24 12 - 38 U/L [facility] ALBUMIN 4.7 3.4 - 4.8 g/dL [facility] ALT 19 0 - 41 U/L [facility] Blood specimen (specimen) 03/23/2008 8:03 AM CDT 03/23/2008 10:31 AM CDT Jaya Roper MD CHEMISTRY ORDERABLES Final Re sult Performing Organization Address City/[facility] Co de Phone Number [facility] CLIA# [id number] [address] [place] [address] documented in this encounter Visit Diagnoses Diagnosis Coronary atherosclerosis of unspecified type of vessel, wilton or graft documented in this encounter Care Teams Creative Services Producer Relationship Specialty [place] [address] [facility] [address] Gilberto Ayala [address] [address] PCP - General Internal Medicine 08/25/24 documented as of this encounter
--- OUTSIDE RECORDS SUMMARY | 2025-09-13 08:27 | XMS_ITS | Clinical Summary ---
Author Organization [facility] Address [address] [place] [address] Phone Care Team Providers Care Computer Systems Designer Name Role Phone Mimi Fernandez MD Primary Care Provider [phone] Allergies Active Allergy Reactions Criticality Noted Date [...] mg) by mouth daily. 03/24/2023 Active omega 6-nww-cxy-fish oil 1,000 mg (250 mg-750 mg)/5 mL [...] migh t be different from the original. Doctor Of Dental Surgery - Dr. 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 No recurrence. Syncope 02/25/2017 08/27/2017 HTN (hypertension) 03/05/2012 1 Unspecified disorder of sweat glands 06/30/2007 09/27/2009 Cough 01/19/2007 08/31/2009 Disturbance of salivary secretion 01/19/2007 08/31/2009 Loss of weight 06/23/2006 09/27/2009 Other seborrheic [...] Encounters Date Type Department Care Team Description 08/30/2025 11:30 AM SENIOR BIOSTATISTICIAN Office Visit [facility] Primary Care [address] [place] [address] Miim Fernandez MD Encounter for routine adult health examination without abnormal findings (Primary Dx); Benign hypertension; On intermediate card tender drug therapy; Prediabetes; Mixed hypercholesterolemia and hypertriglyceridemia; Coronary artery disease due to calcified coronary lesion; S/P CABG x 4; Paroxysmal atrial fibrillation (CMS/HCC); Pulmonary nodule; Family history of prostate cancer; Family history of Alzheimer's disease; Chronic right-sided low back pain without sciatica from Last 3 Months Immunizations Immunization Administration Dates Next Due (ADACEL/BOOSTRIX)(10 YR UP) TDAP VACCINE, 0.5ML, IM 09/26/2008 (PFIZER)(12 YR UP) COVID-19 VACCINE - EMERGENCY USE AUTHORIZATION, MRNA, [id number](PF) 30 MCG/0.3 ML IM SUSP 01/07/2022,07/06/2021,12/10/2020,11/17 (PNEUMOVAX 23)(50 YRS UP) PN EUMOCOCCAL POLYSACCHARIDE (PPV23) 0.5 ML, IM 02/21/2012 (PREVNAR 20)(6 WKS UP) PNEUM OCOCCAL CONJUGATE VACCINE 20-VALENT (PCV20), POLYSACCHARIDE [id number] CONJUGATE, ADJUVANT 0.5 ML (PF) IM 03/12/2022 [...] 1 Francisco dementia Healthy Brother 1 Francisco Heart Surgery Brother 1 Francisco Other Brother 1 Francisco dementia Other Brother 2 alzheimers Prostate Cancer Brother 2 prostate Alzheimer's Disease Brother 3 Devon dementia Other Brother 4 Devon dementia Alzheimer's Disease Maternal Aunt Alzheimer's Disease Maternal Grandmother Montez dementia Other Maternal Grandmother Montez dementi a Alzheimer's Disease Maternal Uncle Alzheimer's Disease Mother Karena dementia Hypertension Mother Karena Other Mother Karena dementia Colon Cancer Neg Hx Relation Name Status Comments Brother 1 Francisco Brother 2 Alive Brother 3 Devon Brother 4 Devon Alive Father no one Alive Maternal Aunt Maternal Grandmother Montez Maternal Uncle Mother Karena Sister Alive Social History Tobacco Use Types Packs/Day Years Used Date Smoking Tobacco: Never Passive Smoke Exposure: Never Smokeless Tobacco: Never Tobacco Cessation:Counseling Given: No Alcohol Use Standard Drinks/Week Comments Yes 6 (1 standard drink = 0.6 oz pur e alcohol) Socially Feeling Safe Answer Date Recorded Are you in a relationship wi th someone who hurts you emotionally and/or physically? No 10/13/2024 Sex and Gender Information Value Date Recorded Sex Assigned at Not on file 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 SENIOR BIOSTATISTICIAN Gender Identity Not on file Sexual Orientation Not on file Occupation Industry Job Start Date Job End Date Not on file Not on file Not on file Not on file Last Filed Vital Signs Vital Sign Reading Time Taken Comments Blood Pressure 134/78 08/30/2025 10:52 AM SENIOR BIOSTATISTICIAN Pulse 57 08/30/2025 10:52 AM SENIOR BIOSTATISTICIAN Temperature 36.7 C (98.1 F) 08/30/2025 10:52 AM SENIOR BIOSTATISTICIAN Respiratory Rate 16 08/30/2025 10:52 AM SENIOR BIOSTATISTICIAN Oxygen Saturation 98% 08/30/2025 10:52 AM SENIOR BIOSTATISTICIAN Inhaled Oxygen Concentration - - Weight 73 kg (161 lb) 08/30/2025 10:52 AM SENIOR BIOSTATISTICIAN Height 170.2 cm (5' 7) 08/30/2025 10:52 AM SENIOR BIOSTATISTICIAN Body Mass Index 25.22 08/30/2025 10:52 AM SENIOR BIOSTATISTICIAN Plan of Treatment Upcoming Encounters Date Type Department Care Team (Late st Contact Info) Description 10/12/2025 9:30 AM SENIOR BIOSTATISTICIAN Office Visit [facility] Heart [facility] Vascular - [facility] [address] [facility] [address] [place] [address] Valdez Frey MD [address] [address] 10/24/2025 9:00 AM SENIOR BIOSTATISTICIAN Appointment [facility] [address] [place] [address] Anjana Rojo PA-C [address] [address] 02/28/2026 11:00 AM CDT Office Visit [facility] Primary Care [place] [address] [facility] [address] [facility] [place] [address] [place] [address] Macias Crawford [address] [address] 09/01/2026 11:00 AM SENIOR BIOSTATISTICIAN Office Visit [facility] Primary Care [place] [address] [facility] [address] [facility] [place] [address] [place] [address] Macias Crawford [address] [address] Health Maintenance Due Date Last Done Comments RSV VACCINE (60+ or ) (1 - 1-dose 75+ series) 2021 INFLUENZA VACCINE (#1) 2025 , 06/10/2020, 09/04/2019, Additional history exists COVID-19 Vaccine ( - 2024-2 6 season) 2025 01/07/2022, 07/06/2021, 12/10/2020, Additional history exists DTAP/TDAP/TD [...] years Discontinued Medical Devices Implanted Type Area Retort Kiln Burner Device Identifier Shelf Expiration Date Model / Serial / Lot Taxi Driver Supervisor Clip Surgiclip Ii Adam 9.75in [id number] - [id number] Implanted:Qty : 1 on 11/04/2022 by Brooklynn Crenshaw MD at [facility] Clip Right: Leg [employer] - COVIDIEN [id number] 07/22/2027 [id number] / / [id number] Clip Ligating Horizon Med Ti 230896 - Csc - [id number] Implanted:Qty : 1 on 11/04/2022 by Brooklynn Crenshaw MD at [facility] Clip N/A: Chest TELEFLEX- WECK CLOSURE SYS [id number] 06/24/2027 / / [id number] Clip Ligating Horizon Sm Ti [id number] - Csc - [id number] Implanted:Qty : 8 on 11/04/2022 by Brooklynn Crenshaw MD at [facility] Clip N/A: Chest TELEFLEX INC 07/14/2027 / / [id number] Hemostat Surg Snow 2x4in 2081 [id number] Implanted:Qty : 1 on 11/04/2022 by Brooklynn Crenshaw MD at [facility] Hemostatic N/A: Chest J[employer]J- [employer] [id number] 02/20/20242081 / / [id number] Marker Anastomark Cabg Slcn -Pm-1 - [id number] Implanted:Qty : 3 on 11/04/2022 by Brooklynn Crenshaw MD at [facility] Other N/A: Aorta [employer] 01/19/2025 -PM-1 / / [id number] Cardiac Stent X1 Procedures Procedure Name Priority Date/Time Associated Diagnosis Comments PSA Routine 09/08/2025 9:20 AM SENIOR BIOSTATISTICIAN Encounter for routine adult health examination without abnormal findings Family history of prostate cancer CBC WITH DIFFERENTIAL Routine 09/08/2025 9:19 AM SENIOR BIOSTATISTICIAN Encounter for routine adult health examination without abnormal findings Benign hypertension 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 Paroxysmal atrial fibrillation (CMS/HCC) COMPREHENSIVE METABOLIC PANEL Routine 09/08/2025 9:19 AM SENIOR BIOSTATISTICIAN Encounter for routine adult health examination without abnormal findings Benign hypertension 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 Paroxysmal atrial fibrillation (CMS/HCC) LIPID PANEL Routine 09/08/2025 9:19 AM SENIOR BIOSTATISTICIAN Encounter for routine adult health examination without abnormal findings Mixed hypercholesterolemia and hypertriglyceridemia 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 Paroxysmal atrial fibrillation (CMS/HCC) HEMOGLOBIN A1C Routine 09/08/2025 9:19 AM SENIOR BIOSTATISTICIAN Encounter for routine adult health examination without abnormal findings Prediabetes 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 Paroxysmal atrial fibrillation (CMS/HCC) COLONOSCOPY REPORT 10/13/2024 11:37 AM SENIOR BIOSTATISTICIAN from Last 3 Months or Most Recently Relevant to Health Maintenance Results * PSA (09/08/2025 9:20 AM SENIOR BIOSTATISTICIAN) PSA 1.41 < OR = 4.00 ng/mL [facility] Comment: The total PSA value from this assay system is standardized against the WHO standard. The test result will be approximately 20% lower when compared to the equimolar-standardized total PSA (Enrique Chidi). Comparison of serial PSA results should be interpreted with this fact in mind. This test was performed using the Siemens chemiluminescent method. Values obtained from different assay methods cannot be used interchangeably. PSA levels, regardless of value, should not be interpreted as absolute evidence of the presence or absence of disease. FASTING:YES FASTING: YES Test Performed at: [facility] [address] Iftikhar Norman MD Blood 09/08/2025 9:20 AM SENIOR BIOSTATISTICIAN 09/08/2025 9:21 AM SENIOR BIOSTATISTICIAN us Mimi Fernandez MD CHEMISTRY ORDERABLES Final Resul t [facility] [phone] [facility] [address] * (ABNORMAL) CBC WITH DIFFERENTIAL (09/08/2025 9:19 AM SENIOR BIOSTATISTICIAN) WBC 5.6 3.8 - 10.8 Thousand/ uL [facility] RBC 4.17(L) 4.20 - 5.80 Million/u L [facility] HEMOGLOBIN 10.9(L) 13.2 - 17.1 g/dL [facility] HEMATOCRIT 34.9(L) 39.4 - 51.1 % [facility] MCV 83.7 81.4 - 101.7 fL [facility] MCH 26.1(L) 27.0 - 33.0 pg [facility] MCHC 31.2(L) 31.6 - 35.4 g/dL [facility] RDW 15.3(H) 11.0 - 15.0 % [facility] PLATELETS 223 140 - 400 Thousand/ uL [facility] MPV 9.4 7.5 - 12.5 fL [facility] NEUTROPHIL ABSOLUTE 3,545 1,500 - 7,800 cells/uL [facility] LYMPHOCYTE ABSOLUTE 1,142 850 - 3,900 cells/uL [facility] MONOCYTE ABSOLUTE 661 200 - 950 cells/uL [facility] EOSINOPHIL ABSOLUTE 202 15 - 500 cells/uL [facility] BASOPHILS ABSOLUTE 50 0 - 200 cells/uL [facility] NEUTROPHIL 63.3 % [facility] LYMPHOCYTES 20.4 % [facility] MONOCYTE 11.8 % [facility] EOSINOPHILS 3.6 % [facility] BASOPHILS 0.9 % [facility] Comment: FASTING:YES FASTING: YES Test Performed at: [place] [address] [address] [phone] [facility] Blood 09/08/2025 9:19 AM SENIOR BIOSTATISTICIAN 09/08/2025 9:21 AM SENIOR BIOSTATISTICIAN Mimi Fernandez MD HEMATOLOGY ORDERABLES Final Resu lt [facility] [phone] [email or web address] [place] [address] [address] [place] [phone] * (ABNORMAL) HEMOGLOBIN A1C (09/08/2025 9:19 AM SENIOR BIOSTATISTICIAN) HEMOGLOBIN A1C 6.0(H) <5.7 % of total Hgb [facility] Comment: For someone without known diabetes, a hemoglobin A1c value between 5.7% and 6.4% is consistent with prediabetes and should be confirmed with a follow-up test. For someone with known diabetes, a value <7% indicates that their diabetes is well controlled. A1c targets should be individualized based on duration of diabetes, age, comorbid conditions, and other considerations. This assay result is consistent with an increased risk of diabetes. Currently, no consensus exists regarding use of hemoglobin A1c for diagnosis of diabetes for children. ESTIMATED AVERAGE GLUCOSE (MG/DL) 126 mg/dL [facility] ESTIMATED AVERAGE GLUCOSE (MMOL/L) 7.0 mmol/L [facility] Comment: FASTING:YES FASTING: YES Test Performed at: [facility] [place] [address] [address] [phone] [facility] Blood 09/08/2025 9:19 AM SENIOR BIOSTATISTICIAN 09/08/2025 9:21 AM SENIOR BIOSTATISTICIAN Mimi Fernandez MD CHEMISTRY ORDERABLES Final Resul t [facility] [phone] [place] [address] [address] [place] [phone] * LIPID PANEL (09/08/2025 9:19 AM SENIOR BIOSTATISTICIAN) CHOLESTEROL 95 <200 mg/dL [facility] HDL 45 > OR = 40 mg/dL [facility] TRIGLYCERIDE 57 <150 mg/dL [facility] LDL CALCULATED 37 mg/dL (calc) [facility] Comment: Reference range: <100 Desirable range <100 mg/dL for primary prevention; <70 mg/dL for patients with CHD or diabetic patients with > or = 2 CHD risk factors. LDL-C is now calculated using the Yohana calculation, which is a validated novel method providing better accuracy than the Friedewald equation in the estimation of LDL-C. Timi SS et al. OPAL. 2013;310(19): 8661-1328 (http://education.Hybrent/faq/VGT277) CHOL/HDL RATIO 2.1 <5.0 (calc) [facility] NON-HDL CHOLESTEROL 50 <130 mg/dL (calc) [email or web address] Comment: For patients with diabetes plus 1 major ASCVD risk factor, treating to a non-HDL-C goal of <100 mg/dL (LDL-C of <70 mg/dL) is considered a therapeutic option. Test Performed at: [place] [address] [address] [place] [address] [facility] Blood 09/08/2025 9:19 AM SENIOR BIOSTATISTICIAN 09/08/2025 9:21 AM SENIOR BIOSTATISTICIAN Mimi Fernandez MD CHEMISTRY ORDERABLES Final Resul t [facility] [phone] [place] [address] [address] [place] [place] [phone] * (ABNORMAL) COMPREHENSIVE METABOLIC PANEL (09/08/2025 9:19 AM SENIOR BIOSTATISTICIAN) GLUCOSE 106(H) 65 - 99 mg/dL [email or web address] brayden Luis Comment: Fasting reference interval For someone without known diabetes, a glucose value between 100 and 125 mg/dL is consistent with prediabetes and should be confirmed with a follow-up test. BUN 14 7 - 25 mg/dL [email or web address] CREATININE 1.01 0.70 - 1.28 mg/dL [email or web address] GFR 76 > OR = 60 mL/min/1. 73m2 [email or web address] BUN/CREAT RATIO SEE NOTE: 6 - 22 (calc) [email or web address] Comment: Not Reported: BUN and Creatinine are within reference range. SODIUM 133(L) 135 - 146 mmol/L [email or web address] POTASSIUM 4.8 3.5 - 5.3 mmol/L [email or web address] CHLORIDE 99 98 - 110 mmol/L [facility] CO2 29 20 - 32 mmol/L [email or web address] CALCIUM 9.6 8.6 - 10.3 mg/dL [email or web address] TOTAL PROTEIN 6.9 6.1 - 8.1 g/dL [facility] ALBUMIN 4.6 3.6 - 5.1 g/dL [email or web address] GLOBULIN 2.3 1.9 - 3.7 g/dL (calc) [email or web address] ALBUMIN/GLOBULIN RATIO 2.0 1.0 - 2.5 (calc) [email or web address] BILIRUBIN TOTAL 0.5 0.2 - 1.2 mg/dL [email or web address] ALKALINE PHOSPHATASE 60 35 - 144 U/L [email or web address] AST 25 10 - 35 U/L [facility] ALT 25 9 - 46 U/L [email or web address] Comment: Test Performed at: [facility] [place] [address] [address] [place] [phone] Iftikhar Norman Blood 09/08/2025 9:19 AM SENIOR BIOSTATISTICIAN 09/08/2025 9:21 AM SENIOR BIOSTATISTICIAN us Mimi Fernandez MD CHEMISTRY ORDERABLES Final Resul t [facility] [phone] [email or web address] [address] [address] [place] [phone] * COLONOSCOPY REPORT (10/13/2024 11:37 AM SENIOR BIOSTATISTICIAN) Narrative Procedure Note Álvaro Sharma DO - 10/13/2024 11:37 AM CST [facility] Endoscopy Patient Name: Cameron Liu Procedure Date: [...] signed electronically. Number of Addenda: [address]; [place] [address] us Álvaro Sharma DO GI PROCEDURE ORDERABLES Rissa l Result from Last 3 Months or Most Recently Relevant to Health Maintenance Insurance MEDICARE PART A HOSPITAL ONLY BCBS FEDERAL RX [facility] Advance Directives For more information, please contact: [phone] Documents on File Type Date Recorded Patient Recycling Or Rubbish Collector Expl anation Advance Directive Living Will 05/06/2013 1:13 PM Advance Directive POA 12/23/2012 8:58 AM Ad torres Directive POA * Full Code (Latest Code Status on File) Date Activated Date Inactivated Comments 02/21/2025 12:06 PM * Full Code Date Activated Date Inactivated Comments 10/13/2024 10:07 AM 10/13/2024 2:36 PM * Full Code Date Activated Date Inactivated Comments 08/25/2024 12:46 PM 10/13/2024 9:28 AM * Full Code Date Activated Date Inactivated Comments 11/04/2022 4:08 PM 11/10/2022 3:04 PM * Full Code Date Activated Date Inactivated Comments 11/04/2022 10:02 AM 11/04/2022 4:07 PM Care Teams Computer Systems Designer Relationship Specialty [place] [address] [address] [facility] [address] [id number] PCP - General Internal Medicine 08/25/24
--- OUTSIDE RECORDS SUMMARY | 2025-09-13 08:27 | XMS_ITS | Encounter Summary ---
Author Organization [facility] Address [address] [place] [address] Care Team Providers Care Assorter Name Role Phone Mimi Fernandez MD Primary Care Provider [phone] Encounter Details Date Type Department Care Team (Latest Contact Info) Description 01/19/2007 [facility] NO ADDRESS ON FILE Cough (Primary Dx) Social History Tobacco Use Types Packs/Day Years Used Date Smoking Tobacco: Never Assessed Sex and Gender Information Value Date Recorded Sex Assigned at Not on file 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 FIGURE CLERK Gender Identity Not on file Sexual Orientation Not on file documented as of this encounter Plan of Treatment Upcoming Encounters Date Type Department Care Team (Late st Contact Info) Description 10/12/2025 9:30 AM FIGURE CLERK Office Visit [facility] Heart and Vascular - [facility] [address] [facility] [address] [place] [address] Valdez Frey MD [address] [facility] [address] [place] [address] 10/24/2025 9:00 AM FIGURE CLERK Appointment [facility] Services [facility] [address] [place] [address] Anjana Rojo PA-C [address] [facility] [address] [place] [address] 02/28/2026 11:00 AM CDT Office Visit [facility] Primary Care [address] [place] [address] [place] [address] Gilberto Ayala [facility] [address] [place] [address] 09/01/2026 11:00 AM FIGURE CLERK Office Visit [facility] Primary Care Namrata Flores [facility] [address] [place] [address] [place] [address] Gilberto Ayala [address] [address] documented as of this encounter Visit Diagnoses Diagnosis Cough- Primary documented in this encounter Care Teams Assorter Relationship Specialty [place] [address] Gilberto Ayala [address] [address] PCP - General Internal Medicine 08/25/24 documented as of this encounter
--- OUTSIDE RECORDS SUMMARY | 2025-09-13 08:27 | XMS_ITS | Clinical Summary ---
Author Organization [facility] Address [address] [place] [address] Care Team Providers Care Industrial X Ray Operator Name Role Phone Jaya Roper MD Primary Care Provider [phone] Source Comments [employer] [facility],non-owned Affiliates and Associated Physician Practices is amultiple site organization consisting of ambulatory clinics and hospital sitesin [place], [place], [place] and [place]. This disclosure is being madepursuant to the Care Everywhere program and may not contain all information available regarding this patient. 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 PROPERTY AGENT Gender Identity Not on file Sexual Orientation [...] 2:16 PM CDT Height 170.2 cm (5' 7) 03/21/2014 2:16 PM CDT Body Mass Index 24.12 03/21/2014 2:16 PM CDT Plan of Treatment Health Maintenance Due Date Last Done Comments DTAP/TDAP/TD VACCINES (1 - Tdap) 1965 PNEUMOCOCCAL VACCINE 50+ (1 of 1 - PCV) 1996 ZOSTER VACCINE (1 of 2) 1996 Respiratory Syncytial Virus (RSV) Vaccine Pt: or over 60 yrs (1 - 1-dose 75+ series) 2021 DEPRESSION SCREENING 09/22/2024 COVID-19 VACCINE (1 - 2024-2 6 season) 2025 INFLUENZA VACCINE (#1) 2025 HEPATITIS B VACCINE Aged Out No [...] patient's age to complete this topic Insurance [facility] MEDICARE Care Teams Industrial X Ray Operator Relationship Specialty Start Date End Date Jaya Roper MD [address] [place] [address] PCP - General Internal Medicine 03/18/14
--- OUTSIDE RECORDS SUMMARY | 2025-09-13 08:27 | XMS_ITS | Encounter Summary ---
Author Organization [facility] Address [address] [place] [address] Care Team Providers Care Waterway Traffic Checker Name Role Phone Mimi Fernandez MD Primary Care Provider [phone] Encounter Details Date Type Department Care Team (Late st Contact Info) Description 11/18/[address] 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 Heart and Vascular - [facility] [address]55 [facility] 160 [place] [address] Valdez Frey MD [address] [facility] 2014 [place] [address] 10/24/2025 9:00 AM SLATE MIXER Appointment [facility] Imaging Services [facility] 125 [place] [address] Ajnana Rojo PA-C [address] [facility] 280 [place] [address] 02/28/2026 11:00 AM CDT Office Visit [facility] Primary Care Namarta Ruffin N [facility] [address] [facility] [place] [address] [place] [address] Jamie [facility] 280 [place] [address] 09/01/2026 11:00 AM SLATE MIXER Office Visit [facility] Care Namrata Ruffin N [facility] [address] [place] [address] [place] [address] Gilber[address] Ayala [facility] 280 [place] [address] documented as of this encounter Visit Diagnoses Not on filedocumented in this encounter Care Teams Waterway Traffic Checker Relationship Specialty [place] [address] Gilberto Ayala [facility] 280 [place] [address] PCP - General Internal Medicine 08/25/24 documented as of this encounter
--- OUTSIDE RECORDS SUMMARY | 2025-09-13 08:27 | XMS_ITS | Encounter Summary ---
Author Organization [facility] Address [address] [place] [address] Care Team Providers Care Motor Vehicle Salesperson Name Role Phone Mimi Fernandez MD Primary Care Provider [phone] Encounter Details Date Type Department Care Team (Late st Contact Info) Description 06/23/2006 Outpatient Historical [facility] - [facility] 7[address] [facility] [address] [place] [address] Jaya Roper MD NO ADDRESS ON FILE Social History Tobacco Use Types Packs/Day Years Used Date Smoking Tobacco: Never Assessed Sex and Gender Information Value Date Recorded Sex Assigned at Not on file 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 SPORTS INFORMATION DIRECTOR Gender Identity Not on file Sexual Orientation Not on file documented as of this encounter Plan of Treatment Upcoming Encounters Date Type Department Care Team (Late st Contact Info) Description 10/12/2025 9:30 AM SPORTS INFORMATION DIRECTOR Office Visit [facility] Heart and Vascular - [facility] [address] [facility] 160 [place] [address] Valdez Frey MD [address] [facility] 2014 [place] [address] 10/24/2025 9:00 AM SPORTS INFORMATION DIRECTOR Appointment [facility] 125 [place] [address] Anjana Rojo PA-C [address] [facility] 280 [place] [address] 02/28/2026 11:00 AM CDT Office Visit [facility] Primary Care Namrata Ruffin N [facility] [address] [facility] [place] [address] [place] [address] Jamie [facility] 280 [place] [address] 09/01/2026 11:00 AM SPORTS INFORMATION DIRECTOR Office Visit [facility] Care Namrata Ruffin N [facility] [address] [place] [address] [place] [address] Gilberto Ayala [facility] 280 [place] [address] documented as of this encounter Visit Diagnoses Not on filedocumented in this encounter Care Teams Motor Vehicle Salesperson Relationship Specialty [place] [address] Gilberto Ayala [facility] 280 [place] [address] PCP - General Internal Medicine 08/25/24 documented as of this encounter
--- OUTSIDE RECORDS SUMMARY | 2025-09-13 08:27 | XMS_ITS | Encounter Summary ---
Author Organization [facility] Address 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 Gender Identity Not on file Sexual Orientation Not on file documented as of this encounter Plan of Treatment Upcoming Encounters Date Type Department Care Team (Late st Contact Info) Description 10/12/2025 9:30 AM OWNER OPERATOR TANKER TRUCK DRIVER Office Visit [facility] Heart and Vascular - [facility] [address] [facility] [address] [place] [address] Valdez Frey MD [address] [facility] 2014 [place] [address] 10/24/2025 9:00 AM OWNER OPERATOR TANKER TRUCK DRIVER Appointment [facility] Imaging Services [facility] 125 [place] [address] Anjana Rojo PA-C [address] [facility] 280 [place] [address] 02/28/2026 11:00 AM CDT Office Visit [facility] Primary Care [place] [place] [address] [place] [address] Gilberto Ayala [address] [address] 09/01/2026 11:00 AM OWNER OPERATOR TANKER TRUCK DRIVER Office Visit [facility] Primary Care Namrata Flores [facility] [place] [address] [place] [address] [place] [address] Gilberto Ayala [address] [address] documented as of this encounter Visit Diagnoses Diagnosis Dizziness and giddiness- Primary documented in this encounter Care Teams Glass Installer Technician Relationship Specialty [place] [address] Gilberto Ayala [address] [address] PCP - General Internal Medicine 08/25/24 documented as of this encounter
--- OUTSIDE RECORDS SUMMARY | 2025-09-13 08:27 | XMS_ITS | Encounter Summary ---
Author Organization [facility] Address [address] [place] [address] Care Team Providers Care Manager Reimbursement Name Role Phone Mimi Fernandez MD Primary Care Provider [phone] Encounter Details Date Type Department Care Team (Late st Contact Info) Description 02/04/2008 Outpatient Historical [facility] Primary Care - [facility] [address] [facility] [address] [place] [address] Jaya Roper MD NO ADDRESS ON FILE Social History Tobacco Use Types Packs/Day Years Used Date Smoking Tobacco: Never Assessed Sex and Gender Information Value Date Recorded Sex Assigned at Not on file 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 WEAVER TIRE CORD Gender Identity Not on file Sexual Orientation Not on file documented as of this encounter Plan of Treatment Upcoming Encounters Date Type Department Care Team (Late st Contact Info) Description 10/12/2025 9:30 AM WEAVER TIRE CORD Office Visit [facility] Heart and Vascular - [facility] [address] 7[address] [facility] 160 [place] [address] Valdez Frey MD [address] [facility] 2014 [place] [address] 10/24/2025 9:00 AM WEAVER TIRE CORD Appointment [facility] Imaging Services [facility] 125 [place] [address] Anjana Rojo PA-C [address] [facility] 280 [place] [address] 02/28/2026 11:00 AM CDT Office Visit [facility] Primary Care Namrata Ruffin N [facility] [address] [facility] [place] [address] [place] [address] Jamie [facility] 280 [place] [address] 09/01/2026 11:00 AM WEAVER TIRE CORD Office Visit [facility] Care Namrata Ruffin N [facility] [address] [place] [address] [place] [address] Gilberto Ayala [facility] 280 [place] [address] documented as of this encounter Visit Diagnoses Not on filedocumented in this encounter Care Teams Manager Reimbursement Relationship Specialty [place] [address] Gilberto Ayala [facility] 280 [place] [address] PCP - General Internal Medicine 08/25/24 documented as of this encounter
--- OUTSIDE RECORDS SUMMARY | 2025-09-13 08:27 | XMS_ITS | Encounter Summary ---
Author Organization [facility] Address [address] [place] [address] Care Team Providers Care Intelligence Engineer Name Role Phone Mimi Fernandez MD Primary Care Provider [phone] Encounter Details Date Type Department Care Team (Latest Contact Info) Description 10/22/1999 Outpatient Historical [facility] Jaya Roper MD NO ADDRESS ON FILE Routine general medical examination at a health care facility (Primary Dx) Social History Tobacco Use Types Packs/Day Years Used Date Smoking Tobacco: Never Assessed Sex and Gender Information Value Date Recorded Sex Assigned at Not on file 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 SHOWROOM SALESPERSON Gender Identity Not on file Sexual Orientation Not on file documented as of this encounter Plan of Treatment Upcoming Encounters Date Type Department Care Team (Late st Contact Info) Description 10/12/2025 9:30 AM SHOWROOM SALESPERSON Office Visit [facility] Heart and Vascular - [facility] [address] [facility] 160 [place] [address] Valdez Frey MD [address] [facility] 2014 [place] [address] 10/24/2025 9:00 AM SHOWROOM SALESPERSON Appointment [facility] Imaging Services [facility] 125 [place] [address] Anjana Rojo PA-C [address] [facility] 280 [place] [address] 02/28/2026 11:00 AM CDT Office Visit [facility] Primary Care [place] [address] [facility] [address] [place] [address] [place] [address] Ayala [facility] 280 [place] [address] 09/01/2026 11:00 AM SHOWROOM SALESPERSON Office [facility] Care Namrata Ruffin N [facility] [address] [facility] [place] [address] [place] [address] Gilberto Ayala [address] [address] documented as of this encounter Visit Diagnoses Diagnosis Routine general medical examination at a health care facility- Primary documented in this encounter Care Teams Intelligence Engineer Relationship Specialty [place] [address] Gilberto Ayala [facility] 280 [place] [address] PCP - General Internal Medicine 08/25/24 documented as of this encounter
--- OUTSIDE RECORDS SUMMARY | 2025-09-13 08:27 | XMS_ITS | Encounter Summary ---
Author Organization [facility] Address [address] [place] [address] Care Team Providers Care Math Coach Name Role Phone Mimi Fernandez MD Primary Care Provider [phone] Encounter Details Date Type Department Care Team (Late st Contact Info) Description 01/20/2008 Outpatient Historical [facility] Primary Care - [facility] [address] [facility] [address] [place] [address] Jaya Roper MD NO ADDRESS ON FILE Social History Tobacco Use Types Packs/Day Years Used Date Smoking Tobacco: Never Assessed Sex and Gender Information Value Date Recorded Sex Assigned at Not on file 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 DISPENSING AUDIOLOGIST Gender Identity Not on file Sexual Orientation Not on file documented as of this encounter Plan of Treatment Upcoming Encounters Date Type Department Care Team (Late st Contact Info) Description 10/12/2025 9:30 AM DISPENSING AUDIOLOGIST Office Visit [facility] Heart and Vascular - [facility] [address] [facility] 160 [place] [address] Valdez Frey MD [address] [facility] 2014 [place] [address] 10/24/2025 9:00 AM DISPENSING AUDIOLOGIST Appointment [facility] Imaging Services [facility] 125 [place] [address] Anjana Rojo PA-C [address] [facility] 280 [place] [address] 02/28/2026 11:00 AM CDT Office Visit [facility] Primary Care Namrata Ruffin N [facility] [address] [facility] [place] [address] [place] [address] Jamie [facility] 280 [place] [address] 09/01/2026 11:00 AM DISPENSING AUDIOLOGIST Office Visit [facility] Care Namrata Ruffin N [facility] [address] [place] [address] [place] [address] Gilberto Ayala [facility] 280 [place] [address] documented as of this encounter Visit Diagnoses Not on filedocumented in this encounter Care Teams Math Coach Relationship Specialty [place] [address] Gilberto Ayala [facility] 280 [place] [address] PCP - General Internal Medicine 08/25/24 documented as of this encounter
--- OUTSIDE RECORDS SUMMARY | 2025-09-13 08:27 | XMS_ITS | Encounter Summary ---
Author Organization [facility] Address [address] [place] [address] Care Team Providers Care Laboratory Coordinator Name Role Phone Mimi Fernandez MD Primary Care Provider [phone] Encounter Details Date Type Department Care Team (Late st Contact Info) Description 10/08/2007 Outpatient Historical [facility] Primary Care - [facility] [address] [facility] [address] [place] [address] Other, St[facility] NO ADDRESS ON FILE Social History Tobacco Use Types Packs/Day Years Used Date Smoking Tobacco: Never Assessed Sex and Gender Information Value Date Recorded Sex Assigned at Not on file 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 CONTRACTS MANAGER Gender Identity Not on file Sexual Orientation Not on file documented as of this encounter Plan of Treatment Upcoming Encounters Date Type Department Care Team (Late st Contact Info) Description 10/12/2025 9:30 AM CONTRACTS MANAGER Office Visit [facility] Heart and Vascular - [facility] [address] 7[address] [facility] 160 [place] [address] Valdez Frey MD [address] [facility] 2014 [place] [address] 10/24/2025 9:00 AM CONTRACTS MANAGER Appointment [facility] Imaging Services [facility] 125 [place] [address] Anjana Rojo PA-C [address] [facility] 280 [place] [address] 02/28/2026 11:00 AM CDT Office Visit [facility] Primary Care Namrata Ruffin N [facility] [address] [place] [address] [place] [address] Gilberto Ayala [facility] 280 [place] [address] 09/01/2026 11:00 AM CONTRACTS MANAGER Office Visit [facility] Care Namrata Ruff[place] [facility] [place] [address] [place] [address] [place] [address] Gilberto Ayala [address] [address] documented as of this encounter Visit Diagnoses Not on filedocumented in this encounter Care Teams Laboratory Coordinator Relationship Specialty [place] [address] Gilberto Ayala [address] [address] PCP - General Internal Medicine 08/25/24 documented as of this encounter
--- OUTSIDE RECORDS SUMMARY | 2025-09-13 08:27 | XMS_ITS | Encounter Summary ---
Author Organization [facility] Address [address] [place] [address] Care Team Providers Care Respiratory Care Technician Name Role Phone Mimi Fernandez MD Primary Care Provider [phone] Encounter Details Date Type Department Care Team (Late Contact Info) Description 01/21/2008 Outpatient Historical HIS CARD RECEPTION Conversion, History Tom Guerrero MD NO ADDRESS ON FILE Other Chest Pain Social History Tobacco Use Types Packs/Day Years Used Date Smoking Tobacco: Never Assessed Sex and Gender Information Value Date Recorded Sex Assigned at Not on file 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 TRANSPORTATION ANALYST Gender Identity Not on file Sexual Orientation Not on file documented as of this encounter Plan of Treatment Upcoming Encounters Date Type Department Care Team (Late st Contact Info) Description 10/12/2025 9:30 AM TRANSPORTATION ANALYST Office Visit [facility] Heart and Vascular - [facility] [address] [facility] [address] [place] [phone] Valdez Frey MD [address] [facility] 2014 [place] [phone] 10/24/2025 9:00 AM TRANSPORTATION ANALYST Appointment [facility] Services [facility] [address] [place] [address] Anjana Rojo PA-C [address] [facility] 280 [place] [phone] 02/28/2026 11:00 AM CDT Office Visit [facility] Primary Care [place] [address] [place] [address] [place] [address] [place] [address] 09/01/2026 11:00 AM TRANSPORTATION ANALYST Office Visit [facility] Primary Care [address] [address] [place] [address] [place] [address] Gilberto Bernal [address] [place] [address] documented as of this encounter Procedures Procedure [...] PM CDT) TROPONIN T 0.01 <=0.03 ng/mL [facility] TROPONIN T INTERP Negative [facility] Blood specimen (specimen) 01/22/2008 11:05 PM CDT 01/22/2008 11:13 PM CDT Tom Guerrero MD CHEMISTRY ORDERABLES Edited Performing Organization Address [facility] Co de Phone Number [facility] [address] [facility] [place] [address] * CKMB W/REFLEX CK (01/22/2008 11:05 PM CDT) CKMB 2.9 <=6.7 ng/mL [facility] CKMB INTERP Negative [facility] Blood specimen (specimen) 01/22/2008 11:05 PM CDT 01/22/2008 11:13 PM CDT us Tom Guerrero MD CHEMISTRY ORDERABLES Edited Performing Organization Address [facility] de Phone Number [facility] [address] [facility] [place] [address] * CL CORONARY ANGIOGRAM (01/22/2008 7:01 PM CDT) Narrative INTERFACE SYSTEM - 01/22/2008 7:01 PM CDT [facility] [address] [place] [address] [email or web address] Cardiac Catheterization Comprehensive Report Patient: Cameron Liu Study ID: [id number] Gender: M : 1945 Age: 62 years Race: 1 Room: Bed: Height: 67 in ( 170.2 cm ) Study Date: January 22, 2008 Patient status: Outpatient Weight: 166.1 lb ( 75.5 kg ) Access. #: [id number] POC: Attending MD: Ebenezer Call MD: Ebenezer [...] was performed with a 2.5 x 15mm Stonewall 2 RX balloon. 1 inflation(s) were performed, [...] 18:10:04 Procedure Note Provider, Historical - 01/22/[address] [address] [email or web address] Cardiac Catheterization Comprehensive Report Patient: Cameron Liu Study ID: [id number] Gender: Chelsy : 1945 Age: 62 years Race: 1 Room: Bed: Height: 67 in ( 170.2 cm ) Study Date: January 22, 2008 Patient status: Outpatient Weight: 166.1 lb ( 75.5 kg ) Access. #: [id number] POC: Attending MD: Ebenezer Call MD: Ebenezer [...] remain in the hospital overnight for observation kendrick; I anticipate discharge tomorrow. A follow-up appointment [...] ORDERABLES Final Res ult Performing Organization Address [facility] de Phone Number INTERFACE SYSTEM Refer to clinic/hospital department * TROPONIN (01/22/2008 4:10 PM CDT) TROPONIN T <0.01 <=0.03 ng/mL [facility] TROPONIN T INTERP Negative [facility] Blood specimen (specimen) 01/22/2008 4:10 PM CDT 01/22/2008 4:16 PM CDT us oTm Guerrero MD CHEMISTRY ORDERABLES Edited Performing Organization Address [facility] Co de Phone Number [facility] [address] [place] [address] * CKMB W/REFLEX CK (01/22/2008 4:10 PM CDT) CKMB 2.2 <=6.7 ng/mL [facility] CKMB INTERP Negative [facility] Blood specimen (specimen) 01/22/2008 4:10 PM CDT 01/22/2008 4:16 PM CDT us Tom Guerrero MD CHEMISTRY ORDERABLES Edited Performing Organization Address [facility] Co de Phone Number [facility] [address] [place] [address] * POC ACTIVATED CLOTTING TIME (01/22/2008 2:25 PM CDT) ACT POC 307 Seconds [facility] Comment: Note sheath pull range change effective 03/14/2006. ACT value for sheath pull at [facility] has been established to be < or = to 140. (See also Nursing Procedures for sheath pull in related nursing areas) Blood specimen (specimen) 01/22/2008 2:25 PM CDT 01/22/2008 2:25 PM CDT Tom Guerrero MD POINT OF CARE TESTING Final Resu lt [facility] [address] [place] [address] * CBC WITH DIFFERENTIAL (01/22/2008 8:43 AM CDT) MCV 89.6 82.0 - 99.0 fL [facility] PLATELETS 229 140 - 350 K/uL [facility] HEMOGLOBIN 14.8 13.6 - 16.5 g/dL [facility] RDW 12.8 11.5 - 14.5 % [facility] WBC 5.1 4.0 - 9.8 K/uL [facility] MCH 30.1 27.2 - 32.6 pg [facility] MPV 10.1 9.3 - 12.4 fL [facility] HEMATOCRIT 44.0 40.0 - 48.0 % [facility] RDW-STDEV 41.3 37.1 - 48.7 fL [facility] RBC 4.91 4.50 - 5.40 M/uL [facility] MCHC 33.6 31.5 - 35.5 % [facility] EOSINOPHILS 2 0 - 7 % [facility] EOSINOPHIL ABSOLUTE 0.11 0.00 - 0.70 K/uL [facility] LYMPHOCYTES 27 16 - 45 % [facility] LYMPHOCYTE ABSOLUTE 1.40 0.70 - 4.50 K/uL [facility] BASOPHILS 1 0 - 2 % [facility] BASOPHILS ABSOLUTE 0.03 0.00 - 0.20 K/uL [facility] MONOCYTES 7 3 - 13 % [facility] MONOCYTE ABSOLUTE 0.35 0.10 - 1.30 K/uL [facility] NEUTROPHILS 63 45 - 70 % [facility] NEUTROPHIL ABSOLUTE 3.24 1.90 - 7.00 K/uL [facility] Blood specimen (specimen) 01/22/2008 8:43 AM CDT 01/22/2008 8:45 AM CDT Result [facility] Tom Guerrero MD HEMATOLOGY ORDERABLES Edited Performing Organization Address City/[facility]/ZIP Co de Phone Number INTERFACE SYSTEM Refer to clinic/hospital department [facility] [address] [place] [address] * (ABNORMAL) LIPID PANEL (01/22/2008 8:43 AM CDT) LDL CALCULATED 119(H) <=99 mg/dL [facility] TRIGLYCERIDE 231(H) 10 - 149 mg/dL [facility] CHOL/HDL RATIO 5.6(H) 2.0 - 5.0 [facility] HDL 36(L) 40 - 59 mg/dL [facility] CHOLESTEROL 201(H) 100 - 199 mg/dL [facility] LIPID PANEL COMMENT See Below [facility] Comment: The adult ATP and pediatric NCEP classifications for lipids are available on the [facility] Intranet at: [email or web address] new englandMusicplayrbath community hospital/unity/[email or web address].nsf Select: Lab Policies and Procedures,Current Select: Lipid Panel Interpretation Blood specimen (specimen) 01/22/2008 8:43 AM CDT 01/22/2008 8:45 AM CDT Narrative [facility] - 01/22/2008 9:37 AM CDT FASTING Tom Guerrero MD CHEMISTRY ORDERABLES Edited Performing Organization Address City/[facility]/ZIP Co de Phone Number [facility] [address] [place] [address] * (ABNORMAL) BASIC METABOLIC PANEL (01/22/2008 8:43 AM CDT) CHLORIDE 106 96 - 108 mmol/L [facility] GLUCOSE 102(H) 65 - 99 mg/dL [facility] SODIUM 140 135 - 145 mmol/L [facility] CALCIUM 8.9 8.4 - 10.2 mg/dL [facility] CO2 26 22 - 30 mmol/L [facility] CREATININE 0.90 0.67 - 1.17 mg/dL [facility] POTASSIUM 4.7 3.5 - 4.9 mmol/L [facility] Comment: Slight hemolysis present. Result may be falsely elevated. BUN 13 6 - 20 mg/dL [facility] GFR, >60 >=60 mL/min/1. 7 sq meter [facility] GFR >60 >=60 mL/min/1. 7 sq meter [facility] Comment: Estimated GFR rate interpretative information for both Americans and non- Americans is available on the [facility] Intranet at: [email or web address] of new englandAmerican [employer]/[email or web address] Select: Lab Policies and Procedures Select: Reference Ranges - GFR Blood specimen (specimen) 01/22/2008 8:43 AM CDT 01/22/2008 8:45 AM CDT Tom Guerrero MD CHEMISTRY ORDERABLES Edited [facility] [address] [place] [address] * PT AND APTT (01/22/2008 8:43 AM CDT) PROTIME 13.1 12.7 - 15.1 Seconds [facility] INR 1.0 0.9 - 1.1 [facility] Comment: INR Therapeutic Range: Adult: 2.0 - 3.0 for pulmonary embolism or prophylaxis against venous thrombosis or systemic embolization. 2.0 - 3.0 for patients with tissue heart valves. 2.5 - 3.5 for patients with mechanical heart valves or post OK. Pediatric (12 years and under): 1.5 - 3.0 Although the target range in children is not well established, INR values of 1.5 - 3.0 are recommended for most patients. Higher values have been used in children with prosthetic cardiac valves and hereditary clotting disorders. (<3 days) therapeutic ranges have not been established. PTT 28.1 24.4 - 36.4 Seconds [facility] Comment: PTT Therapeutic Range: Heparin Level PTT (seconds) <0.10 units/mL <53 0.10 - 0.30 units/mL 53 - 67 0.30 - 0.70 units/mL* 67 - 95* 0.70 - 1.00 units/mL 95 - 116 *corresponds to therapeutic range for unfractionated heparin Blood specimen (specimen) 01/22/2008 8:43 AM CDT 01/22/2008 8:45 AM CDT Tom Guerrero MD HEMATOLOGY ORDERABLES Edited [facility] [address] [place] [address] documented in this encounter Visit Diagnoses Diagnosis Other chest pain documented in this encounter Care Teams Respiratory Care Technician Relationship Specialty [place] [address] Gilber[address] Ayala [facility] [address] [place] [address] PCP - General Internal Medicine 08/25/24 documented as of this encounter
--- OUTSIDE RECORDS SUMMARY | 2025-09-13 08:27 | XMS_ITS | Encounter Summary ---
Author Organization [facility] Address [address] [place] [address] Care Team Providers Care Soldering Machine Setter Name Role Phone Mimi Fernandez MD Primary Care Provider Encounter Details Date Type Department Care Team (Latest Contact Info) Description 09/09/2007 [facility] NO ADDRESS ON FILE Family History of Osteoporosis Social History Tobacco Use Types Packs/Day Years Used Date Smoking Tobacco: Never Assessed Sex and Gender Information Value Date Recorded Sex Assigned at Not on file 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 LINING CLEANER Gender Identity Not on file Sexual Orientation Not on file documented as of this encounter Plan of Treatment Upcoming Encounters Date Type Department Care Team (Late st Contact Info) Description 10/12/2025 9:30 AM LINING CLEANER Office Visit [facility] Heart and Vascular - [facility] [address] [facility] [address] [place] [address] Valdez Frey MD [address] [facility] 2014 [place] [address] 10/24/2025 9:00 AM LINING CLEANER Appointment [facility] Imaging Services [facility] [address] [place] [address] Anjana Rojo PA-C [address] [facility] 280 [place] [address] 02/28/2026 11:00 AM CDT Office Visit [facility] Primary Care [place] [address] [place] [address] [place] [address] Gilberto Ayala [facility] 280 [place] [address] 09/01/2026 11:00 AM LINING CLEANER Office Visit [facility] Primary Care [place] [address] [facility] [address] [place] [address] [place] [address] Gilberto Ayala [address] [address] documented as of this encounter Visit Diagnoses Diagnosis Family history of osteoporosis documented in this encounter Care Teams Soldering Machine Setter Relationship Specialty [place] [address] Gilberto Ayala [address] [address] PCP - General Internal Medicine 08/25/24 documented as of this encounter
--- OUTSIDE RECORDS SUMMARY | 2025-09-13 08:27 | XMS_ITS | Encounter Summary ---
Author Organization [facility] Address [address] [place] [address] Care Team Providers Care Road Passenger Firer Name Role Phone Mimi Fernandez MD Primary Care Provider [phone] Encounter Details Date Type Department Care Team (Late st Contact Info) Description 10/22/1999 Outpatient Historical [facility] Primary Care - [facility] [address] [facility] [address] [place] [address] Jaya Roper MD NO ADDRESS ON FILE Social History Tobacco Use Types Packs/Day Years Used Date Smoking Tobacco: Never Assessed Sex and Gender Information Value Date Recorded Sex Assigned at Not on file 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 SPORTSPERSONS Gender Identity Not on file Sexual Orientation Not on file documented as of this encounter Plan of Treatment Upcoming Encounters Date Type Department Care Team (Late st Contact Info) Description 10/12/2025 9:30 AM SPORTSPERSONS Office Visit [facility] Heart and Vascular - [facility] [address] [facility] 160 [place] [address] Valdez Frey MD [address] [facility] [address] [place] [address] 10/24/2025 9:00 AM SPORTSPERSONS Appointment [facility] 125 [place] [address] Anjana Rojo PA-C [address] [facility] 280 [place] [address] 02/28/2026 11:00 AM CDT Office Visit [facility] Primary Care [place] [address] [facility] [address] [address] [facility] [place] [address] [place] [address] Jamie [facility] 280 [place] [address] 09/01/2026 11:00 AM SPORTSPERSONS Office Visit [facility] Care [place] [address] N [facility] [address] [place] [address] [place] [address] Gilberto Ayala [facility] 280 [place] [address] documented as of this encounter Visit Diagnoses Not on filedocumented in this encounter Care Teams Road Passenger Firer Relationship Specialty [place] [address] Gilberto Ayala [facility] [address] [place] [address] PCP - General Internal Medicine 08/25/24 documented as of this encounter
--- OUTSIDE RECORDS SUMMARY | 2025-09-13 08:27 | XMS_ITS | Encounter Summary ---
Author Organization [facility] Address [address] [place] [address] Care Team Providers Care Intensive Care Medicine Specialist Name Role Phone Mimi Fernandez MD Primary Care Provider [phone] Encounter Details Date Type Department Care Team (Late Contact Info) Description 01/21/2008 Orders Only [facility] Primary Care - [facility] [address] [facility] [address] [place] [address] Jaya Roper MD NO ADDRESS ON FILE Social History Tobacco Use Types Packs/Day Years Used Date Smoking Tobacco: Never Assessed Sex and Gender Information Value Date Recorded Sex Assigned at Not on file 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 BARREL PAINTER Gender Identity Not on file Sexual Orientation Not on file documented as of this encounter Plan of Treatment Upcoming Encounters Date Type Department Care Team (Late st Contact Info) Description 10/12/2025 9:30 AM BARREL PAINTER Office Visit [facility] Heart and Vascular - [facility] [address] [facility] [address] [place] [address] Valdez Frey MD [address] [facility] [address] [place] [address] 10/24/2025 9:00 AM BARREL PAINTER Appointment [facility] Imaging Services [facility] [address] [place] [address] Anjana Rojo PA-C [address] [facility] 280 [place] [address] 02/28/2026 11:00 AM CDT Office Visit [facility] Primary Care [place] [address]uff[address] N [facility] [address] [address] [address] [facility] [place] [address] [place] [address] [facility] 280 [place] [address] 09/01/2026 11:00 AM BARREL PAINTER Office Visit [facility] Care [place] Ruffin N [facility] [address] [place] [address] [place] [address] Gilberto Ayala [facility] [address] [place] [address] documented as of this encounter Visit Diagnoses Not on filedocumented in this encounter Care Teams Intensive Care Medicine Specialist Relationship Specialty [place] [address] Gilberto Ayala [facility] 280 [place] [address] PCP - General Internal Medicine 08/25/24 documented as of this encounter
--- OUTSIDE RECORDS SUMMARY | 2025-09-13 08:27 | XMS_ITS | Encounter Summary ---
Author Organization [facility] Address [address] [place] [address] Care Team Providers Care Construction Ironworker Name Role Phone Mimi Fernandez MD Primary Care Provider [phone] Encounter Details Date Type Department Care Team (Late st Contact Info) Description 06/23/2006 Outpatient Historical [facility] Primary Care - [facility] [address] [facility] [address] [place] [address] Jaya Roper MD NO ADDRESS ON FILE Social History Tobacco Use Types Packs/Day Years Used Date Smoking Tobacco: Never Assessed Sex and Gender Information Value Date Recorded Sex Assigned at Not on file 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 AVIATION OPERATIONS SPECIALIST Gender Identity Not on file Sexual Orientation Not on file documented as of this encounter Plan of Treatment Upcoming Encounters Date Type Department Care Team (Late st Contact Info) Description 10/12/2025 9:30 AM AVIATION OPERATIONS SPECIALIST Office Visit [facility] Heart and Vascular - [facility] [address] [facility] 160 [place] [address] Valdez Frey MD [address] [facility] [address] [place] [address] 10/24/2025 9:00 AM AVIATION OPERATIONS SPECIALIST Appointment [facility] Imaging Services [facility] [address] [place] [address] Anjana Rojo PA-C [address] [facility] [address] [place] [address] 02/28/2026 11:00 AM CDT Office Visit [facility] Primary Care [place] [address] [facility] [address] [address] [facility] [place] [address] [place] [address] [facility] [address] [place] [address] 09/01/2026 11:00 AM AVIATION OPERATIONS SPECIALIST Office Visit [facility] Care [place] Ruff[address] N [facility] [address] [address] [place] [address] Gilberto Ayala [facility] [address] [place] [address] documented as of this encounter Visit Diagnoses Not on filedocumented in this encounter Care Teams Construction Ironworker Relationship Specialty Start [place] [address] Gilberto Ayala [facility] [address] [place] [address] PCP - General Internal Medicine 08/25/24 documented as of this encounter
--- OUTSIDE RECORDS SUMMARY | 2025-09-13 08:27 | XMS_ITS | Encounter Summary ---
Author Organization [facility] Address [address] [place] [address] Care Team Providers Care Ammonia Print Operator Name Role Phone Mimi Fernandez MD Primary Care Provider [phone] Encounter Details Date Type Department Care Team (Latest Contact Info) Description 06/30/2007 Outpatient Historical [facility] Primary Care - [facility] [address] [facility] [address] [place] [address] Jaya Roper MD NO ADDRESS ON FILE Other and Unspecified Hyperlipidemia (Primary Dx) Social History Tobacco Use Types Packs/Day Years Used Date Smoking Tobacco: Never Assessed Sex and Gender Information Value Date Recorded Sex Assigned at Not on file 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 DIETARY SERVICE AIDE Gender Identity Not on file Sexual Orientation Not on file documented as of this encounter Plan of Treatment Upcoming Encounters Date Type Department Care Team (Late st Contact Info) Description 10/12/2025 9:30 AM DIETARY SERVICE AIDE Office Visit [facility] Heart and Vascular - [facility] [address] [facility] 160 [place] [address] Valdez Frey MD [address] [facility] 2014 [place] [address] 10/24/2025 9:00 AM DIETARY SERVICE AIDE Appointment [facility] Imaging Services [facility] 125 [place] [address] Anjana Rojo PA-C [address] [facility] 280 [place] [address] 02/28/2026 11:00 AM CDT Office Visit [facility] [address] [place] [address] [place] [address] Nara [facility] [address] [place] [address] 09/01/2026 11:00 AM DIETARY SERVICE AIDE Office Visit [facility] [address] [facility] [facility] [address] [place] [address] [place] [address] [facility] 280 [place] [address] documented as of this encounter [...] MD CHEMISTRY ORDERABLES Edited Performing Organization Address City/[facility] Co de Phone Number INTERFACE [...] the [facility] Intranet at: [email or web address] Select: Lab Policies and Procedures,Current Select: Lipid Panel Interpretation 06/30/2007 5:59 PM CDT us Jaya Roper MD CHEMISTRY ORDERABLES Edited Performing Organization Address [facility] Co de Phone Number INTERFACE SYSTEM Refer to clinic/hospital department * PSA (06/30/2007 5:59 PM CDT) PSA 1.4 0.0 - 4.0 ng/mL INTERFACE SYSTEM Comment:Performed on [employer] E170 System 06/30/2007 5:59 PM CDT us Jaya Roper MD CHEMISTRY ORDERABLES Edited INTERFACE SYSTEM Refer to clinic/hospital department documented in this encounter Visit Diagnoses Diagnosis Other and unspecified hyperlipidemia- Primary documented in this encounter Care Teams Ammonia Print Operator Relationship Specialty [place] [address] Ayala [address] [place] [address] PCP - General Internal Medicine 08/25/24 documented as of this encounter
--- OUTSIDE RECORDS SUMMARY | 2025-09-13 08:27 | XMS_ITS | Encounter Summary ---
Author Organization [facility] Address [address] [place] [address] Care Team Providers Care Hairspring Truing Inspector Name Role Phone Mimi Fernandez MD Primary Care Provider [phone] Encounter Details Date Type Department Care Team (Late st Contact Info) Description 01/20/2008 Outpatient Historical [facility] Primary Care - [facility] [address] [facility] [address] [place] [address] Jaya Roper MD NO ADDRESS ON FILE Social History Tobacco Use Types Packs/Day Years Used Date Smoking Tobacco: Never Assessed Sex and Gender Information Value Date Recorded Sex Assigned at Not on file 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 EXPLOSIVE ORDNANCE DISPOSAL SPECIALIST Gender Identity Not on file Sexual Orientation Not on file documented as of this encounter Plan of Treatment Upcoming Encounters Date Type Department Care Team (Late st Contact Info) Description 10/12/2025 9:30 AM EXPLOSIVE ORDNANCE DISPOSAL SPECIALIST Office Visit [facility] Heart and Vascular - [facility] [address] [facility] 160 [place] [address] Valdez Frey MD [address] [facility] 2014 [place] [address] 10/24/2025 9:00 AM EXPLOSIVE ORDNANCE DISPOSAL SPECIALIST Appointment [facility] Imaging Services [facility] 125 [place] [address] Anjana Rojo PA-C [address] [facility] 280 [place] [address] 02/28/2026 11:00 AM CDT Office Visit [facility] Primary Care Namrata Ruffin N [facility] [address] [facility] [place] [address] [place] [address] Jamie [facility] 280 [place] [address] 09/01/2026 11:00 AM EXPLOSIVE ORDNANCE DISPOSAL SPECIALIST Office [facility] Namrata Ruffin N [facility] [address] [place] [address] [place] [address] Gilber[address] Ayala [facility] 280 [place] [address] documented as of this encounter Visit Diagnoses Not on filedocumented in this encounter Care Teams Hairspring Truing Inspector Relationship Specialty Start [place] [address] Gilber[address] Ayala [facility] 280 [place] [address] PCP - General Internal Medicine 08/25/24 documented as of this encounter
--- OUTSIDE RECORDS SUMMARY | 2025-09-13 08:27 | XMS_ITS | Encounter Summary ---
Author Organization [facility] Address [address] [place] [address] Care Team Providers Care Infrastructure Director Name Role Phone Mimi Fernandez MD Primary Care Provider [phone] Encounter Details Date Type Department Care Team (Latest Contact Info) Description 05/05/2009 Outpatient Historical [facility] AND Jaya Stuart MD NO ADDRESS ON FILE Cor Athrscl-Uns Vessel Social History Tobacco Use Types Packs/Day Years Used Date Smoking Tobacco: Never Alcohol Use Standard Drinks/Week Comments Yes 0 (1 standard drink = 0.6 oz pur e alcohol) Sex and Gender Information Value Date Recorded Sex Assigned at Not on file 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 AUTOMATIC DRILL OPERATOR Gender Identity Not on file Sexual Orientation Not on file documented as of this encounter Plan of Treatment Upcoming Encounters Date Type Department Care Team (Late st Contact Info) Description 10/12/2025 9:30 AM AUTOMATIC DRILL OPERATOR Office Visit [facility] Heart and V[facility] - [facility] [address] [facility] 160 [place] [address] Valdez Frey MD [address] [facility] 2014 [place] [address] 10/24/2025 9:00 AM AUTOMATIC DRILL OPERATOR Appointment [facility] Imaging Services [facility] 125 [place] [address] Anjana Rojo PA-C [address] [facility] [address] [facility] 280 [place] [address] 02/28/2026 11:00 AM CDT Office Visit [facility] Primary Care Namr[place] Ruffin [address] [facility] [address] [facility] [place] [address] [place] [address] Ayala [facility] 280 [place] [address] 09/01/2026 11:00 AM AUTOMATIC DRILL OPERATOR Office Visit [facility] Namrata Flores [facility] [address] [place] [address] [place] [address] Desouzaer [facility] 280 [place] [address] documented as of this encounter Visit Diagnoses Diagnosis Coronary atherosclerosis of unspecified type of vessel, [place] or graft documented in this encounter Care Teams Infrastructure Director Relationship Specialty [place] [address] Gilberto Ayala [facility] 280 [place] [address] PCP - General Internal Medicine 08/25/24 documented as of this encounter
--- OUTSIDE RECORDS SUMMARY | 2025-09-13 08:27 | XMS_ITS | Encounter Summary ---
Author Organization [facility] Address [address] [place] [address] Care Team Providers Care Metal Container Maker Name Role Phone Mimi Fernandez MD Primary Care Provider Encounter Details Date Type Department Care Team (Latest Contact Info) Description 03/27/2009 Outpatient Historical [facility], [address] Jaya Roper MD NO ADDRESS ON FILE Other and Unspecified Hyperlipidemia Social History Tobacco Use Types Packs/Day Years Used Date Smoking Tobacco: Never Alcohol Use Standard Drinks/Week Comments Yes 0 (1 standard drink = 0.6 oz pur e alcohol) Sex and Gender Information Value Date Recorded Sex Assigned at Not on file 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 FOOD OPERATIONS MANAGER Gender Identity Not on file Sexual Orientation Not on file documented as of this encounter Plan of Treatment Upcoming Encounters Date Type Department Care Team (Late st Contact Info) Description 10/12/2025 9:30 AM FOOD OPERATIONS MANAGER Office Visit [facility] Heart and Vascular - [facility] [address] [facility] 160 [place] [address] Valdez Frey MD [address] [facility] 2014 [place] [address] 10/24/2025 9:00 AM FOOD OPERATIONS MANAGER Appointment [facility] Imaging Services [facility] 125 [place] [address] Anjana Rojo PA-C [address] [facility] 280 [place] [address] 02/28/2026 11:00 AM CDT Office Visit [facility] Primary Care Namr[place] Ruffin N [facility] [address] [place] [address] [place] [address] Jamie Gabe 280 [place] [address] 09/01/2026 11:00 AM FOOD OPERATIONS MANAGER Office Visit [facility] Namrata Flores [facility] [address] [place] [address] [place] [address] Gilberto Ayala [address] [address] documented as of this encounter Visit Diagnoses Diagnosis Other and unspecified hyperlipidemia documented in this encounter Care Teams Metal Container Maker Relationship Specialty [place] [address] Gilberto Ayala [address] [address] PCP - General Internal Medicine 08/25/24 documented as of this encounter
--- OUTSIDE RECORDS SUMMARY | 2025-09-13 08:27 | XMS_ITS | Encounter Summary ---
Author Organization [facility] Address [address] [place] [address] Care Team Providers Care Brake Mechanic Name Role Phone Mimi Fernandez MD Primary Care Provider [phone] Encounter Details Date Type Department Care Team (Latest Contact Info) Description 01/21/2008 Outpatient Historical [facility] Jaya Roper MD NO ADDRESS ON FILE Unspecified Chest Pain Social History Tobacco Use Types Packs/Day Years Used Date Smoking Tobacco: Never Assessed Sex and Gender Information Value Date Recorded Sex Assigned at Not on file 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 CHIEF OPERATOR REFORMER Gender Identity Not on file Sexual Orientation Not on file documented as of this encounter Plan of Treatment Upcoming Encounters Date Type Department Care Team (Late st Contact Info) Description 10/12/2025 9:30 AM CHIEF OPERATOR REFORMER Office Visit [facility] Heart and Vascular - [facility] [address] [facility] [address] [place] [address] Valdez Frey MD [address] [facility] 2014 [place] [address] 10/24/2025 9:00 AM CHIEF OPERATOR REFORMER Appointment [facility] Imaging Services [facility] 125 [place] [address] Anjana Rojo PA-C [address] [facility] 280 [place] [address] 02/28/2026 11:00 AM CDT Office Visit [facility] Primary Care [place] N [facility] [address] [place] [address] [place] [address] Gilberto Ayala [address] [address] 09/01/2026 11:00 AM CHIEF OPERATOR REFORMER Office Visit [facility] Primary Care [place] [address] [place] [address] [place] [address] Gilberto Ayala [address] [address] documented as of this encounter Visit Diagnoses Diagnosis Chest pain, unspecified documented in this encounter Care Teams Brake Mechanic Relationship Specialty [place] [address] Gilberto Ayala [address] [address] PCP - General Internal Medicine 08/25/24 documented as of this encounter
--- OUTSIDE RECORDS SUMMARY | 2025-09-13 08:27 | XMS_ITS | Encounter Summary ---
Author Organization [facility] Address [address] [place] [address] Care Team Providers Care Dike Supervisor Name Role Phone Mimi Fernandez MD Primary Care Provider [phone] Encounter Details Date Type Department Care Team (Late st Contact Info) Description 07/30/2001 Outpatient Historical [facility] Primary Care - [facility] [address] [facility] [address] [place] [address] Jaya Roper MD NO ADDRESS ON FILE Social History Tobacco Use Types Packs/Day Years Used Date Smoking Tobacco: Never Assessed Sex and Gender Information Value Date Recorded Sex Assigned at Not on file 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 WATERPROOFING MIXER Gender Identity Not on file Sexual Orientation Not on file documented as of this encounter Plan of Treatment Upcoming Encounters Date Type Department Care Team (Late st Contact Info) Description 10/12/2025 9:30 AM WATERPROOFING MIXER Office Visit [facility] Heart and Vascular - [facility] [address] [facility] 160 [place] [address] Valdez Frey MD [address] [facility] 2014 [place] [address] 10/24/2025 9:00 AM WATERPROOFING MIXER Appointment [facility] Imaging Services [facility] 125 [place] [address] Anjana Rojo PA-C [address] [facility] 280 [place] [address] 02/28/2026 11:00 AM CDT Office Visit [facility] Primary Care Namrata Ruffin N [facility] [address] [facility] [place] [address] [place] [address] Jamie [facility] 280 [place] [address] 09/01/2026 11:00 AM WATERPROOFING MIXER Office Visit [facility] Namrata Ruffin N [facility] [address] [place] [address] [place] [address] Gilberto Ayala [facility] 280 [place] [address] documented as of this encounter Visit Diagnoses Not on filedocumented in this encounter Care Teams Dike Supervisor Relationship Specialty [place] [address] Gilberto Ayala [facility] 280 [place] [address] PCP - General Internal Medicine 08/25/24 documented as of this encounter
--- OUTSIDE RECORDS SUMMARY | 2025-09-13 08:27 | XMS_ITS | Encounter Summary ---
Author Organization [facility] Address [address] [place] [address] Care Team Providers Care Supervisor Pole Yard Name Role Phone Mimi Fernandez MD Primary Care Provider [phone] Encounter Details Date Type Department Care Team (Late st Contact Info) Description 06/30/2007 Orders Only [facility] Primary Care - [address] [place] [address] Jaya Roper MD NO ADDRESS ON FILE Social History Tobacco Use Types Packs/Day Years Used Date Smoking Tobacco: Never Assessed Sex and Gender Information Value Date Recorded Sex Assigned at Not on file 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 ANODIC TREATER Gender Identity Not on file Sexual Orientation Not on file documented as of this encounter Progress Notes * Jaya Roper MD - 02/05/2008 10:45 AM CDT TEMPERATURE: 97.5??f Oral WEIGHT: [id number] BLOOD PRESSURE: 148/80 Right Arm Sitting NURSE [...] blood work today. LAB ORDERS: Order number: [id number] Test Ordered: LIPID PANEL 1078 Order number: [id number] Test Ordered: GLUCOSE LEVEL 1111 V70.0-ROUTINE GENERAL MEDICAL EXAMINATION Overall status is good. He has some minor maladies, none of which represent any significant issues. V76.44-SCREEN FOR CA OF PROSTATE LAB ORDERS: Order number: [id number] Test Ordered: PSA, TOTAL 1002 V17.81-FAMILY HISTORY OSTEOPOROSIS His father had osteoporosis, but he had been on steroids for some time. V17.2-FAMILY HISTORY NEUROLOGICAL DISEASES 705.9-DISORDERS OF SWEAT GLANDS He has some abnormal sweating, will check a thyroid function in light of his hyperlipidemia. LAB ORDERS: Order number: [id number] Test Ordered: TSH (REFLEX FREE T4/FREE T3) [...] Signed by: Jaya Roper MD on Friday, July 04, 2007 documented in this encounter Plan of Treatment Upcoming Encounters Date Type Department Care Team (Late st Contact Info) Description 10/12/2025 9:30 AM ANODIC TREATER Office Visit [facility] Heart and Vascular - [facility] [address] [facility] 160 [place] [address] Valdez Frey MD [address] [address] 10/24/2025 9:00 AM ANODIC TREATER Appointment [facility] Imaging Services [facility] 125 [place] [address] Anjana Rojo PA-C [address] [address] 02/28/2026 11:00 AM CDT Office Visit [facility] Primary Care [place] N [facility] [address] [facility] 280 [place] [address] [place] [address] [place] [address] [address] 09/01/2026 11:00 AM ANODIC TREATER Office Visit [facility] Primary Care Namr[place] Flores [facility] [address] [facility] [place] [address] [place] [address] Gilberto [facility] 280 [place] [address] documented as of this encounter Visit Diagnoses Not on filedocumented in this encounter Care Teams Supervisor Pole Yard Relationship Specialty [place] [address] Gilber[address] Ayala [facility] 280 [place] [address] PCP - General Internal Medicine 08/25/24 documented as of this encounter
--- OUTSIDE RECORDS SUMMARY | 2025-09-13 08:27 | XMS_ITS | Encounter Summary ---
Author Organization [facility] Address [address] [place] [address] Care Team Providers Care Commercial Internship Name Role Phone Mimi Fernandez MD Primary Care Provider [phone] Encounter Details Date Type Department Care Team (Late st Contact Info) Description 01/19/2007 Outpatient Historical [facility] Primary Care - [facility] [address] [facility] [address] [place] [address] Jaya Roper MD NO ADDRESS ON FILE Social History Tobacco Use Types Packs/Day Years Used Date Smoking Tobacco: Never Assessed Sex and Gender Information Value Date Recorded Sex Assigned at Not on file 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 REGISTRATION SPECIALIST Gender Identity Not on file Sexual Orientation Not on file documented as of this encounter Plan of Treatment Upcoming Encounters Date Type Department Care Team (Late st Contact Info) Description 10/12/2025 9:30 AM REGISTRATION SPECIALIST Office Visit [facility] Heart and Vascular - [facility] [address] [facility] 160 [place] [address] Valdez Frey MD [address] [facility] 2014 [place] [address] 10/24/2025 9:00 AM REGISTRATION SPECIALIST Appointment [facility] Imaging Services [facility] 125 [place] [address] Anjana Rojo PA-C [address] [facility] 280 [place] [address] 02/28/2026 11:00 AM CDT Office Visit [facility] Primary Care Namrata Ruffin N [facility] [address] [facility] [place] [address] [place] [address] Jamie [facility] 280 [place] [address] 09/01/2026 11:00 AM REGISTRATION SPECIALIST Office Visit [facility] Namrata Ruffin N [facility] [address] [place] [address] [place] [address] Gilber[address] Ayala [facility] 280 [place] [address] documented as of this encounter Visit Diagnoses Not on filedocumented in this encounter Care Teams Commercial Internship Relationship Specialty Start [place] [address] Gilberto Ayala [facility] 280 [place] [address] PCP - General Internal Medicine 08/25/24 documented as of this encounter
--- OUTSIDE RECORDS SUMMARY | 2025-09-13 08:27 | XMS_ITS | Encounter Summary ---
Author Organization [facility] Address [address] [place] [address] Care Team Providers Care Linemarker Name Role Phone Mimi Fernandez MD Primary Care Provider [phone] Encounter Details Date Type Department Care Team (Latest Contact Info) Description 04/20/2001 Outpatient Historical [facility] Jaya Roper MD NO ADDRESS ON FILE Cervicalgia (Primary Dx) Social History Tobacco Use Types Packs/Day Years Used Date Smoking Tobacco: Never Assessed Sex and Gender Information Value Date Recorded Sex Assigned at Not on file 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 GOLF COURSE STARTER Gender Identity Not on file Sexual Orientation Not on file documented as of this encounter Plan of Treatment Upcoming Encounters Date Type Department Care Team (Late st Contact Info) Description 10/12/2025 9:30 AM GOLF COURSE STARTER Office Visit [facility] Heart and Vascular - [facility] [address] [facility] [address] [place] [address] Valdez Frey MD [address] [facility] 2014 [place] [address] 10/24/2025 9:00 AM GOLF COURSE STARTER Appointment [facility] 125 [place] [address] Anjana Rojo PA-C [address] [facility] 280 [place] [address] 02/28/2026 11:00 AM CDT Office Visit [facility] Primary Care [place] [address] [place] [address] [place] [address] Gilberto Ayala [facility] 280 [place] [address] 09/01/2026 11:00 AM GOLF COURSE STARTER Office Visit [facility] Primary Care [place] N [facility] [address] [facility] [place] [address] [place] [address] Gilberto Ayala [facility] 280 [place] [address] documented as of this encounter Visit Diagnoses Diagnosis Cervicalgia- Primary documented in this encounter Care Teams Linemarker Relationship Specialty [place] [address] Gilberto Ayala [address] [address] PCP - General Internal Medicine 08/25/24 documented as of this encounter
--- OUTSIDE RECORDS SUMMARY | 2025-09-13 08:27 | XMS_ITS | Encounter Summary ---
Author Organization [facility] Address [address] [place] [address] Care Team Providers Care Slunk Skin Curer Name Role Phone Mimi Fernandez MD Primary Care Provider [phone] Encounter Details Date Type Department Care Team (Latest Contact Info) Description 11/25/2001 Outpatient Historical [facility] Jaya Roper MD NO ADDRESS ON FILE SKIN SENSATION DISTURB (Primary Dx) Social History Tobacco Use Types Packs/Day Years Used Date Smoking Tobacco: Never Assessed Sex and Gender Information Value Date Recorded Sex Assigned at Not on file 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 STORAGE BATTERY CHARGER Gender Identity Not on file Sexual Orientation Not on file documented as of this encounter Plan of Treatment Upcoming Encounters Date Type Department Care Team (Late st Contact Info) Description 10/12/2025 9:30 AM STORAGE BATTERY CHARGER Office Visit [facility] Heart and Vascular - [facility] [address] [facility] [address] [place] [address] Valdez Frey MD [address] [facility] 2014 [place] [address] 10/24/2025 9:00 AM STORAGE BATTERY CHARGER Appointment [facility] Imaging Services [facility] 125 [place] [address] Anjana Rojo PA-C [address] [facility] 280 [place] [address] 02/28/2026 11:00 AM CDT Office Visit [facility] Primary Care [place] [address] [place] [address] [place] [address] Gilberto Ayala [facility] 280 [place] [address] 09/01/2026 11:00 AM STORAGE BATTERY CHARGER Office Visit [facility] Primary Care [place] [address] [place] [address] [place] [address] Gilberto Ayala [address] [address] documented as of this encounter Visit Diagnoses Diagnosis Disturbance of skin sensation- Primary documented in this encounter Care Teams Slunk Skin Curer Relationship Specialty [place] [address] Gilberto Ayala [address] [phone] PCP - General Internal Medicine 08/25/24 documented as of this encounter
--- OUTSIDE RECORDS SUMMARY | 2025-09-13 08:27 | XMS_ITS | Encounter Summary ---
Author Organization [facility] Address [address] [place] [address] Care Team Providers Care Shake Table Operator Name Role Phone Mimi Fernandez MD Primary Care Provider [phone] Encounter Details Date Type Department Care Team (Latest Contact Info) Description 06/23/2006 Outpatient Historical [facility] Primary Care - [facility] [address] [facility] [address] [place] [address] Jaya Roper MD NO ADDRESS ON FILE Other and Unspecified Hyperlipidemia (Primary Dx) Social History Tobacco Use Types Packs/Day Years Used Date Smoking Tobacco: Never Assessed Sex and Gender Information Value Date Recorded Sex Assigned at Not on file 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 CRITICAL CARE CLINICAL NURSE SPECIALIST Gender Identity Not on file Sexual Orientation Not on file documented as of this encounter Plan of Treatment Upcoming Encounters Date Type Department Care Team (Late st Contact Info) Description 10/12/2025 9:30 AM CRITICAL CARE CLINICAL NURSE SPECIALIST Office Visit [facility] Heart and Vascular - [facility] [address] [facility] 160 [place] [address] Valdez Frey MD [address] [place] [address] 10/24/2025 9:00 AM CRITICAL CARE CLINICAL NURSE SPECIALIST Appointment [facility] Imaging Services [facility] 125 [place] [address] Anjana Rojo PA-C [address] [facility] [address] [facility] 280 [place] [address] 02/28/2026 11:00 AM CDT Office Visit [facility] Care [place] N [facility] [address] [place] [address] [place] [address] Starke [facility] 280 [place] [address] 09/01/2026 11:00 AM CRITICAL CARE CLINICAL NURSE SPECIALIST Office Visit [facility] Care [place] N [facility] [address] [place] [address] [place] [address] [facility] 280 [place] [address] documented as of this encounter [...] ORDERABLES Final R esult Performing Organization Address [facility] Co al Phone Number INTERFACE SYSTEM Refer to clinic/hospital [...] ORDERABLES Final R esult Performing Organization Address [facility] Phone Number INTERFACE SYSTEM Refer to clinic/hospital department * TSH REFLEXIVE (06/23/2006 3:26 PM CDT) TSH 3.50 0.27 - 4.20 uU/mL INTERFACE SYSTEM 06/23/2006 3:26 PM CDT us Jaya Roper MD CHEMISTRY ORDERABLES Final Re sult Performing Organization Address City/[facility] Co al Phone Number INTERFACE SYSTEM Refer to clinic/hospital [...] classifications for lipids are available on the [facility] Intranet at: [email or web address] Select: Lab Policies and Procedures Select: Reference Ranges - Lipids 06/23/2006 3:26 PM CDT Jaya Roper MD CHEMISTRY ORDERABLES Final Re sult Performing Organization Address City/[facility] Co de Phone Number INTERFACE SYSTEM Refer to clinic/hospital department * PSA (06/23/2006 3:26 PM CDT) PSA 1.1 0.0 - 4.0 ng/mL INTERFACE SYSTEM Comment:Performed on [employer] E170 System 06/23/2006 3:26 PM CDT us Jaya Roper MD CHEMISTRY ORDERABLES Final Re sult Performing Organization Address City/[facility]/ZIP Co de Phone Number INTERFACE SYSTEM Refer to clinic/hospital department documented in this encounter Visit Diagnoses Diagnosis Other and unspecified hyperlipidemia- Primary documented in this encounter Care Teams Shake Table Operator Relationship Specialty [place] [address] [facility] [address] [place] [address] [phone] PCP - General Internal Medicine 08/25/24 documented as of this encounter
--- OUTSIDE RECORDS SUMMARY | 2025-09-13 08:27 | XMS_ITS | Encounter Summary ---
Author Organization [facility] Address [address] [place] [address] Care Team Providers Care Puff Iron Operator Name Role Phone Mimi Fernandez MD Primary Care Provider [phone] Encounter Details Date Type Department Care Team (Late st Contact Info) Description 05/06/2005 Outpatient Historical [facility] Primary Care - [facility] [address] [facility] [address] [place] [address] Jaya Roper MD NO ADDRESS ON FILE Social History Tobacco Use Types Packs/Day Years Used Date Smoking Tobacco: Never Assessed Sex and Gender Information Value Date Recorded Sex Assigned at Not on file 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 STRATEGIC ALLIANCES MANAGER Gender Identity Not on file Sexual Orientation Not on file documented as of this encounter Plan of Treatment Upcoming Encounters Date Type Department Care Team (Late st Contact Info) Description 10/12/2025 9:30 AM STRATEGIC ALLIANCES MANAGER Office Visit [facility] Heart and Vascular - [facility] [address] [facility] 160 [place] [address] Valdez Frey MD [address] [facility] 2014 [place] [address] 10/24/2025 9:00 AM STRATEGIC ALLIANCES MANAGER Appointment [facility] Imaging Services [facility] 125 [place] [address] Anjana Rojo PA-C [address] [facility] 280 [place] [address] 02/28/2026 11:00 AM CDT Office Visit [facility] Primary Care [place] N [facility] [address] [facility] [place] [address] [place] [address] Jamie [facility] 280 [place] [address] 09/01/2026 11:00 AM STRATEGIC ALLIANCES MANAGER Office Visit [facility] Care [place] N [facility] [address] [place] [address] [place] [address] Gilberto Ayala [facility] 280 [place] [address] documented as of this encounter Visit Diagnoses Not on filedocumented in this encounter Care Teams Puff Iron Operator Relationship Specialty [place] [address] Gilberto Ayala [facility] 280 [place] [address] PCP - General Internal Medicine 08/25/24 documented as of this encounter
--- OUTSIDE RECORDS SUMMARY | 2025-09-13 08:27 | XMS_ITS | Encounter Summary ---
Author Organization [facility] Address [address] [place] [address] Care Team Providers Care Apprentice Embalmer Name Role Phone Mimi Fernandez MD Primary Care Provider [phone] Encounter Details Date Type Department Care Team (Late st Contact Info) Description 06/05/2005 Outpatient Historical [facility]) [address] [place] [address] [place] [address] [facility] [address] [place] [address] Social History Tobacco Use Types Packs/Day Years Used Date Smoking Tobacco: Never Assessed Sex and Gender Information Value Date Recorded Sex Assigned at Not on file 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 CHILLING HOOD OPERATOR Gender Identity Not on file Sexual Orientation Not on file documented as of this encounter Plan of Treatment Upcoming Encounters Date Type Department Care Team (Late Contact Info) Description 10/12/2025 9:30 AM CHILLING HOOD OPERATOR Office Visit [facility] [address] [facility] [address] [place] [address] Valdez Frey MD [address] [facility] 2015 [place] [address] 10/24/2025 9:00 AM CHILLING HOOD OPERATOR Appointment [facility] Imaging Services [facility] 125 [place] [address] Anjana Rojo PA-C [address] [address] 02/28/2026 11:00 AM CDT Office Visit [facility] Primary Care [place] N [facility] [address] [place] [address] [place] [address] [place]ias [place] [address] [address] 09/01/2026 11:00 AM CHILLING HOOD OPERATOR Office Visit [facility] Primary Care [place] N [facility] [address] [facility] [place] [address] [place] [address] Gilberto Ayala [address] [address] documented as of this encounter Visit Diagnoses Not on filedocumented in this encounter Care Teams Apprentice Embalmer Relationship Specialty [place] [address] [place] [address] [address] PCP - General Internal Medicine 08/25/24 documented as of this encounter
--- OUTSIDE RECORDS SUMMARY | 2025-09-13 08:27 | XMS_ITS | Encounter Summary ---
Author Organization [facility] Address [address] [place] [address] Care Team Providers Care Monogram Machine Operator Name Role Phone Mimi Fernandez MD Primary Care Provider [phone] Encounter Details Date Type Department Care Team (Late st Contact Info) Description 01/19/2007 Outpatient Historical [facility] Primary Care - [facility] [address] [facility] [address] [place] [address] Jaya Roper MD NO ADDRESS ON FILE Social History Tobacco Use Types Packs/Day Years Used Date Smoking Tobacco: Never Assessed Sex and Gender Information Value Date Recorded Sex Assigned at Not on file 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 SPOT MACHINE OPERATOR Gender Identity Not on file Sexual Orientation Not on file documented as of this encounter Plan of Treatment Upcoming Encounters Date Type Department Care Team (Late st Contact Info) Description 10/12/2025 9:30 AM SPOT MACHINE OPERATOR Office Visit [facility] Heart and Vascular - [facility] [address] [facility] 160 [place] [address] Valdez Frey MD [address] [facility] 2014 [place] [address] 10/24/2025 9:00 AM SPOT MACHINE OPERATOR Appointment [facility] Imaging Services [facility] 125 [place] [address] Anjana Rojo PA-C [address] [facility] 280 [place] [address] 02/28/2026 11:00 AM CDT Office Visit [facility] Primary Care [place] N [facility] [address] [facility] [place] [address] [place] [address] Jamie [facility] 280 [place] [address] 09/01/2026 11:00 AM SPOT MACHINE OPERATOR Office Visit [facility] Care [place] N [facility] [address] [place] [address] [place] [address] Gilberto Ayala [facility] 280 [place] [address] documented as of this encounter Visit Diagnoses Not on filedocumented in this encounter Care Teams Monogram Machine Operator Relationship Specialty [place] [address] Gilberto Ayala [facility] 280 [place] [address] PCP - General Internal Medicine 08/25/24 documented as of this encounter
--- OUTSIDE RECORDS SUMMARY | 2025-09-13 08:27 | XMS_ITS | Encounter Summary ---
Author Organization [facility] Address [address] [place] [address] Care Team Providers Care Director Critical Care Name Role Phone Mimi Fernandez MD Primary Care Provider [phone] Encounter Details Date Type Department Care Team (Late st Contact Info) Description 04/13/2001 Outpatient Historical [facility] Primary Care - [facility] [address] [facility] [address] [place] [address] Jaya Roper MD NO ADDRESS ON FILE Social History Tobacco Use Types Packs/Day Years Used Date Smoking Tobacco: Never Assessed Sex and Gender Information Value Date Recorded Sex Assigned at Not on file 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 LITIGATION SECRETARY Gender Identity Not on file Sexual Orientation Not on file documented as of this encounter Plan of Treatment Upcoming Encounters Date Type Department Care Team (Late st Contact Info) Description 10/12/2025 9:30 AM LITIGATION SECRETARY Office Visit [facility] Heart and Vascular - [facility] [address] [facility] 160 [place] [address] Valdez Frey MD [address] [facility] 2014 [place] [address] 10/24/2025 9:00 AM LITIGATION SECRETARY Appointment [facility] Imaging Services [facility] 125 [place] [address] Anjana Rojo PA-C [address] [facility] 280 [place] [address] 02/28/2026 11:00 AM CDT Office Visit [facility] Primary Care [place] N [facility] [address] [facility] [place] [address] [place] [address] Jamie [facility] 280 [place] [address] 09/01/2026 11:00 AM LITIGATION SECRETARY Office Visit [facility] Care [place] Ruffin N [facility] [address] [place] [address] [place] [address] Gilberto Ayala [facility] 280 [place] [address] documented as of this encounter Visit Diagnoses Not on filedocumented in this encounter Care Teams Director Critical Care Relationship Specialty [place] [address] Gilberto Ayala [facility] 280 [place] [address] PCP - General Internal Medicine 08/25/24 documented as of this encounter
--- OUTSIDE RECORDS SUMMARY | 2025-09-13 08:27 | XMS_ITS | Encounter Summary ---
Author Organization [facility] Address [address] [place] [address] Care Team Providers Care Crown Pouncer Name Role Phone Mimi Fernandez MD Primary Care Provider [phone] Encounter Details Date Type Department Care Team (Late st Contact Info) Description 05/06/[address] [facility] Primary Care - [facility] 755 [facility] [address] [place] [address] Jaya Roper MD NO ADDRESS ON FILE Social History Tobacco Use Types Packs/Day Years Used Date Smoking Tobacco: Never Assessed Sex and Gender Information Value Date Recorded Sex Assigned at Not on file 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 KNUCKLER Gender Identity Not on file Sexual Orientation Not on file documented as of this encounter Plan of Treatment Upcoming Encounters Date Type Department Care Team (Late st Contact Info) Description 10/12/2025 9:30 AM KNUCKLER Office Visit [facility] Heart and Vascular - [facility] [address] [facility] 160 [place] [address] Valdez Frey MD [address] [facility] 2014 [place] [address] 10/24/2025 9:00 AM KNUCKLER Appointment [facility] Imaging Services [facility] 125 [place] [address] Anjana Rojo PA-C [address] [facility] 280 [place] [address] 02/28/2026 11:00 AM CDT Office Visit [facility] Primary Care [place] N [facility] [address] [address] [facility] [place] [address] [place] [address] Jamie [facility] 280 [place] [address] 09/01/2026 11:00 AM KNUCKLER Office Visit [facility] Care Nam[place]uff[place] N [facility] [address] [address] [place] [address] Gilberto Ayala [facility] 280 [place] [address] documented as of this encounter Visit Diagnoses Not on filedocumented in this encounter Care Teams Crown Pouncer Relationship Specialty [place] [address] Gilberto Ayala [facility] 280 [place] [address] PCP - General Internal Medicine 08/25/24 documented as of this encounter
[2025-09-13 08:35] VITALS: BP 163/72; PULSE 65; RESP 16; TEMP 36.4; O2SAT 99
[2025-09-13 11:49] LABS: Hematocrit 37.7 % (42.0-52.0); Hemoglobin 11.7 g/dL (14.0-18.0); Mean Corpuscular HGB Conc 31.0 g/dl (32-36); Mean Corpuscular Hemoglobin 25.9 pg (26-34); Mean Corpuscular Volume 83.4 fl (80-100); Platelet Count Result 216 k/mm3 (150-375); Red Blood Count 4.52 M/mm3 (4.6-6.20); White Blood Count 5.9 K/mm3 (4.5-10.0)
[2025-09-13 11:52] LABS: Add Urine Microscopic? NO; Appearance Urine Clear (Clear); Glucose Urine UA Negative (Negative); Leukocyte Esterase Ur Negative LEU/UL (Negative); Nitrate Urine Negative (Negative); Specific Grav Ur 1.014 (1.001-1.035)
--- OUTSIDE RECORDS SUMMARY | 2025-09-13 12:04 | XMS_ITS | Encounter Summary ---
Author Organization [facility] Address [address] [place] [address] Care Team Providers Care Brass Burnisher Name Role Phone Mimi Feranndez MD Primary Care Provider [phone] Encounter Details Date Type Department Care Team (Late st Contact Info) Description 06/23/2006 Orders Only [facility] Primary Care - [address] [place] [address] Jaya Roper MD NO ADDRESS ON FILE Social History Tobacco Use Types Packs/Day Years Used Date Smoking Tobacco: Never Assessed Sex and Gender Information Value Date Recorded Sex Assigned at Not on file 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 LEATHER PRODUCTS SUPERVISOR Gender Identity Not on file Sexual [...] extremity. ASSESSMENT Onychomycosis 110.1. NEUROLOGIC: CRANIAL NERVES: spanish interpreter/translator II-XII grossly intact. DEEP TENDON REFLEXES: Deep tendon reflexes 2+/4 and symmetrical. 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 272.4-HYPERLIPIDEMIA very mild changes do not require intervention now. LAB ORDERS: Order number: [id number] Test Ordered: TSH (REFLEX FREE T4/FREE T3) 1727 Order number: [id number] Test Ordered: LIPID PANEL 1078 783.21-ABNORMAL LOSS OF WEIGHT probably just a variation,but it is not clearly explained, so will check some lab. LAB ORDERS: Order number: [id number] Test Ordered: CBC W/ DIFFERENTIAL 3150 702.19-SEBORRHEIC KERATOSIS area treated with liquid nitrogen on left nondenominational V76.44-SCREEN FOR CA OF PROSTATE LAB ORDERS: Order number: [id number] Test Ordered: PSA, TOTAL 1002 550.91-INGUINAL HERNIA [...] st Contact Info) Description 10/12/2025 9:30 AM LEATHER PRODUCTS SUPERVISOR Office Visit [facility] Heart and Vascular - [facility] [address] [place] [address] Valdez Frey MD [address] [facility] 2015 [place] [address] 10/24/2025 9:00 AM LEATHER PRODUCTS SUPERVISOR Appointment [facility] Imaging Services [facility] [address] [place] [address] Anjana Rojo PA-C [address] [address] 02/28/2026 11:00 AM CDT Office Visit [facility] Primary Care Namrata Ruffin [facility] [address] [facility] [place] [address] [place] [address] Ay[address] [address] 09/01/2026 11:00 AM LEATHER PRODUCTS SUPERVISOR Office Visit [facility] Primary Care Namrata Ruffin [facility] [address] [facility] [place] [address] [place] [address] Gilberto Ayala [address] [address] documented as of this encounter Visit Diagnoses Not on filedocumented in this encounter Care Teams Brass Burnisher Relationship Specialty [place] [address] Ay[address] [address] PCP - General Internal Medicine 08/25/24 documented as of this encounter
--- OUTSIDE RECORDS SUMMARY | 2025-09-13 12:04 | XMS_ITS | Encounter Summary ---
Author Organization [facility] Address [address] [place] [address] Care Team Providers Care Building Custodian Name Role Phone Mimi Fernandez MD Primary Care Provider [phone] Encounter Details Date Type Department Care Team (Late st Contact Info) Description 10/07/2002 Outpatient Historical [facility] Primary Care - [facility] 755 [facility] [address] [place] [address] Jaya Roper MD NO ADDRESS ON FILE Social History Tobacco Use Types Packs/Day Years Used Date Smoking Tobacco: Never Assessed Sex and Gender Information Value Date Recorded Sex Assigned at Not on file 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 DIGITAL CAMPAIGN MANAGER Gender Identity Not on file Sexual Orientation Not on file documented as of this encounter Plan of Treatment Upcoming Encounters Date Type Department Care Team (Late st Contact Info) Description 10/12/2025 9:30 AM DIGITAL CAMPAIGN MANAGER Office Visit [facility] Heart and Vascular - [facility] [address] [facility] 160 [place] [address] Valdez Frey MD [address] [facility] 2014 [place] [address] 10/24/2025 9:00 AM DIGITAL CAMPAIGN MANAGER Appointment [facility] Imaging Services [facility] 125 [place] [address] Anjana Rojo PA-C [address] [facility] 280 [place] [address] 02/28/2026 11:00 AM CDT Office Visit [facility] Primary Care Namrata Ruffin [address] [facility] [address] [facility] [place] [address] [place] [address] Jamie [facility] 280 [place] [address] 09/01/2026 11:00 AM DIGITAL CAMPAIGN MANAGER Office Visit [facility] Care Namrata Ruffin N [facility] [address] [place] [address] [place] [address] Gilberto Ayala [facility] 280 [place] [address] documented as of this encounter Visit Diagnoses Not on filedocumented in this encounter Care Teams Building Custodian Relationship Specialty [place] [address] Gilberto Ayala [facility] 280 [place] [address] PCP - General Internal Medicine 08/25/24 documented as of this encounter
--- OUTSIDE RECORDS SUMMARY | 2025-09-13 12:04 | XMS_ITS | Encounter Summary ---
Author Organization [facility] Address [address] [place] [address] Care Team Providers Care Taxi Servicer Name Role Phone Mimi Fernandez MD Primary Care Provider [phone] Encounter Details Date Type Department Care Team (Latest Contact Info) Description 01/19/2007 [facility] NO ADDRESS ON FILE Cough (Primary Dx) Social History Tobacco Use Types Packs/Day Years Used Date Smoking Tobacco: Never Assessed Sex and Gender Information Value Date Recorded Sex Assigned at Not on file 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 MANAGER SWITCH Gender Identity Not on file Sexual Orientation Not on file documented as of this encounter Plan of Treatment Upcoming Encounters Date Type Department Care Team (Late st Contact Info) Description 10/12/2025 9:30 AM MANAGER SWITCH Office Visit [facility] Heart and Vascular - [facility] [address] [facility] [address] [place] [address] Valdez Frey MD [address] [facility] 2014 [place] [address] 10/24/2025 9:00 AM MANAGER SWITCH Appointment [facility] Imaging Services [facility] 125 [place] [address] Anjana Rojo PA-C [address] [facility] 280 [place] [address] 02/28/2026 11:00 AM CDT Office Visit [facility] Primary Care [place] [address] [place] [address] [place] [address] Gilberto Ayala [facility] 280 [place] [address] 09/01/2026 11:00 AM MANAGER SWITCH Office Visit [facility] Primary Care Namrata Flores [facility] [address] [place] [address] [place] [address] Gilberto Ayala [address] [address] documented as of this encounter Visit Diagnoses Diagnosis Cough- Primary documented in this encounter Care Teams Taxi Servicer Relationship Specialty [place] [address] Gilber[address] Ayala [address] [address] PCP - General Internal Medicine 08/25/24 documented as of this encounter
--- OUTSIDE RECORDS SUMMARY | 2025-09-13 12:04 | XMS_ITS | Encounter Summary ---
Author Organization [facility] Address [address] [place] [address] Care Team Providers Care Batch Room Technician Name Role Phone Mimi Fernandez MD Primary Care Provider [phone] Encounter Details Date Type Department Care Team (Latest Contact Info) Description 11/25/2001 Outpatient Historical [facility] Jaya Roper MD NO ADDRESS ON FILE SKIN SENSATION DISTURB (Primary Dx) Social History Tobacco Use Types Packs/Day Years Used Date Smoking Tobacco: Never Assessed Sex and Gender Information Value Date Recorded Sex Assigned at Not on file 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 WELDER TECH Gender Identity Not on file Sexual Orientation Not on file documented as of this encounter Plan of Treatment Upcoming Encounters Date Type Department Care Team (Late st Contact Info) Description 10/12/2025 9:30 AM WELDER TECH Office Visit [facility] Heart and Vascular - [facility] [address] [facility] [address] [place] [address] Valdez Frey MD [address] [facility] 2014 [place] [address] 10/24/2025 9:00 AM WELDER TECH Appointment [facility] Imaging Services [facility] 125 [place] [address] Anjana Rojo PA-C [address] [facility] 280 [place] [address] 02/28/2026 11:00 AM CDT Office Visit [facility] Primary Care [place] [address] [place] [address] [place] [address] Gilberto Ayala [facility] 280 [place] [address] 09/01/2026 11:00 AM WELDER TECH Office Visit [facility] Primary Care Namrata Ruffin [address] [place] [address] [place] [address] Gilberto Ayala [address] [address] documented as of this encounter Visit Diagnoses Diagnosis Disturbance of skin sensation- Primary documented in this encounter Care Teams Batch Room Technician Relationship Specialty [place] [address] Gilberto Ayala [address] [address] PCP - General Internal Medicine 08/25/24 documented as of this encounter
--- OUTSIDE RECORDS SUMMARY | 2025-09-13 12:04 | XMS_ITS | Encounter Summary ---
Author Organization [facility] Address [address] [place] [address] Care Team Providers Care Nurse Reviewer Name Role Phone Mimi Fernandez MD Primary Care Provider [phone] Encounter Details Date Type Department Care Team (Latest Contact Info) Description 06/05/2005 Outpatient Historical [facility] Jaya Roper MD NO ADDRESS ON FILE DIZZINESS AND GIDDINESS (Primary Dx) Social History Tobacco Use Types Packs/Day Years Used Date Smoking Tobacco: Never Assessed Sex and Gender Information Value Date Recorded Sex Assigned at Not on file 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 MOBILE HOME LOT UTILITY WORKER Gender Identity Not on file Sexual Orientation Not on file documented as of this encounter Plan of Treatment Upcoming Encounters Date Type Department Care Team (Late st Contact Info) Description 10/12/2025 9:30 AM MOBILE HOME LOT UTILITY WORKER Office Visit [facility] Heart and Vascular - [facility] [address] [facility] [address] [place] [address] Valdez Frey MD [address] [facility] 2014 [place] [address] 10/24/2025 9:00 AM MOBILE HOME LOT UTILITY WORKER Appointment [facility] Imaging Services [facility] 125 [place] [address] Anjana Rojo PA-C [address] [facility] 280 [place] [address] 02/28/2026 11:00 AM CDT Office Visit [facility] Primary Care [place] [address] [place] [address] [place] [address] Gilberto Ayala [address] [address] 09/01/2026 11:00 AM MOBILE HOME LOT UTILITY WORKER Office Visit [facility] Primary Care Namrata Flores [facility] [address] [place] [address] [place] [address] Gilberto Ayala [address] [address] documented as of this encounter Visit Diagnoses Diagnosis Dizziness and giddiness- Primary documented in this encounter Care Teams Nurse Reviewer Relationship Specialty [place] [address] Gilberto Ayala [address] [address] PCP - General Internal Medicine 08/25/24 documented as of this encounter
--- OUTSIDE RECORDS SUMMARY | 2025-09-13 12:04 | XMS_ITS | Encounter Summary ---
Author Organization [facility] Address [address] [place] [address] Care Team Providers Care Licensed Acupuncturist Name Role Phone Mimi Fernandez MD Primary Care Provider Encounter Details Date Type Department Care Team (Late st Contact Info) Description 02/10/2001 Outpatient Historical [facility] 755 [facility] [address] [place] [address] Jaya Roper MD NO ADDRESS ON FILE Social History Tobacco Use Types Packs/Day Years Used Date Smoking Tobacco: Never Assessed Sex and Gender Information Value Date Recorded Sex Assigned at Not on file 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 ABLE BODIED WATCHMAN Gender Identity Not on file Sexual Orientation Not on file documented as of this encounter Plan of Treatment Upcoming Encounters Date Type Department Care Team (Late st Contact Info) Description 10/12/2025 9:30 AM ABLE BODIED WATCHMAN Office Visit [facility] Heart and V[facility] - [facility] [address] [facility] 160 [place] [address] Valdez Frey MD [address] [facility] 2014 [place] [address] 10/24/2025 9:00 AM ABLE BODIED WATCHMAN Appointment [facility] Imaging Services [facility] 125 [place] [address] Anjana Rojo PA-C [address] [facility] 280 [place] [address] 02/28/2026 11:00 AM CDT Office Visit [facility] Primary Care Namrata Ruffin [address] [facility] [address] [facility] [place] [address] [place] [address] [address] Jamie [facility] 280 [place] [address] 09/01/2026 11:00 AM ABLE BODIED WATCHMAN Office Visit [facility] Care Namrata Ruffin N [facility] [address] [place] [address] [place] [address] Gilberto Ayala [facility] 280 [place] [address] documented as of this encounter Visit Diagnoses Not on filedocumented in this encounter Care Teams Licensed Acupuncturist Relationship Specialty [place] [address] Gilberto Ayala [facility] 280 [place] [address] PCP - General Internal Medicine 08/25/24 documented as of this encounter
--- OUTSIDE RECORDS SUMMARY | 2025-09-13 12:04 | XMS_ITS | Encounter Summary ---
Author Organization [facility] Address [address] [place] [address] Care Team Providers Care Route Sales Driver Name Role Phone Mimi Fernandez MD Primary Care Provider [phone] Encounter Details Date Type Department Care Team (Latest Contact Info) Description 06/30/2007 Outpatient Historical [facility] Primary Care - [facility] 755 [facility] [address] [place] [address] Jaya Roper MD NO ADDRESS ON FILE Other and Unspecified Hyperlipidemia (Primary Dx) Social History Tobacco Use Types Packs/Day Years Used Date Smoking Tobacco: Never Assessed Sex and Gender Information Value Date Recorded Sex Assigned at Not on file 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 STEAM DISTRIBUTION SUPERVISOR Gender Identity Not on file Sexual Orientation Not on file documented as of this encounter Plan of Treatment Upcoming Encounters Date Type Department Care Team (Late st Contact Info) Description 10/12/2025 9:30 AM STEAM DISTRIBUTION SUPERVISOR Office Visit [facility] Heart and Vascular - [facility] [address] [facility] 160 [place] [address] Valdez Frey MD [address] [facility] [address] [place] [address] 10/24/2025 9:00 AM STEAM DISTRIBUTION SUPERVISOR Appointment [facility] Imaging Services [facility] 125 [place] [address] Anjana Rojo PA-C [address] [facility] 280 [place] [address] 02/28/2026 11:00 AM CDT Office Visit [facility] Care [address] Ruff[address] [place] [address] [place] [address] [place] [facility] [address] [place] [address] 09/01/2026 11:00 AM STEAM DISTRIBUTION SUPERVISOR Office Visit [facility] Care Namrata Ruffin N [facility] [address] [place] [address] [place] [address] [facility] [address] [place] [address] documented as of this encounter [...] MD CHEMISTRY ORDERABLES Edited Performing Organization Address City/[facility] Co de Phone Number INTERFACE SYSTEM Refer [...] classifications for lipids are available on the [facility] Intranet at: [email or web address] Select: Lab Policies and Procedures,Current Select: Lipid Panel Interpretation 06/30/2007 5:59 PM CDT us Jaya Roper MD CHEMISTRY ORDERABLES Edited Performing Organization Address [facility] Co de Phone Number INTERFACE SYSTEM Refer to clinic/hospital department * PSA (06/30/2007 5:59 PM CDT) PSA 1.4 0.0 - 4.0 ng/mL INTERFACE SYSTEM Comment:Performed on TeraDiodeular E170 System 06/30/2007 5:59 PM CDT us Jaya Roper MD CHEMISTRY ORDERABLES Edited INTERFACE SYSTEM Refer to clinic/hospital department documented in this encounter Visit Diagnoses Diagnosis Other and unspecified hyperlipidemia- Primary documented in this encounter Care Teams Route Sales Driver Relationship Specialty [place] [address] Gilberto Ayala [facility] [address] [place] [address] PCP - General Internal Medicine 08/25/24 documented as of this encounter
--- OUTSIDE RECORDS SUMMARY | 2025-09-13 12:04 | XMS_ITS | Encounter Summary ---
Author Organization [facility] Address [address] [place] [address] Care Team Providers Care Quilt Sewer Name Role Phone Mimi Fernandez MD Primary Care Provider [phone] Encounter Details Date Type Department Care Team (Latest Contact Info) Description 03/23/[address] [facility] Primary Care - [facility] 755 [facility] [address] [place] [address] Jaya Roper MD NO ADDRESS ON FILE Cor Athrscl-Uns Vessel Social History Tobacco Use Types Packs/Day Years Used Date Smoking Tobacco: Never Assessed Sex and Gender Information Value Date Recorded Sex Assigned at Not on file 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 FLAME ANNEALING MACHINE SETTER Gender Identity Not on file Sexual Orientation Not on file documented as of this encounter Plan of Treatment Upcoming Encounters Date Type Department Care Team (Late st Contact Info) Description 10/12/2025 9:30 AM FLAME ANNEALING MACHINE SETTER Office [facility] Heart and Vascular - [facility] [address] [facility] 160 [place] [address] Valdez Frey MD [address] [facility] 2014 [place] [address] 10/24/2025 9:00 AM FLAME ANNEALING MACHINE SETTER Appointment [facility] Imaging Services [facility] 125 [place] [address] Anjana Rojo PA-C [address] [facility] 280 [place] [address] 02/28/2026 11:00 AM CDT Office Visit [facility] Primary Care Namrata Ruffin [address] [address] [place] [address] [place] [address] Desouzaer Gabe [address] [place] [address] 09/01/2026 11:00 AM FLAME ANNEALING MACHINE SETTER Office [facility] Primary Care [address] [place] [address] [place] [address] Ayala [facility] 280 [place] [address] documented as of this encounter Procedures Procedure Name Priority Date/Time Associated Diagnosis Comments HEPATIC FUNCTION PANEL Routine 03/23/2008 8:03 AM CDT LIPID PANEL Routine 03/23/2008 8:03 AM CDT documented in this encounter Results * (ABNORMAL) LIPID PANEL (03/23/2008 8:03 AM CDT) TRIGLYCERIDE 222(H) 10 - 149 mg/dL [facility] HDL 36(L) 40 - 59 mg/dL [facility] CHOL/HDL RATIO 3.6 2.0 - 5.0 [facility] CHOLESTEROL 130 100 - 199 mg/dL [facility] LDL CALCULATED 50 <=99 mg/dL [facility] LIPID PANEL COMMENT See Below [facility] Comment: The adult ATP and pediatric NCEP classifications for lipids are available on the [facility] Intranet at: [email or web address] Select: Lab Policies and Procedures,Current Select: Lipid Panel Interpretation Blood specimen (specimen) 03/23/2008 8:03 AM CDT 03/23/2008 10:31 AM CDT Jaya Roper MD CHEMISTRY ORDERABLES Edited Performing Organization Address City/[facility]/ZIP Co de Phone Number [facility] CLIA# [id number] [address] [place] [address] * HEPATIC FUNCTION PANEL (03/23/2008 8:03 AM CDT) BILIRUBIN TOTAL 0.4 0.2 - 1.0 mg/dL [facility] ALKALINE PHOSPHATASE 92 40 - 129 U/L [facility] BILIRUBIN DIRECT 0.1 0.0 - 0.3 mg/dL [facility] TOTAL PROTEIN 7.4 6.3 - 8.6 g/dL [facility] AST 24 12 - 38 U/L [facility] ALBUMIN 4.7 3.4 - 4.8 g/dL [facility] ALT 19 0 - 41 U/L [facility] Blood specimen (specimen) 03/23/2008 8:03 AM CDT 03/23/2008 10:31 AM CDT Jaya Roper MD CHEMISTRY ORDERABLES Final Re sult Performing Organization Address City/[facility] Co de Phone Number [facility] CLIA# [id number] [address] [place] [address] documented in this encounter Visit Diagnoses Diagnosis Coronary atherosclerosis of unspecified type of vessel, [place] or graft documented in this encounter Care Teams Quilt Sewer Relationship Specialty [place] [address] [address] [facility] [address] Gilberto Ayala [address] [address] PCP - General Internal Medicine 08/25/24 documented as of this encounter
--- OUTSIDE RECORDS SUMMARY | 2025-09-13 12:04 | XMS_ITS | Encounter Summary ---
Author Organization [facility] Address [address] [place] [address] Care Team Providers Care Sink Cutter Name Role Phone Mimi Fernandez MD Primary Care Provider Encounter Details Date Type Department Care Team (Late st Contact Info) Description 01/19/2007 Outpatient Historical [facility] Primary Care - [facility] [address] [facility] [address] [place] [address] Jaya Roper MD NO ADDRESS ON FILE Social History Tobacco Use Types Packs/Day Years Used Date Smoking Tobacco: Never Assessed Sex and Gender Information Value Date Recorded Sex Assigned at Not on file 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 NURSING INSTRUCTOR Gender Identity Not on file Sexual Orientation Not on file documented as of this encounter Plan of Treatment Upcoming Encounters Date Type Department Care Team (Late st Contact Info) Description 10/12/2025 9:30 AM NURSING INSTRUCTOR Office Visit [facility] Heart and Vascular - [facility] [address] [facility] [address] [place] [address] Valdez Frey MD [address] [facility] 2014 [place] [address] 10/24/2025 9:00 AM NURSING INSTRUCTOR Appointment [facility] Imaging Services [facility] 125 [place] [address] Anjana Rooj PA-C [address] [facility] 280 [place] [address] 02/28/2026 11:00 AM CDT Office Visit [facility] Primary Care [place] Ruffin N [facility] [address] [facility] [place] [address] [place] [address] Jamie [facility] [address] [place] [address] 09/01/2026 11:00 AM NURSING INSTRUCTOR Office [facility] Care Namrata Ruffin N [facility] [address] [place] [address] [place] [address] Gilber[address] Ayala [facility] [address] [place] [address] documented as of this encounter Visit Diagnoses Not on filedocumented in this encounter Care Teams Sink Cutter Relationship Specialty [place] [address] Gilber[address] Ayala [facility] [address] [place] [address] PCP - General Internal Medicine 08/25/24 documented as of this encounter
--- OUTSIDE RECORDS SUMMARY | 2025-09-13 12:04 | XMS_ITS | Encounter Summary ---
Author Organization [facility] Address [address] [place] [address] Care Team Providers Care Shingle Bolt Cutter Name Role Phone Mimi Fernandez MD Primary Care Provider [phone] Encounter Details Date Type Department Care Team [...] on file 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 CARRY OUT CLERK Gender Identity Not on file Sexual Orientation Not on file documented as of this encounter Plan of Treatment Upcoming Encounters Date Type Department Care Team (Late st Contact Info) Description 10/12/2025 9:30 AM CARRY OUT CLERK Office Visit [facility] Heart and Vascular - [facility] [address] [facility] 160 [place] [address] Valdez Frey MD [address] [facility] 2014 [place] [address] 10/24/2025 9:00 AM CARRY OUT CLERK Appointment [facility] Imaging Services Count Includes [facility] 125 [place] [address] Anjana Rojo PA-C [address] [facility] [address] [facility] 280 [place] [address] 02/28/2026 11:00 AM CDT Office Visit [facility] Primary Care Namrata Ruffin N [facility] [address] [facility] [place] [address] [place] [address] Ayala [facility] 280 [place] [address] 09/01/2026 11:00 AM CARRY OUT CLERK Office Visit [facility] Care Namrata Flores [facility] [address] [place] [address] [place] [address] Desouzaer [facility] [address] [place] [address] documented as of this encounter Visit Diagnoses Diagnosis Coronary atherosclerosis of unspecified type of vessel, [place] or graft documented in this encounter Care Teams Shingle Bolt Cutter Relationship Specialty [place] [address] Gilber[address] Ayala [facility] 280 [place] [address] PCP - General Internal Medicine 08/25/24 documented as of this encounter
--- OUTSIDE RECORDS SUMMARY | 2025-09-13 12:04 | XMS_ITS | Encounter Summary ---
Author Organization [facility] Address [address] [place] [address] Care Team Providers Care District Wildlife Manager Name Role Phone Mimi Fernandez MD Primary Care Provider [phone] Encounter Details Date Type Department Care Team (Latest Contact Info) Description 10/22/1999 Outpatient Historical [facility] Jaya Roper MD NO ADDRESS ON FILE Routine general medical examination at a health care facility (Primary Dx) Social History Tobacco Use Types Packs/Day Years Used Date Smoking Tobacco: Never Assessed Sex and Gender Information Value Date Recorded Sex Assigned at Not on file 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 BALL WARPER TENDER Gender Identity Not on file Sexual Orientation Not on file documented as of this encounter Plan of Treatment Upcoming Encounters Date Type Department Care Team (Late st Contact Info) Description 10/12/2025 9:30 AM BALL WARPER TENDER Office Visit [facility] Heart and Vascular - [facility] [address] [facility] 160 [place] [address] Valdez Frey MD [address] [facility] 2014 [place] [address] 10/24/2025 9:00 AM BALL WARPER TENDER Appointment [facility] Imaging Services [facility] 125 [place] [address] Anjana Rojo PA-C [address] [facility] 280 [place] [address] 02/28/2026 11:00 AM CDT Office Visit [facility] Primary Care [place] N [facility] [address] [place] [address] [place] [address] Ayala [facility] [address] [place] [address] 09/01/2026 11:00 AM BALL WARPER TENDER Office Visit [facility] Care Namrata Ruffin N [facility] [address] [facility] [place] [address] [place] [address] Gilberto Ayala [address] [address] documented as of this encounter Visit Diagnoses Diagnosis Routine general medical examination at a health care facility- Primary documented in this encounter Care Teams District Wildlife Manager Relationship Specialty [place] [address] Gilberto Ayala [facility] [address] [place] [address] PCP - General Internal Medicine 08/25/24 documented as of this encounter
--- OUTSIDE RECORDS SUMMARY | 2025-09-13 12:04 | XMS_ITS | Encounter Summary ---
Author Organization [facility] Address [address] [place] [address] Care Team Providers Care Inspector [employer]vas Products Name Role Phone Mimi Fernandez MD Primary Care Provider [phone] Encounter Details Date Type Department Care Team (Latest Contact Info) Description 09/26/2008 Outpatient Historical [facility], [address] Jaya Roper MD NO ADDRESS ON FILE Family History of Osteoporosis Social History Tobacco Use Types Packs/Day Years Used Date Smoking Tobacco: Never Alcohol Use Standard Drinks/Week Comments Yes 0 (1 standard drink = 0.6 oz pur e alcohol) Sex and Gender Information Value Date Recorded Sex Assigned at Not on file 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 REPORT WRITER Gender Identity Not on file Sexual Orientation Not on file documented as of this encounter Plan of Treatment Upcoming Encounters Date Type Department Care Team (Late st Contact Info) Description 10/12/2025 9:30 AM REPORT WRITER Office Visit [facility] Heart and Vascular - [facility] [address] [facility] 160 [place] [address] Valdez Frey MD [address] [facility] 2014 [place] [address] 10/24/2025 9:00 AM REPORT WRITER Appointment [facility] Imaging Services [facility] 125 [place] [address] Anjana Rojo PA-C [address] [facility] [place] [facility] 280 [place] [address] 02/28/2026 11:00 AM CDT Office Visit [facility] Primary Care Namrata Ruffin N [facility] [address] [facility] [place] [address] [place] [address] Gilber[address] Ayala [facility] 280 [place] [address] 09/01/2026 11:00 AM REPORT WRITER Office Visit [facility] Care Namrata Ruffin N [facility] [address] [place] [address] [place] [address] Gilberto Ayala [address] [address] documented as of this encounter Visit Diagnoses Diagnosis Family history of osteoporosis documented in this encounter Care Teams Inspector Canvas Products Relationship Specialty [place] [address] Gilberto Ayala [address] [address] PCP - General Internal Medicine 08/25/24 documented as of this encounter
--- OUTSIDE RECORDS SUMMARY | 2025-09-13 12:04 | XMS_ITS | Encounter Summary ---
Author Organization [facility] Address [address] [place] [address] Care Team Providers Care Patient Safety Manager Name Role Phone Mimi Fernandez MD Primary Care Provider [phone] Encounter Details Date Type Department Care Team (Late st Contact Info) Description 06/30/2007 Orders Only [facility] Primary Care - [address] [place] [address] Jaya Roper MD NO ADDRESS ON FILE Social History Tobacco Use Types Packs/Day Years Used Date Smoking Tobacco: Never Assessed Sex and Gender Information Value Date Recorded Sex Assigned at Not on file 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 BRAKE RIDER Gender Identity Not on file Sexual Orientation Not on file documented as of this encounter Progress Notes * Jaya Roper MD - 02/05/2008 10:45 AM CDT TEMPERATURE: 97.5??f Oral WEIGHT: [id number] BLOOD PRESSURE: 148/80 Right Arm Sitting NURSE [...] blood work today. LAB ORDERS: Order number: [id number] Test Ordered: LIPID PANEL 1078 Order number: [id number] Test Ordered: GLUCOSE LEVEL 1111 V70.0-ROUTINE GENERAL MEDICAL EXAMINATION Overall status is good. He has some minor maladies, none of which represent any significant issues. V76.44-SCREEN FOR CA OF PROSTATE LAB ORDERS: Order number: [id number] Test Ordered: PSA, TOTAL 1002 V17.81-FAMILY HISTORY OSTEOPOROSIS His father had osteoporosis, but he had been on steroids for some time. V17.2-FAMILY HISTORY NEUROLOGICAL DISEASES 705.9-DISORDERS OF SWEAT GLANDS He has some abnormal sweating, will check a thyroid function in light of his hyperlipidemia. LAB ORDERS: Order number: [id number] Test Ordered: TSH (REFLEX FREE T4/FREE T3) [...] st Contact Info) Description 10/12/2025 9:30 AM BRAKE RIDER Office Visit [facility] Heart and Vascular - [facility] [address] [facility] 160 [place] [address] Valdez Frey MD [address] [address] 10/24/2025 9:00 AM BRAKE RIDER Appointment [facility] Imaging Services [facility] 125 [place] [address] Anjana Rojo PA-C [address] [address] 02/28/2026 11:00 AM CDT Office Visit [facility] Primary Care [place] N [facility] [address] [facility] [address] [place] [address] [place] [address] [facility] [address] [address] 09/01/2026 11:00 AM BRAKE RIDER Office Visit [facility] Primary Care Namrata Flores [facility] [address] [facility] [place] [address] [place] [address] Gilberto Ayala [facility] 280 [place] [address] documented as of this encounter Visit Diagnoses Not on filedocumented in this encounter Care Teams Patient Safety Manager Relationship Specialty [place] [address] Gilberto Ayala [facility] 280 [place] [address] PCP - General Internal Medicine 08/25/24 documented as of this encounter
--- OUTSIDE RECORDS SUMMARY | 2025-09-13 12:04 | XMS_ITS | Clinical Summary ---
Author Organization [facility] Address [address] [place] [address] Phone Care Team Providers Care Inspector Chief Name Role Phone Mimi Fernandez MD Primary Care Provider [phone] Allergies Active Allergy Reactions Criticality Noted Date [...] mg) by mouth daily. 03/24/2023 Active omega 8-piq-ykv-fish oil 1,000 mg (250 mg-750 mg)/5 mL [...] migh t be different from the original. Mining Captain - Dr. Mckenna (Long office) Valdez Frey MD- [facility] Heart & Vascular ( [facility]) Problem Noted Date Diagnosed Date Family history [...] Department Care Team Description 08/30/2025 11:30 AM CHANNEL LAYER Office Visit [facility] Primary Care [place] [address] [place] [address] Mimi Fernandez MD Encounter for routine adult health examination without abnormal findings (Primary Dx); Benign hypertension; On longwall foreman drug therapy; Prediabetes; Mixed hypercholesterolemia and hypertriglyceridemia; [...] COVID-19 VACCINE - EMERGENCY USE AUTHORIZATION, MRNA, [id number](PF) 30 MCG/0.3 ML IM SUSP 01/07/2022,07/06/2021,12/10/2020,11/17 (PNEUMOVAX 23)(50 YRS UP) PN EUMOCOCCAL POLYSACCHARIDE (PPV23) 0.5 ML, IM 02/21/2012 (PREVNAR 20)(6 WKS UP) PNEUM OCOCCAL CONJUGATE VACCINE 20-VALENT (PCV20), POLYSACCHARIDE ADI491 CONJUGATE, ADJUVANT 0.5 ML (PF) IM 03/12/2022 [...] on file 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 CHANNEL LAYER Gender Identity Not on file Sexual Orientation Not on file Occupation Industry Job Start Date Job End Date Not on file Not on file Not on file Not on file Last Filed Vital Signs Vital Sign Reading Time Taken Comments Blood Pressure 134/78 08/30/2025 10:52 AM CHANNEL LAYER Pulse 57 08/30/2025 10:52 AM CHANNEL LAYER Temperature 36.7 C (98.1 F) 08/30/2025 10:52 AM CHANNEL LAYER Respiratory Rate 16 08/30/2025 10:52 AM CHANNEL LAYER Oxygen Saturation 98% 08/30/2025 10:52 AM CHANNEL LAYER Inhaled Oxygen Concentration - - Weight 73 kg (161 lb) 08/30/2025 10:52 AM CHANNEL LAYER Height 170.2 cm (5' 7) 08/30/2025 10:52 AM CHANNEL LAYER Body Mass Index 25.22 08/30/2025 10:52 AM CHANNEL LAYER Plan of Treatment Upcoming Encounters Date Type Department Care Team (Late st Contact Info) Description 10/12/2025 9:30 AM CHANNEL LAYER Office Visit [facility] Heart and Vascular - [facility] [address] [facility] 160 [place] [address] Valdez Frey MD [address] [address] 10/24/2025 9:00 AM CHANNEL LAYER Appointment [facility] Imaging Services [facility] [address] [place] [address] Anjana Rojo PA-C [address] [address] 02/28/2026 11:00 AM CDT Office Visit [facility] Primary Care [place] [address] [facility] [address] [place] [address] [place] [address] [place] [address] [address] 09/01/2026 11:00 AM CHANNEL LAYER Office Visit [facility] Primary Care [place] [facility] [address] [facility] [facility] [place] [address] [place] [address] [place] [address] [address] Health Maintenance Due Date Last Done Comments [...] years Discontinued Medical Devices Implanted Type Area [place] Pilot Device Identifier Shelf Expiration Date Model / Serial / Lot Marketing Analytics Analyst Clip Surgiclip Ii Adam 9.75in [id number] - [id number] Implanted:Qty : 1 on 11/04/2022 by Brooklynn Crenshaw MD at [facility] Clip Right: Leg MED[employer] - COVIDIEN [id number] 07/22/2027 [id number] / / [id number] Clip Ligating Horizon Med Ti [id number] - Csc - [id number] Implanted:Qty : 1 on 11/04/2022 by Brooklynn Crenshaw MD at [facility] Clip N/A: Chest TELEFLEX- WECK CLOSURE SYS [id number] 06/24/2027 / / [id number] Clip Ligating Horizon Sm Ti [id number] - Csc - [id number] Implanted:Qty : 8 on 11/04/2022 by Brooklynn Crenshaw MD at [facility] Clip N/A: Chest TELEFLEX INC 07/14/2027 / / [id number] Hemostat Surg Snow 2x4in 2081 [id number] Implanted:Qty : 1 on 11/04/2022 by Brooklynn Crenshaw MD at [facility] Hemostatic N/A: Chest J&J- [employer] [id number] 02/20/20242081 / / [id number] Marker Anastomark Cabg Slcn -Pm-1 - [id number] Implanted:Qty : 3 on 11/04/2022 by Brooklynn Crenshaw MD at [facility] Other N/A: Aorta Ocelus INC 01/19/2025 -PM-1 / / [id number] Cardiac Stent X1 Procedures Procedure Name Priority Date/Time Associated Diagnosis Comments PSA Routine 09/08/2025 9:20 AM CHANNEL LAYER Encounter for routine adult health examination without abnormal findings Family history of prostate cancer CBC WITH DIFFERENTIAL Routine 09/08/2025 9:19 AM CHANNEL LAYER Encounter for routine adult health examination without abnormal findings Benign hypertension 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 Paroxysmal atrial fibrillation (CMS/HCC) COMPREHENSIVE METABOLIC PANEL Routine 09/08/2025 9:19 AM CHANNEL LAYER Encounter for routine adult health examination without abnormal findings Benign hypertension 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 Paroxysmal atrial fibrillation (CMS/HCC) LIPID PANEL Routine 09/08/2025 9:19 AM CHANNEL LAYER Encounter for routine adult health examination without abnormal findings 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 FASTING:YES FASTING: YES Test Performed at: [facility] [address] Iftikhar Norman MD Blood 09/08/2025 9:20 AM CHANNEL LAYER 09/08/2025 9:21 AM CHANNEL LAYER us Mimi Fernandez MD CHEMISTRY ORDERABLES Final Resul t [facility] [phone] [address] * (ABNORMAL) CBC WITH DIFFERENTIAL (09/08/2025 9:19 AM CHANNEL LAYER) WBC 5.6 3.8 - 10.8 Thousand/ uL [...] Comment: FASTING:YES FASTING: YES Test Performed at: [place] [address] [address] [address] [facility] Blood 09/08/2025 9:19 AM CHANNEL LAYER 09/08/2025 9:21 AM CHANNEL LAYER Mimi Fernandez MD HEMATOLOGY ORDERABLES Final Resu lt [facility] [phone] [facility] [place] [address] [address] [place] [place] [phone] * (ABNORMAL) HEMOGLOBIN A1C (09/08/2025 9:19 AM CHANNEL LAYER) HEMOGLOBIN A1C 6.0(H) <5.7 % of total [...] Comment: FASTING:YES FASTING: YES Test Performed at: [place] [address] [address] [place] [address] [facility] Blood 09/08/2025 9:19 AM CHANNEL LAYER 09/08/2025 9:21 AM CHANNEL LAYER Mimi Fernandez MD CHEMISTRY ORDERABLES Final Resul t [facility] [phone] [place] [address] [address] [place] Shahid [phone] * LIPID PANEL (09/08/2025 9:19 AM CHANNEL LAYER) CHOLESTEROL 95 <200 mg/dL [facility] HDL 45 > OR = 40 mg/dL [facility] TRIGLYCERIDE 57 <150 mg/dL [facility] LDL CALCULATED 37 mg/dL (calc) [facility] Comment: Reference range: <100 Desirable range <100 mg/dL for primary prevention; <70 mg/dL for patients with CHD or diabetic patients with > or = 2 CHD risk factors. LDL-C is now calculated using the Yohana calculation, which is a validated novel method providing better accuracy than the Friedewald equation in the estimation of LDL-C. Timi SS et al. OPAL. 2013;310(19): 0806-8123 (http://education.Bangcle/faq/BKK431) CHOL/HDL RATIO 2.1 <5.0 (calc) [facility] NON-HDL CHOLESTEROL 50 <130 mg/dL (calc) [facility] Comment: For patients with diabetes plus 1 major ASCVD risk factor, treating to a non-HDL-C goal of <100 mg/dL (LDL-C of <70 mg/dL) is considered a therapeutic option. Test Performed at: [place] [address] [address] [place] [address] Iftikhar Norman Blood 09/08/2025 9:19 AM CHANNEL LAYER 09/08/2025 9:21 AM CHANNEL LAYER Mimi Fernandez MD CHEMISTRY ORDERABLES Final Resul t [facility] [phone] [place] [address] [address] [place] Shah[place] [address] * (ABNORMAL) COMPREHENSIVE METABOLIC PANEL (09/08/2025 9:19 AM CHANNEL LAYER) GLUCOSE 106(H) 65 - 99 mg/dL [facility] brayden Luis Comment: Fasting reference interval For someone without known diabetes, a glucose value between 100 and 125 mg/dL is consistent with prediabetes and should be confirmed with a follow-up test. BUN 14 7 - 25 mg/dL [facility] CREATININE 1.01 0.70 - 1.28 mg/dL [facility] GFR 76 > OR = 60 mL/min/1. 73m2 [facility] BUN/CREAT RATIO SEE NOTE: 6 - 22 (calc) [facility] Comment: Not Reported: BUN and Creatinine are within reference range. SODIUM 133(L) 135 - 146 mmol/L [facility] POTASSIUM 4.8 3.5 - 5.3 mmol/L [facility] CHLORIDE 99 98 - 110 mmol/L [facility] CO2 29 20 - 32 mmol/L [facility] CALCIUM 9.6 8.6 - 10.3 mg/dL [facility] TOTAL PROTEIN 6.9 6.1 - 8.1 g/dL [facility] ALBUMIN 4.6 3.6 - 5.1 g/dL [facility] GLOBULIN 2.3 1.9 - 3.7 g/dL (calc) [facility] ALBUMIN/GLOBULIN RATIO 2.0 1.0 - 2.5 (calc) [facility] BILIRUBIN TOTAL 0.5 0.2 - 1.2 mg/dL [facility] ALKALINE PHOSPHATASE 60 35 - 144 U/L [facility] AST 25 10 - 35 U/L [facility] ALT 25 9 - 46 U/L [facility] Comment: Test Performed at: [place] [address] [address] [place] [place] [address] Iftikhar Norman Blood 09/08/2025 9:19 AM CHANNEL LAYER 09/08/2025 9:21 AM CHANNEL LAYER us Mimi Fernandez MD CHEMISTRY ORDERABLES Final Resul t [facility] [phone] [facility] [place] [address] [address] [place] [place] [phone] * COLONOSCOPY REPORT (10/13/2024 11:37 AM CHANNEL LAYER) Narrative Procedure Note Álvaro Sharma DO - 10/13/2024 11:37 AM CST [facility] Endoscopy Patient Name: Cameron Liu Procedure Date: [...] of Addenda: [address]; [place] [address] us Álvaro Sharma DO GI PROCEDURE ORDERABLES Rissa l Result from Last 3 Months or Most Recently Relevant to Health Maintenance Insurance MEDICARE PART A HOSPITAL ONLY BCBS FEDERAL RX [facility] Advance Directives For more information, please contact: [phone] Documents on File Type Date Recorded 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
--- OUTSIDE RECORDS SUMMARY | 2025-09-13 12:04 | XMS_ITS | Encounter Summary ---
Author Organization [facility] Address [address] [place] [address] Care Team Providers Care On Air Talent Name Role Phone Mimi Fernandez MD Primary Care Provider Encounter Details Date Type Department Care Team (Late st Contact Info) Description 06/30/2007 Outpatient Historical [facility] Primary Care - [facility] [address] [facility] [address] [place] [address] Jaya Roper MD NO ADDRESS ON FILE Social History Tobacco Use Types Packs/Day Years Used Date Smoking Tobacco: Never Assessed Sex and Gender Information Value Date Recorded Sex Assigned at Not on file 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 BAIT MAN Gender Identity Not on file Sexual Orientation Not on file documented as of this encounter Plan of Treatment Upcoming Encounters Date Type Department Care Team (Late st Contact Info) Description 10/12/2025 9:30 AM BAIT MAN Office Visit [facility] Heart and Vascular - [facility] [address] [facility] [address] [place] [address] Valdez Frey MD [address] [facility] [address] [place] [address] 10/24/2025 9:00 AM BAIT MAN Appointment [facility] Imaging Services [facility] 125 [place] [address] Anjana Rojo PA-C [address] [facility] [address] [place] [address] 02/28/2026 11:00 AM CDT Office Visit [facility] Primary Care Namrata Ruffin N [facility] [address] [facility] [place] [address] [place] [address] Jamie [facility] [address] [place] [address] 09/01/2026 11:00 AM BAIT MAN Office Visit [facility] Care [place]rata Ruff[place] N [facility] [address] [place] [address] [place] [address] Gilberto Ayala [facility] [address] [place] [address] documented as of this encounter Visit Diagnoses Not on filedocumented in this encounter Care Teams On Air Talent Relationship Specialty [place] [address] Gilberto Ayala [facility] [address] [place] [address] PCP - General Internal Medicine 08/25/24 documented as of this encounter
--- OUTSIDE RECORDS SUMMARY | 2025-09-13 12:04 | XMS_ITS | Encounter Summary ---
Author Organization [facility] Address [address] [place] [address] Care Team Providers Care Ironer Hand Name Role Phone Mimi Fernandez MD Primary Care Provider [phone] Encounter Details Date Type Department Care Team (Late st Contact Info) Description 01/19/2007 Outpatient Historical [facility] Primary Care - [facility] [address] [facility] [address] [place] [address] Jaya Roper MD NO ADDRESS ON FILE Social History Tobacco Use Types Packs/Day Years Used Date Smoking Tobacco: Never Assessed Sex and Gender Information Value Date Recorded Sex Assigned at Not on file 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 VIDEO EFFECTS EDITOR Gender Identity Not on file Sexual Orientation Not on file documented as of this encounter Plan of Treatment Upcoming Encounters Date Type Department Care Team (Late st Contact Info) Description 10/12/2025 9:30 AM VIDEO EFFECTS EDITOR Office Visit [facility] Heart and Vascular - [facility] [address] [facility] 160 [place] [address] Valdez Frey MD [address] [facility] [address] [place] [address] 10/24/2025 9:00 AM VIDEO EFFECTS EDITOR Appointment [facility] Imaging Services [facility] 125 [place] [address] Anjana Rojo PA-C [address] [facility] [address] [place] [address] 02/28/2026 11:00 AM CDT Office Visit [facility] Primary Care Namrata Ruffin N [facility] [address] [facility] [place] [address] [place] [address] [facility] [address] [place] [address] 09/01/2026 11:00 AM VIDEO EFFECTS EDITOR Office Visit [facility] Care Namrata Ruff[place] N [facility] [address] [place] [address] [place] [address] Gilberto Ayala [facility] [address] [place] [address] documented as of this encounter Visit Diagnoses Not on filedocumented in this encounter Care Teams Ironer Hand Relationship Specialty [place] [address] [place] Ayala [facility] [address] [place] [address] PCP - General Internal Medicine 08/25/24 documented as of this encounter
--- OUTSIDE RECORDS SUMMARY | 2025-09-13 12:04 | XMS_ITS | Encounter Summary ---
Author Organization [facility] Address [address] [place] [address] Care Team Providers Care Parcel Post Clerk Name Role Phone Mimi Fernandez MD Primary Care Provider [phone] Encounter Details Date Type Department Care Team (Late st Contact Info) Description 06/30/2007 Outpatient Historical [facility] Primary Care - [facility] [address] [facility] [address] [place] [address] Jaya Roper MD NO ADDRESS ON FILE Social History Tobacco Use Types Packs/Day Years Used Date Smoking Tobacco: Never Assessed Sex and Gender Information Value Date Recorded Sex Assigned at Not on file 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 GATHERING MACHINE FEEDER Gender Identity Not on file Sexual Orientation Not on file documented as of this encounter Plan of Treatment Upcoming Encounters Date Type Department Care Team (Late st Contact Info) Description 10/12/2025 9:30 AM GATHERING MACHINE FEEDER Office Visit [facility] Heart and Vascular - [facility] [address] [facility] 160 [place] [address] Valdez Frey MD [address] [facility] [address] [place] [address] 10/24/2025 9:00 AM GATHERING MACHINE FEEDER Appointment [facility] Imaging Services [facility] [address] [place] [address] Anjana Rojo PA-C [address] [facility] [address] [place] [address] 02/28/2026 11:00 AM CDT Office Visit [facility] Primary Care Namrata Ruffin N [facility] [address] [facility] [place] [address] [place] [address] Jamie [facility] [address] [place] [address] 09/01/2026 11:00 AM GATHERING MACHINE FEEDER Office Visit [facility] Care Namrata Ruffin N [facility] [address] [place] [address] [place] [address] Gilberto Ayala [facility] [address] [place] [address] documented as of this encounter Visit Diagnoses Not on filedocumented in this encounter Care Teams Parcel Post Clerk Relationship Specialty [place] [address] Gilberto Ayala [facility] [address] [place] [address] PCP - General Internal Medicine 08/25/24 documented as of this encounter
--- OUTSIDE RECORDS SUMMARY | 2025-09-13 12:04 | XMS_ITS | Encounter Summary ---
Author Organization [facility] Address [address] [place] [address] Care Team Providers Care Sweetbread Trimmer Name Role Phone Mimi Fernandez MD Primary Care Provider [phone] Encounter Details Date Type Department Care Team (Late st Contact Info) Description 02/04/2008 Outpatient Historical [facility] Primary Care - [facility] [address] [facility] [address] [place] [address] Jaya Roper MD NO ADDRESS ON FILE Social History Tobacco Use Types Packs/Day Years Used Date Smoking Tobacco: Never Assessed Sex and Gender Information Value Date Recorded Sex Assigned at Not on file 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 CRIPPLE CHASER Gender Identity Not on file Sexual Orientation Not on file documented as of this encounter Plan of Treatment Upcoming Encounters Date Type Department Care Team (Late st Contact Info) Description 10/12/2025 9:30 AM CRIPPLE CHASER Office Visit [facility] Heart and Vascular - [facility] [address] [facility] 160 [place] [address] Valdez Frey MD [address] [facility] [address] [place] [address] 10/24/2025 9:00 AM CRIPPLE CHASER Appointment [facility] Imaging Services [facility] 125 [place] [address] Anjana Rojo PA-C [address] [facility] [address] [place] [address] 02/28/2026 11:00 AM CDT Office Visit [facility] Primary Care Namrata Ruffin N [facility] [address] [address] [email or web address] [place] [address] [place] [address] [facility] [address] [place] [address] 09/01/2026 11:00 AM CRIPPLE CHASER Office Visit [facility] Care Namrata Ruffin N [facility] [address] [place] [address] [place] [address] Gilber[address] Ayala [facility] [address] [place] [address] documented as of this encounter Visit Diagnoses Not on filedocumented in this encounter Care Teams Sweetbread Trimmer Relationship Specialty Start [place] [address] Gilberto Ayala [facility] [address] [place] [address] PCP - General Internal Medicine 08/25/24 documented as of this encounter
--- OUTSIDE RECORDS SUMMARY | 2025-09-13 12:04 | XMS_ITS | Encounter Summary ---
Author Organization [facility] Address [address] [place] [address] Care Team Providers Care Window Shade Installer Name Role Phone Mimi Fernandez MD Primary Care Provider [phone] Encounter Details Date Type Department Care Team (Late st Contact Info) Description 01/20/2008 Outpatient Historical [facility] Primary Care - [facility] [address] [place] [address] Jaya Roper MD NO ADDRESS ON FILE Social History Tobacco Use Types Packs/Day Years Used Date Smoking Tobacco: Never Assessed Sex and Gender Information Value Date Recorded Sex Assigned at Not on file 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 COLD PATCHER Gender Identity Not on file Sexual Orientation Not on file documented as of this encounter Plan of Treatment Upcoming Encounters Date Type Department Care Team (Late st Contact Info) Description 10/12/2025 9:30 AM COLD PATCHER Office Visit [facility] Heart and Vascular - [facility] [address] [facility] 160 [place] [address] Valdez Frey MD [address] [facility] 2014 [place] [address] 10/24/2025 9:00 AM COLD PATCHER Appointment [facility] Imaging Services [facility] [address] [place] [address] Anjana Rojo PA-C [address] [facility] 280 [place] [address] 02/28/2026 11:00 AM CDT Office Visit [facility] Primary Care [address] [facility] [place] [address] [place] [address] Jamie [facility] 280 [place] [address] 09/01/2026 11:00 AM COLD PATCHER Office Visit [facility] Care [place] Ruffin N [facility] [address] [place] [address] [place] [address] Gil[address] Ayala [facility] 280 [place] [address] documented as of this encounter Visit Diagnoses Not on filedocumented in this encounter Care Teams Window Shade Installer Relationship Specialty [place] [address] Gilber[address] Ayala [facility] 280 [place] [address] PCP - General Internal Medicine 08/25/24 documented as of this encounter
--- OUTSIDE RECORDS SUMMARY | 2025-09-13 12:04 | XMS_ITS | Encounter Summary ---
Author Organization [facility] Address [address] [place] [address] Care Team Providers Care Manager Neonatal Name Role Phone Mimi Fernandez MD Primary Care Provider Encounter Details Date Type Department Care Team (Latest Contact Info) Description 10/08/2007 Outpatient Historical [facility] Primary Care - [facility] [address] [facility] [address] [place] [address] Jaya Roper MD NO ADDRESS ON FILE Family History of Osteoporosis Social History Tobacco Use Types Packs/Day Years Used Date Smoking Tobacco: Never Assessed Sex and Gender Information Value Date Recorded Sex Assigned at Not on file 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 DATA PROCESSING SUPERVISOR Gender Identity Not on file Sexual Orientation Not on file documented as of this encounter Plan of Treatment Upcoming Encounters Date Type Department Care Team (Late st Contact Info) Description 10/12/2025 9:30 AM DATA PROCESSING SUPERVISOR Office Visit [facility] Heart and Vascular - [facility] [address] [facility] 160 [place] [address] Valdez Frey MD [address] [facility] 2014 [place] [address] 10/24/2025 9:00 AM DATA PROCESSING SUPERVISOR Appointment [facility] Imaging Services [facility] 125 [place] [address] Anjana Rojo PA-C [address] [facility] 280 [place] [address] 02/28/2026 11:00 AM CDT Office [facility] Care [place] R[address]in [address] [facility] [address] [place] [address] [place] [address] Ayala [address] [address] 09/01/2026 11:00 AM DATA PROCESSING SUPERVISOR Office [facility] Care [place] Ruffin N [facility] [address] [place] [address] [place] [address] [facility] 280 [place] [address] documented as of this encounter Procedures Procedure Name Priority Date/Time Associated Diagnosis Comments CBC WITH DIFFERENTIAL Routine 10/08/2007 8:44 AM DATA PROCESSING SUPERVISOR CBC WITH DIFFERENTIAL Routine 10/08/2007 8:44 AM DATA PROCESSING SUPERVISOR VITAMIN D 25 HYDROXY Routine 10/08/2007 8:44 AM DATA PROCESSING SUPERVISOR TSH Routine 10/08/2007 8:44 AM DATA PROCESSING SUPERVISOR CREATININE Routine 10/08/2007 8:44 AM DATA PROCESSING SUPERVISOR CALCIUM LEVEL Routine 10/08/2007 8:44 AM DATA PROCESSING SUPERVISOR LIPID PANEL Routine 10/08/2007 8:44 AM DATA PROCESSING SUPERVISOR documented in this encounter Results * CBC WITH DIFFERENTIAL (10/08/2007 8:44 AM DATA PROCESSING SUPERVISOR) NEUTROPHILS 63 45 - 70 % INTERFAC [...] 0.20 K/uL INTERFACE SYSTEM 10/08/2007 8:44 AM DATA PROCESSING SUPERVISOR us Jaya Roper MD HEMATOLOGY ORDERABLES Edited Performing Organization Address City/[facility] Co de Phone Number INTERFACE SYSTEM Refer to clinic/hospital department * CBC WITH DIFFERENTIAL (10/08/2007 8:44 AM DATA PROCESSING SUPERVISOR) WBC 4.8 4.0 - 9.8 K/uL INTERFACE [...] 12.4 fL INTERFACE SYSTEM 10/08/2007 8:44 AM DATA PROCESSING SUPERVISOR us Jaya Roper MD HEMATOLOGY ORDERABLES Edited Performing Organization Address City/[facility] de Phone Number INTERFACE SYSTEM Refer to clinic/hospital department * (ABNORMAL) LIPID PANEL (10/08/2007 8:44 AM DATA PROCESSING SUPERVISOR) CHOLESTEROL 222(H) 100 - 199 mg/dL INTERFACE SYSTEM TRIGLYCERIDE 225(H) 10 - 149 mg/dL INTERFACE SYSTEM HDL 44 40 - 59 mg/dL INTERFACE SYSTEM CHOL/HDL RATIO 5.0 2.0 - 5.0 INTER FACE SYSTEM LDL CALCULATED 133(H) <=99 mg/dL INTERFACE SYSTEM LIPID PANEL COMMENT See Below INTERFACE SYSTEM Comment: The adult ATP and pediatric NCEP classifications for lipids are available on the [facility] Intranet at: [email or web address] Select: Lab Policies and Procedures,Current Select: Lipid Panel Interpretation 10/08/2007 8:44 AM DATA PROCESSING SUPERVISOR Result Evonne Roper MD CHEMISTRY ORDERABLES Edited Performing Organization Address City/[facility] Co de Phone Number INTERFACE SYSTEM Refer to clinic/hospital department * CREATININE (10/08/2007 8:44 AM DATA PROCESSING SUPERVISOR) CREATININE 0.91 0.67 - 1.17 mg/dL INTERFACE SYSTEM GFR, >60 >=60 mL/min/1.7 sq meter INTERFACE SYSTEM GFR >60 >=60 mL/min/1.7 sq meter INTERFACE SYSTEM Comment: Estimated GFR rate interpretative information for both Americans and non- Americans is available on the [facility] Intranet at: [email or web address] Select: Lab Policies and Procedures Select: Reference Ranges - GFR 10/08/2007 8:44 AM DATA PROCESSING SUPERVISOR Result Evonne Roper MD CHEMISTRY ORDERABLES Edited Performing Organization Address [facility] de Phone Number INTERFACE SYSTEM Refer to clinic/hospital department * CALCIUM LEVEL (10/08/2007 8:44 AM DATA PROCESSING SUPERVISOR) CALCIUM 8.9 8.4 - 10.2 mg/dL INTERFACE SYSTEM 10/08/2007 8:44 AM DATA PROCESSING SUPERVISOR Result Evonne Roper MD CHEMISTRY ORDERABLES Edited Performing Organization Address City/State/[facility] Co de Phone Number INTERFACE SYSTEM Refer to clinic/hospital department * TSH (10/08/2007 8:44 AM DATA PROCESSING SUPERVISOR) TSH 3.01 0.27 - 4.20 uU/mL INTERFACE SYSTEM 10/08/2007 8:44 AM DATA PROCESSING SUPERVISOR Result Evonne Roper MD CHEMISTRY ORDERABLES Edited Performing Organization Address City/State/[facility] Co de Phone Number INTERFACE SYSTEM Refer to clinic/hospital department * VITAMIN D 25 HYDROXY (10/08/2007 8:44 AM DATA PROCESSING SUPERVISOR) VITAMIN D, 25 OH, TOTAL 22 20 [...] are >30 ng/mL. Lab test performed by: [facility] [address] MEI MARTINEZ MD 10/08/2007 8:44 AM DATA PROCESSING SUPERVISOR Jaya Roper MD CHEMISTRY ORDERABLES Edited Performing Organization Address [facility] Co de Phone Number INTERFACE SYSTEM Refer to clinic/hospital department documented in this encounter Visit Diagnoses Diagnosis Family history of osteoporosis documented in this encounter Care Teams Manager Neonatal Relationship Specialty [place] [address] [facility] [address] [place] [address] [address] PCP - General Internal Medicine 08/25/24 documented as of this encounter
--- OUTSIDE RECORDS SUMMARY | 2025-09-13 12:04 | XMS_ITS | Encounter Summary ---
Author Organization [facility] Address [address] [place] [address] Care Team Providers Care Music Professor Name Role Phone Mimi Fernandez MD Primary Care Provider [phone] Encounter Details Date Type Department Care Team (Latest Contact Info) Description 01/21/2008 Outpatient Historical [facility] Jaya Roper MD NO ADDRESS ON FILE Unspecified Chest Pain Social History Tobacco Use Types Packs/Day Years Used Date Smoking Tobacco: Never Assessed Sex and Gender Information Value Date Recorded Sex Assigned at Not on file 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 AUTOMATION CONSULTANT Gender Identity Not on file Sexual Orientation Not on file documented as of this encounter Plan of Treatment Upcoming Encounters Date Type Department Care Team (Late st Contact Info) Description 10/12/2025 9:30 AM AUTOMATION CONSULTANT Office Visit [facility] Heart and Vascular - [facility] [address] [facility] [address] [place] [phone] Valdez Frey MD [address] [facility] 2014 [place] [address] 10/24/2025 9:00 AM AUTOMATION CONSULTANT Appointment [facility] Imaging Services [facility] 125 [place] [address] Anjana Rojo PA-C [address] [facility] 280 [place] [address] 02/28/2026 11:00 AM CDT Office Visit [facility]3] Primary Care [place] N [facility] [address] [place] [address] [place] [address] Gilberto Ayala [address] [address] 09/01/2026 11:00 AM AUTOMATION CONSULTANT Office Visit [facility]3] Primary Care [place] [address] [place] [address] [place] [address] Gilberto Ayala [address] [address] documented as of this encounter Visit Diagnoses Diagnosis Chest pain, unspecified documented in this encounter Care Teams Music Professor Relationship Specialty [place] [address] Gilberto Ayala [address] [address] PCP - General Internal Medicine 08/25/24 documented as of this encounter
--- OUTSIDE RECORDS SUMMARY | 2025-09-13 12:04 | XMS_ITS | Encounter Summary ---
Author Organization [facility] Address [address] [place] [address] Care Team Providers Care Nurses Director Name Role Phone Mimi Fernandez MD Primary Care Provider [phone] Encounter Details Date Type Department Care Team (Late st Contact Info) Description 02/04/2008 Outpatient Historical [facility] Primary Care - [facility] [address] [facility] [address] [place] [address] Jaya Roper MD NO ADDRESS ON FILE Social History Tobacco Use Types Packs/Day Years Used Date Smoking Tobacco: Never Assessed Sex and Gender Information Value Date Recorded Sex Assigned at Not on file 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 COUNSELING DIRECTOR Gender Identity Not on file Sexual Orientation Not on file documented as of this encounter Plan of Treatment Upcoming Encounters Date Type Department Care Team (Late st Contact Info) Description 10/12/2025 9:30 AM COUNSELING DIRECTOR Office Visit [facility] Heart and Vascular - [facility] [address] [facility] 160 [place] [address] Valdez Frey MD [address] [facility] 2014 [place] [address] 10/24/2025 9:00 AM COUNSELING DIRECTOR Appointment [facility] Imaging Services [facility] 125 [place] [address] Anjana Rojo PA-C [address] [facility] 280 [place] [address] 02/28/2026 11:00 AM CDT Office Visit [facility] Primary Care [place] R[address] [facility] [address] [facility] [place] [address] [place] [address] Jamie [facility] 280 [place] [address] 09/01/2026 11:00 AM COUNSELING DIRECTOR Office Visit [facility] Care [place] N [facility] [address] [place] [address] [place] [address] Gilberto Ayala [facility] 280 [place] [address] documented as of this encounter Visit Diagnoses Not on filedocumented in this encounter Care Teams Nurses Director Relationship Specialty [place] [address] Gilberto Ayala [facility] 280 [place] [address] PCP - General Internal Medicine 08/25/24 documented as of this encounter
--- OUTSIDE RECORDS SUMMARY | 2025-09-13 12:04 | XMS_ITS | Encounter Summary ---
Author Organization [facility] Address [address] [place] [address] Care Team Providers Care Supervisor Gas Meter Repair Name Role Phone Mimi Fernandez MD Primary Care Provider [phone] Encounter Details Date Type Department Care Team (Late st Contact Info) Description 04/13/[address] [facility] Primary Care - [facility] [address] [facility] [address] [place] [address] Jaya Roper MD NO ADDRESS ON FILE Social History Tobacco Use Types Packs/Day Years Used Date Smoking Tobacco: Never Assessed Sex and Gender Information Value Date Recorded Sex Assigned at Not on file 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 SCIENTIFIC INFORMATICS ANALYST Gender Identity Not on file Sexual Orientation Not on file documented as of this encounter Plan of Treatment Upcoming Encounters Date Type Department Care Team (Late st Contact Info) Description 10/12/2025 9:30 AM SCIENTIFIC INFORMATICS ANALYST Office [facility] Heart and Vascular - [facility] [address] [facility] 160 [place] [address] Valdez Frey MD [address] [facility] 2014 [place] [address] 10/24/2025 9:00 AM SCIENTIFIC INFORMATICS ANALYST Appointment [facility] Imaging Services [facility] 125 [place] [address] Anjana Rojo PA-C [address] [facility] 280 [place] [address] 02/28/2026 11:00 AM CDT Office [facility] Primary Care [place] Ruffin N [facility] [address] [facility] [place] [address] [place] [address] Jamie [facility] 280 [place] [address] 09/01/2026 11:00 AM SCIENTIFIC INFORMATICS ANALYST Office Visit [facility] Care [place] Ruffin N [facility] [address] [place] [address] [place] [address] Gilber[address] Ayala [facility] 280 [place] [address] documented as of this encounter Visit Diagnoses Not on filedocumented in this encounter Care Teams Supervisor Gas Meter Repair Relationship Specialty [place] [address] Gilber[address] Ayala [facility] 280 [place] [address] PCP - General Internal Medicine 08/25/24 documented as of this encounter
--- OUTSIDE RECORDS SUMMARY | 2025-09-13 12:04 | XMS_ITS | Encounter Summary ---
Author Organization [facility] Address [address] [place] [address] Care Team Providers Care Electronics Inspector Name Role Phone Mimi Fernandez MD Primary Care Provider [phone] Encounter Details Date Type Department Care Team (Late Contact Info) Description 01/21/2008 Orders Only [facility] Primary Care - [facility] [address] [facility] [address] [place] [address] Jaya Roper MD NO ADDRESS ON FILE Social History Tobacco Use Types Packs/Day Years Used Date Smoking Tobacco: Never Assessed Sex and Gender Information Value Date Recorded Sex Assigned at Not on file 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 BRIM BLOCKER Gender Identity Not on file Sexual Orientation Not on file documented as of this encounter Plan of Treatment Upcoming Encounters Date Type Department Care Team (Late st Contact Info) Description 10/12/2025 9:30 AM BRIM BLOCKER Office Visit [facility] Heart and Vascular - [facility] [address] [facility] [address] [place] [address] Valdez Frey MD [address] [facility] 2014 [place] [address] 10/24/2025 9:00 AM BRIM BLOCKER Appointment [facility] 125 [place] [address] Anjana Rojo PA-C [address] [facility] 280 [place] [address] 02/28/2026 11:00 AM CDT Office Visit [facility] Primary Care [place] Ruffin N [facility] [address] [facility] [place] [address] [place] [address] Jamie [facility] [address] [place] [address] 09/01/2026 11:00 AM BRIM BLOCKER Office Visit [facility] Care [place] Ruffin N [facility] [address] [place] [address] [place] [address] Gilber[address] Ayala [facility] [address] [place] [address] documented as of this encounter Visit Diagnoses Not on filedocumented in this encounter Care Teams Electronics Inspector Relationship Specialty [place] [address] Gilberto Ayala [facility] 280 [place] [address] PCP - General Internal Medicine 08/25/24 documented as of this encounter
--- OUTSIDE RECORDS SUMMARY | 2025-09-13 12:04 | XMS_ITS | Encounter Summary ---
Author Organization [facility] Address [address] [place] [address] Care Team Providers Care Cable Mechanic Name Role Phone Mimi Fernandez MD Primary Care Provider [phone] Encounter Details Date Type Department Care Team (Late Contact Info) Description 01/21/2008 Outpatient Historical HIS CARD LINER REPLACER Conversion, History Tom Guerrero MD NO ADDRESS ON FILE Other Chest Pain Social History Tobacco Use Types Packs/Day Years Used Date Smoking Tobacco: Never Assessed Sex and Gender Information Value Date Recorded Sex Assigned at Not on file 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 PEER TUTOR Gender Identity Not on file Sexual Orientation Not on file documented as of this encounter Plan of Treatment Upcoming Encounters Date Type Department Care Team (Late st Contact Info) Description 10/12/2025 9:30 AM PEER TUTOR Office Visit [facility] Heart and Vascular - [facility] [address] [facility] [address] [place] [phone] Valdez Frey MD [address] [facility] [address] [place] [phone] 10/24/2025 9:00 AM PEER TUTOR Appointment [facility] Imaging Services [facility] [address] [place] [phone] Anjana Rojo PA-C [address] [facility] [place] [phone] 02/28/2026 11:00 AM CDT Office Visit [facility] Primary Care [place] [address] [place] [address] [place] [address] [place] [address] 09/01/2026 11:00 AM PEER TUTOR Office Visit [facility] Primary Care [address] [place] [address] [place] [address] Bernal [address] [place] [address] documented as of this encounter Procedures Procedure [...] PM CDT) TROPONIN T 0.01 <=0.03 ng/mL [facility] TROPONIN T INTERP Negative [facility] Blood specimen (specimen) 01/22/2008 11:05 PM CDT 01/22/2008 11:13 PM CDT Tom Guerrero MD CHEMISTRY ORDERABLES Edited Performing Organization Address [facility] Co de Phone Number [facility] [address] [facility] [place] [address] * CKMB W/REFLEX CK (01/22/2008 11:05 PM CDT) CKMB 2.9 <=6.7 ng/mL [facility] CKMB INTERP Negative [facility] Blood specimen (specimen) 01/22/2008 11:05 PM CDT 01/22/2008 11:13 PM CDT us Tom Guerrero MD CHEMISTRY ORDERABLES Edited Performing Organization Address [facility] de Phone Number [facility] [address] [facility] [place] [address] * CL CORONARY ANGIOGRAM (01/22/2008 7:01 PM CDT) Narrative INTERFACE SYSTEM - 01/22/2008 7:01 PM CDT [facility] [address] [place] [address] [email or web address] Cardiac Catheterization Comprehensive Report Patient: Cameron Liu Study ID: [id number] Gender: M : 1945 Age: 62 years Race: 1 Room: Bed: Height: 67 in ( 170.2 cm ) Study Date: January 22, 2008 Patient status: Outpatient Weight: 166.1 lb ( 75.5 kg ) Access. #: [id number] POC: Attending MD: Ebenezer Call MD: Ebenezer [...] was performed with a 2.5 x 15mm Hinds 2 RX balloon. 1 inflation(s) were performed, [...] 18:10:04 Procedure Note Provider, Historical - 01/22/[address] [address] [email or web address] Cardiac Catheterization Comprehensive Report Patient: Cameron Liu Study ID: [id number] Gender: Chelsy : 1945 Age: 62 years Race: 1 Room: Bed: Height: 67 in ( 170.2 cm ) Study Date: January 22, 2008 Patient status: Outpatient Weight: 166.1 lb ( 75.5 kg ) Access. #: [id number] POC: Attending MD: Ebenezer Call MD: Ebenezer [...] ORDERABLES Final Res ult Performing Organization Address [facility] de Phone Number INTERFACE SYSTEM Refer to clinic/hospital department * TROPONIN (01/22/2008 4:10 PM CDT) TROPONIN T <0.01 <=0.03 ng/mL [facility] TROPONIN T INTERP Negative [facility] Blood specimen (specimen) 01/22/2008 4:10 PM CDT 01/22/2008 4:16 PM CDT us Tom Guerrero MD CHEMISTRY ORDERABLES Edited Performing Organization Address [facility] Co de Phone Number [facility] [address] [place] [address] * CKMB W/REFLEX CK (01/22/2008 4:10 PM CDT) CKMB 2.2 <=6.7 ng/mL [facility] CKMB INTERP Negative [facility] Blood specimen (specimen) 01/22/2008 4:10 PM CDT 01/22/2008 4:16 PM CDT us Tom Guerrero MD CHEMISTRY ORDERABLES Edited Performing Organization Address [facility] Co de Phone Number [facility] [address] [place] [address] * POC ACTIVATED CLOTTING TIME (01/22/2008 2:25 PM CDT) ACT POC 307 Seconds [facility] Comment: Note sheath pull range change effective 03/14/2006. ACT value for sheath pull at [facility] has been established to be < or = to 140. (See also Nursing Procedures for sheath pull in related nursing areas) Blood specimen (specimen) 01/22/2008 2:25 PM CDT 01/22/2008 2:25 PM CDT Tom Guerrero MD POINT OF CARE TESTING Final Resu lt [facility] [address] [place] [address] * CBC WITH DIFFERENTIAL (01/22/2008 8:43 AM CDT) MCV 89.6 82.0 - 99.0 fL [facility] PLATELETS 229 140 - 350 K/uL [facility] HEMOGLOBIN 14.8 13.6 - 16.5 g/dL [facility] RDW 12.8 11.5 - 14.5 % [facility] WBC 5.1 4.0 - 9.8 K/uL [facility] MCH 30.1 27.2 - 32.6 pg [facility] MPV 10.1 9.3 - 12.4 fL [facility] HEMATOCRIT 44.0 40.0 - 48.0 % [facility] RDW-STDEV 41.3 37.1 - 48.7 fL [facility] RBC 4.91 4.50 - 5.40 M/uL [facility] MCHC 33.6 31.5 - 35.5 % [facility] EOSINOPHILS 2 0 - 7 % [facility] EOSINOPHIL ABSOLUTE 0.11 0.00 - 0.70 K/uL [facility] LYMPHOCYTES 27 16 - 45 % [facility] LYMPHOCYTE ABSOLUTE 1.40 0.70 - 4.50 K/uL [facility] BASOPHILS 1 0 - 2 % [facility] BASOPHILS ABSOLUTE 0.03 0.00 - 0.20 K/uL [facility] MONOCYTES 7 3 - 13 % [facility] MONOCYTE ABSOLUTE 0.35 0.10 - 1.30 K/uL [facility] NEUTROPHILS 63 45 - 70 % [facility] NEUTROPHIL ABSOLUTE 3.24 1.90 - 7.00 K/uL [facility] Blood specimen (specimen) 01/22/2008 8:43 AM CDT 01/22/2008 8:45 AM CDT Result [facility] Tom Guerrero MD HEMATOLOGY ORDERABLES Edited Performing Organization Address City/[facility]/ZIP Co de Phone Number INTERFACE SYSTEM Refer to clinic/hospital department [facility] [address] [place] [address] * (ABNORMAL) LIPID PANEL (01/22/2008 8:43 AM CDT) LDL CALCULATED 119(H) <=99 mg/dL [facility] TRIGLYCERIDE 231(H) 10 - 149 mg/dL [facility] CHOL/HDL RATIO 5.6(H) 2.0 - 5.0 [facility] HDL 36(L) 40 - 59 mg/dL [facility] CHOLESTEROL 201(H) 100 - 199 mg/dL [facility] LIPID PANEL COMMENT See Below [facility] Comment: The adult ATP and pediatric NCEP classifications for lipids are available on the [facility] Intranet at: [email or web address] Select: Lab Policies and Procedures,Current Select: Lipid Panel Interpretation Blood specimen (specimen) 01/22/2008 8:43 AM CDT 01/22/2008 8:45 AM CDT Narrative [facility] - 01/22/2008 9:37 AM CDT FASTING Tom Guerrero MD CHEMISTRY ORDERABLES Edited Performing Organization Address City/[facility]/ZIP Co de Phone Number [facility] [address] [place] [address] * (ABNORMAL) BASIC METABOLIC PANEL (01/22/2008 8:43 AM CDT) CHLORIDE 106 96 - 108 mmol/L [facility] GLUCOSE 102(H) 65 - 99 mg/dL [facility] SODIUM 140 135 - 145 mmol/L [facility] CALCIUM 8.9 8.4 - 10.2 mg/dL [facility] CO2 26 22 - 30 mmol/L [facility] CREATININE 0.90 0.67 - 1.17 mg/dL [facility] POTASSIUM 4.7 3.5 - 4.9 mmol/L [facility] Comment: Slight hemolysis present. Result may be falsely elevated. BUN 13 6 - 20 mg/dL [facility] GFR, >60 >=60 mL/min/1. 7 sq meter [facility] GFR >60 >=60 mL/min/1. 7 sq meter [facility] Comment: Estimated GFR rate interpretative information for both Americans and non- Americans is available on the [facility] Intranet at: [email or web address] Select: Lab Policies and Procedures Select: Reference Ranges - GFR Blood specimen (specimen) 01/22/2008 8:43 AM CDT 01/22/2008 8:45 AM CDT Tom Guerrero MD CHEMISTRY ORDERABLES Edited [facility] [address] [place] [address] * PT AND APTT (01/22/2008 8:43 AM CDT) PROTIME 13.1 12.7 - 15.1 Seconds [facility] INR 1.0 0.9 - 1.1 [facility] Comment: INR Therapeutic Range: Adult: 2.0 - 3.0 for pulmonary embolism or prophylaxis against venous thrombosis or systemic embolization. 2.0 - 3.0 for patients with tissue heart valves. 2.5 - 3.5 for patients with mechanical heart valves or post GA. Pediatric (12 years and under): 1.5 - 3.0 Although the target range in children is not well established, INR values of 1.5 - 3.0 are recommended for most patients. Higher values have been used in children with prosthetic cardiac valves and hereditary clotting disorders. (<3 days) therapeutic ranges have not been established. PTT 28.1 24.4 - 36.4 Seconds [facility] Comment: PTT Therapeutic Range: Heparin Level PTT (seconds) <0.10 units/mL <53 0.10 - 0.30 units/mL 53 - 67 0.30 - 0.70 units/mL* 67 - 95* 0.70 - 1.00 units/mL 95 - 116 *corresponds to therapeutic range for unfractionated heparin Blood specimen (specimen) 01/22/2008 8:43 AM CDT 01/22/2008 8:45 AM CDT Tom Guerrero MD HEMATOLOGY ORDERABLES Edited [facility] [address] [place] [address] documented in this encounter Visit Diagnoses Diagnosis Other chest pain documented in this encounter Care Teams Cable Mechanic Relationship Specialty [place] [address] [facility] [address] [place] [address] PCP - General Internal Medicine 08/25/24 documented as of this encounter
--- OUTSIDE RECORDS SUMMARY | 2025-09-13 12:04 | XMS_ITS | Encounter Summary ---
Author Organization [facility] Address [address] [place] [address] Care Team Providers Care Gps Navigation Installer Name Role Phone Mimi Fernandez MD Primary Care Provider [phone] Encounter Details Date Type Department Care Team (Latest Contact Info) Description 09/09/2007 [facility] NO ADDRESS ON FILE Family History of Osteoporosis Social History Tobacco Use Types Packs/Day Years Used Date Smoking Tobacco: Never Assessed Sex and Gender Information Value Date Recorded Sex Assigned at Not on file 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 GARBAGE COLLECTOR SUPERVISOR Gender Identity Not on file Sexual Orientation Not on file documented as of this encounter Plan of Treatment Upcoming Encounters Date Type Department Care Team (Late st Contact Info) Description 10/12/2025 9:30 AM GARBAGE COLLECTOR SUPERVISOR Office Visit [facility] Heart and Vascular - [facility] [address] [facility] [address] [place] [address] Valdez Frey MD [address] [facility] [address] [place] [address] 10/24/2025 9:00 AM GARBAGE COLLECTOR SUPERVISOR Appointment [facility] Imaging Services Counts Include [address] [facility] [address] [place] [address] Anjana Rojo PA-C [address] [facility] [address] [place] [address] 02/28/2026 11:00 AM CDT Office Visit [facility] Primary Care [place] [address] [place] [address] [place] [address] Ayala [facility] [address] [place] [address] 09/01/2026 11:00 AM GARBAGE COLLECTOR SUPERVISOR Office Visit [facility] Primary Care [place] [facility] [address] [place] [address] [place] [address] Ay[address] [address] documented as of this encounter Visit Diagnoses Diagnosis Family history of osteoporosis documented in this encounter Care Teams Gps Navigation Installer Relationship Specialty [place] [address] [address] PCP - General Internal Medicine 08/25/24 documented as of this encounter
--- OUTSIDE RECORDS SUMMARY | 2025-09-13 12:04 | XMS_ITS | Encounter Summary ---
Author Organization [facility] Address [address] [place] [address] Care Team Providers Care Manufacturing Supervisor Name Role Phone Mimi Fernandez MD Primary Care Provider [phone] Encounter Details Date Type Department Care Team (Latest Contact Info) Description 06/23/2006 Outpatient Historical [facility] Primary Care - [facility] [address] [facility] [address] [place] [address] Jaya Roper MD NO ADDRESS ON FILE Other and Unspecified Hyperlipidemia (Primary Dx) Social History Tobacco Use Types Packs/Day Years Used Date Smoking Tobacco: Never Assessed Sex and Gender Information Value Date Recorded Sex Assigned at Not on file 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 VETERINARY TECHNICIAN INSTRUCTOR Gender Identity Not on file Sexual Orientation Not on file documented as of this encounter Plan of Treatment Upcoming Encounters Date Type Department Care Team (Late st Contact Info) Description 10/12/2025 9:30 AM VETERINARY TECHNICIAN INSTRUCTOR Office Visit [facility] Heart and Vascular - [facility] [address] [facility] 160 [place] [address] Valdez Frey MD [address] [facility] [address] [place] [address] 10/24/2025 9:00 AM VETERINARY TECHNICIAN INSTRUCTOR Appointment [facility] Imaging Services [facility] [address] [place] [address] Anjana Rojo PA-C [address] [facility] [address] [facility] 280 [place] [address] 02/28/2026 11:00 AM CDT Office Visit [facility] [place] [address] [facility] [address] [place] [address] [place] [address] [facility] [address] [place] [address] 09/01/2026 11:00 AM VETERINARY TECHNICIAN INSTRUCTOR Office Visit [facility] [place] [address] N [facility] [address] [place] [address] [place] [address] [facility] [address] [place] [address] documented as of this encounter [...] ORDERABLES Final R esult Performing Organization Address [facility] Co ar Phone Number INTERFACE SYSTEM Refer to clinic/hospital [...] ORDERABLES Final R esult Performing Organization Address [facility] Phone Number INTERFACE SYSTEM Refer to clinic/hospital department * TSH REFLEXIVE (06/23/2006 3:26 PM CDT) TSH 3.50 0.27 - 4.20 uU/mL INTERFACE SYSTEM 06/23/2006 3:26 PM CDT us Jaya Roper MD CHEMISTRY ORDERABLES Final Re sult Performing Organization Address City/[facility] Co ar Phone Number INTERFACE SYSTEM Refer to clinic/hospital [...] classifications for lipids are available on the [facility] Intranet at: [email or web address] island [email or web address] Services (P)[email or web address] paulding hospitalet/[email or web address] Select: Lab Policies and Procedures Select: Reference Ranges - Lipids 06/23/2006 3:26 PM CDT Jaya Roper MD CHEMISTRY ORDERABLES Final Re sult Performing Organization Address City/[facility] Co de Phone Number INTERFACE SYSTEM Refer to clinic/hospital department * PSA (06/23/2006 3:26 PM CDT) PSA 1.1 0.0 - 4.0 ng/mL INTERFACE SYSTEM Comment:Performed on [employer] E170 System 06/23/2006 3:26 PM CDT us Jaya Roper MD CHEMISTRY ORDERABLES Final Re sult Performing Organization Address City/[facility]/ZIP Co de Phone Number INTERFACE SYSTEM Refer to clinic/hospital department documented in this encounter Visit Diagnoses Diagnosis Other and unspecified hyperlipidemia- Primary documented in this encounter Care Teams Manufacturing Supervisor Relationship Specialty [place] [address] [facility] [address] [place] [phone] PCP - General Internal Medicine 08/25/24 documented as of this encounter
--- OUTSIDE RECORDS SUMMARY | 2025-09-13 12:04 | XMS_ITS | Encounter Summary ---
Author Organization [facility] Address [address] [place] [address] Care Team Providers Care Dental Equipment Repairer Name Role Phone Mimi Fernandez MD Primary Care Provider [phone] Encounter Details Date Type Department Care Team (Late st Contact Info) Description 01/20/2008 Outpatient Historical [facility] Primary Care - [facility] [address] [facility] [address] [place] [address] Jaya Roper MD NO ADDRESS ON FILE Social History Tobacco Use Types Packs/Day Years Used Date Smoking Tobacco: Never Assessed Sex and Gender Information Value Date Recorded Sex Assigned at Not on file 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 CEMENT BASED MATERIALS PUMP TENDER Gender Identity Not on file Sexual Orientation Not on file documented as of this encounter Plan of Treatment Upcoming Encounters Date Type Department Care Team (Late st Contact Info) Description 10/12/2025 9:30 AM CEMENT BASED MATERIALS PUMP TENDER Office Visit [facility] Heart and Vascular - [facility] [address] [facility] 160 [place] [address] Valdez Frey MD [address] [facility] [address] [place] [address] 10/24/2025 9:00 AM CEMENT BASED MATERIALS PUMP TENDER Appointment [facility] Imaging Services [facility] [address] [place] [address] Anjana Rojo PA-C [address] [facility] 280 [place] [address] 02/28/2026 11:00 AM CDT Office Visit [facility] Primary Care [place] [address] [facility] [address] [facility] [place] [address] [place] [address] Jamie [facility] 280 [place] [address] 09/01/2026 11:00 AM CEMENT BASED MATERIALS PUMP TENDER Office Visit [facility] Namrata Ruffin N [facility] [address] [place] [address] [place] [address] Ayala [facility] [address] [place] [address] documented as of this encounter Visit Diagnoses Not on filedocumented in this encounter Care Teams Dental Equipment Repairer Relationship Specialty [place] [address] Ayala [facility] 280 [place] [address] PCP - General Internal Medicine 08/25/24 documented as of this encounter
--- OUTSIDE RECORDS SUMMARY | 2025-09-13 12:04 | XMS_ITS | Encounter Summary ---
Author Organization [facility] Address [address] [place] [address] Care Team Providers Care Coil Maker Name Role Phone Mimi Fernandez MD Primary Care Provider Encounter Details Date Type Department Care Team (Latest Contact Info) Description 04/20/2001 Outpatient Historical HIS IMG-LAB [facility] Jaya Roper MD NO ADDRESS ON FILE Cervicalgia (Primary Dx) Social History Tobacco Use Types Packs/Day Years Used Date Smoking Tobacco: Never Assessed Sex and Gender Information Value Date Recorded Sex Assigned at Not on file 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 GENERATOR TECHNICIAN Gender Identity Not on file Sexual Orientation Not on file documented as of this encounter Plan of Treatment Upcoming Encounters Date Type Department Care Team (Late st Contact Info) Description 10/12/2025 9:30 AM GENERATOR TECHNICIAN Office Visit [facility] Heart and Vascular - [facility] [address] [facility] [address] [place] [address] Valdez Fery MD [address] [facility] 2014 [place] [address] 10/24/2025 9:00 AM GENERATOR TECHNICIAN Appointment [facility] Imaging Services [facility] 125 [place] [address] Anjana Rojo PA-C [address] [facility] 280 [place] [address] 02/28/2026 11:00 AM CDT Office Visit [facility] Primary Care [place] [address] [place] [address] [place] [address] Gilberto Ayala [facility] 280 [place] [address] 09/01/2026 11:00 AM GENERATOR TECHNICIAN Office Visit [facility] Primary Care Namrata Ruffin N [facility] [address] [place] [address] [place] [address] Ayala [facility] [address] [place] [address] documented as of this encounter Visit Diagnoses Diagnosis Cervicalgia- Primary documented in this encounter Care Teams Coil Maker Relationship Specialty [place] [address] Ay[address] [address] PCP - General Internal Medicine 08/25/24 documented as of this encounter
--- OUTSIDE RECORDS SUMMARY | 2025-09-13 12:04 | XMS_ITS | Encounter Summary ---
Author Organization [facility] Address [address] [place] [address] Care Team Providers Care Platform Inspector Name Role Phone Mimi Fernandez MD Primary Care Provider [phone] Encounter Details Date Type Department Care Team (Late st Contact Info) Description 10/22/1999 Outpatient Historical [facility] Primary Care - [facility] [address] [facility] [address] [place] [address] Jaya Roper MD NO ADDRESS ON FILE Social History Tobacco Use Types Packs/Day Years Used Date Smoking Tobacco: Never Assessed Sex and Gender Information Value Date Recorded Sex Assigned at Not on file 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 MANAGER MATH Gender Identity Not on file Sexual Orientation Not on file documented as of this encounter Plan of Treatment Upcoming Encounters Date Type Department Care Team (Late st Contact Info) Description 10/12/2025 9:30 AM MANAGER MATH Office Visit [facility] Heart and Vascular - [facility] [address] [facility] 160 [place] [address] Valdez Frey MD [address] [facility] 2014 [place] [address] 10/24/2025 9:00 AM MANAGER MATH Appointment [facility] Imaging Services [facility] 125 [place] [address] Anjana Rojo PA-C [address] [facility] 280 [place] [address] 02/28/2026 11:00 AM CDT Office Visit [facility] Primary Care Namrata Ruffin N [facility] [address] [facility] [place] [address] [place] [address] Jamie [facility] 280 [place] [address] 09/01/2026 11:00 AM MANAGER MATH Office Visit [facility] Care Namrata Ruffin N [facility] [address] Juli [place] [address] [place] [address] Gilberto Ayala [facility] 280 [place] [address] documented as of this encounter Visit Diagnoses Not on filedocumented in this encounter Care Teams Platform Inspector Relationship Specialty [place] [address] Gilber[address] Ayala [facility] 280 [place] [address] PCP - General Internal Medicine 08/25/24 documented as of this encounter
--- OUTSIDE RECORDS SUMMARY | 2025-09-13 12:04 | XMS_ITS | Clinical Summary ---
Author Organization [facility] Address [address] [place] [address] Care Team Providers Care Hammer Shop Supervisor Name Role Phone Jaya Roper MD Primary Care Provider [phone] Source Comments [employer] [facility],non-owned Affiliates and Associated Physician Practices is amultiple site organization consisting of ambulatory clinics and hospital sitesin [place], [place], [place] and [place]. This disclosure is being madepursuant to the Care Everywhere program and may not contain all information available regarding this patient. Last updated 18.Libersy Allergies No known active allergies Medications * [...] on file Legal Sex Male 6:05 AM TUBE INSPECTOR Gender Identity Not on file Sexual [...] patient's age to complete this topic Insurance [facility] MEDICARE Care Teams Hammer Shop Supervisor Relationship Specialty Start Date End Date Jaya Roper MD [address] [place] [address] PCP - General Internal Medicine 03/18/14
--- OUTSIDE RECORDS SUMMARY | 2025-09-13 12:04 | XMS_ITS | Encounter Summary ---
Author Organization [facility] Address [address] [place] [address] Care Team Providers Care Metal Fabrication Supervisor Name Role Phone Mimi Fernandez MD Primary Care Provider [phone] Encounter Details Date Type Department Care Team (Latest Contact Info) Description 03/27/2009 Outpatient Historical [facility] [address] Jaya Roper MD NO ADDRESS ON FILE Other and Unspecified Hyperlipidemia Social History Tobacco Use Types Packs/Day Years Used Date Smoking Tobacco: Never Alcohol Use Standard Drinks/Week Comments Yes 0 (1 standard drink = 0.6 oz pur e alcohol) Sex and Gender Information Value Date Recorded Sex Assigned at Not on file 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 MACHINE JOINT CUTTER Gender Identity Not on file Sexual Orientation Not on file documented as of this encounter Plan of Treatment Upcoming Encounters Date Type Department Care Team (Late st Contact Info) Description 10/12/2025 9:30 AM MACHINE JOINT CUTTER Office Visit [facility] Heart and Vascular - [facility] [address] [facility] 160 [place] [address] Valdez Frey MD [address] [facility] 2014 [place] [address] 10/24/2025 9:00 AM MACHINE JOINT CUTTER Appointment [facility] Imaging Services [facility] 125 [place] [address] Anjana Rojo PA-C [address] [facility] 280 [place] [address] 02/28/2026 11:00 AM CDT Office Visit [facility] Primary Care Namrata Ruffin N [facility] [address] [place] [address] [place] [address] Jamie G[facility] 280 [place] [address] 09/01/2026 11:00 AM MACHINE JOINT CUTTER Office Visit [facility] Care Namrata [place] [facility] [address] [place] [address] [place] [address] Gilberto Ayala [address] [address] documented as of this encounter Visit Diagnoses Diagnosis Other and unspecified hyperlipidemia documented in this encounter Care Teams Metal Fabrication Supervisor Relationship Specialty [place] [address] Gilberto Ayala [address] [address] PCP - General Internal Medicine 08/25/24 documented as of this encounter
--- OUTSIDE RECORDS SUMMARY | 2025-09-13 12:04 | XMS_ITS | Encounter Summary ---
Author Organization [facility] Address [address] [place] [address] Care Team Providers Care Plumbing Service Technician Name Role Phone Mimi Fernandez MD Primary Care Provider [phone] Encounter Details Date Type Department Care Team (Late st Contact Info) Description 10/08/2007 Outpatient Historical [facility] Primary Care - [facility] [address] [facility] [address] [place] [address] Other, St[facility] NO ADDRESS ON FILE Social History Tobacco Use Types Packs/Day Years Used Date Smoking Tobacco: Never Assessed Sex and Gender Information Value Date Recorded Sex Assigned at Not on file 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 BOX BENDER Gender Identity Not on file Sexual Orientation Not on file documented as of this encounter Plan of Treatment Upcoming Encounters Date Type Department Care Team (Late st Contact Info) Description 10/12/2025 9:30 AM BOX BENDER Office Visit [facility] Heart and Vascular - [facility] [address] 755 [facility] 160 [place] [address] Valdez Frey MD [address] [facility] 2014 [place] [address] 10/24/2025 9:00 AM BOX BENDER Appointment [facility] Imaging Services [facility] 125 [place] [address] Anjana Rojo PA-C [address] [facility] 280 [place] [address] 02/28/2026 11:00 AM CDT Office Visit [facility] Primary Care Namrata Ruffin N [facility] [address] [place] [address] [place] [address] Gilberto Ayala [facility] 280 [place] [address] 09/01/2026 11:00 AM BOX BENDER Office Visit [facility] Care Namrata Ruffin N [facility] [address] [place] [address] [place] [address] Gilberto Ayala [address] [address] documented as of this encounter Visit Diagnoses Not on filedocumented in this encounter Care Teams Plumbing Service Technician Relationship Specialty [place] [address] Gilberto Ayala [address] [address] PCP - General Internal Medicine 08/25/24 documented as of this encounter
--- OUTSIDE RECORDS SUMMARY | 2025-09-13 12:04 | XMS_ITS | Encounter Summary ---
Author Organization [facility] Address [address] [place] [address] Care Team Providers Care Primer Inspector Name Role Phone Mimi Fernandez MD Primary Care Provider [phone] Encounter Details Date Type Department Care Team (Late st Contact Info) Description 06/23/2006 Outpatient Historical [facility] Primary [facility] - [facility] [address] [facility] [address] [place] [address] Jaya Roper MD NO ADDRESS ON FILE Social History Tobacco Use Types Packs/Day Years Used Date Smoking Tobacco: Never Assessed Sex and Gender Information Value Date Recorded Sex Assigned at Not on file 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 ELECTROMYOGRAPHIC TECHNICIAN Gender Identity Not on file Sexual Orientation Not on file documented as of this encounter Plan of Treatment Upcoming Encounters Date Type Department Care Team (Late st Contact Info) Description 10/12/2025 9:30 AM ELECTROMYOGRAPHIC TECHNICIAN Office Visit [facility] Heart and V[facility] - [facility] [address] [facility] 160 [place] [address] Valedz Frey MD [address] [facility] 2014 [place] [address] 10/24/2025 9:00 AM ELECTROMYOGRAPHIC TECHNICIAN Appointment [facility] Imaging Services [facility] 125 [place] [address] Anjana Rojo PA-C [address] [facility] 280 [place] [address] 02/28/2026 11:00 AM CDT Office Visit [facility] Primary Care Namrata Ruffin N [facility] [address] [facility] [place] [address] [place] [address] Jamie [facility] 280 [place] [address] 09/01/2026 11:00 AM ELECTROMYOGRAPHIC TECHNICIAN Office Visit [facility] Care Namrata Ruffin N [facility] [address] [place] [address] [place] [address] Gilberto Ayala [facility] 280 [place] [address] documented as of this encounter Visit Diagnoses Not on filedocumented in this encounter Care Teams Primer Inspector Relationship Specialty Start [place] [address] Gilberto Ayala [facility] 280 [place] [address] PCP - General Internal Medicine 08/25/24 documented as of this encounter
--- OUTSIDE RECORDS SUMMARY | 2025-09-13 12:04 | XMS_ITS | Encounter Summary ---
Author Organization [facility] Address [address] [place] [address] Care Team Providers Care Legal Operations Manager Name Role Phone Mimi Fernandez MD Primary Care Provider [phone] Encounter Details Date Type Department Care Team (Latest Contact Info) Description 06/08/2008 Outpatient Historical [facility] Igor Guerrero MD NO ADDRESS ON FILE Coronary Atherosclerosis of [place] Coronary Artery Social History Tobacco Use Types Packs/Day Years Used Date Smoking Tobacco: Never Assessed Sex and Gender Information Value Date Recorded Sex Assigned at Not on file 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 JACQUARD CARD LACER Gender Identity Not on file Sexual Orientation Not on file documented as of this encounter Plan of Treatment Upcoming Encounters Date Type Department Care Team (Late st Contact Info) Description 10/12/2025 9:30 AM JACQUARD CARD LACER Office Visit [facility] Heart and Vascular - [facility] [address] [facility] [address] [place] [address] Valdez Frey MD [address] [facility] 2014 [place] [address] 10/24/2025 9:00 AM JACQUARD CARD LACER Appointment [facility] Imaging Services [facility] 125 [place] [address] Anjana Rojo PA-C [address] [facility] 280 [place] [address] 02/28/2026 11:00 AM CDT Office Visit [facility] Primary Care [address] [address] [facility] 280 [place] [address] [place] [address] [address] 09/01/2026 11:00 AM JACQUARD CARD LACER Office Visit [facility] Primary Care [address] [facility] [place] [address] [place] [address] Bernal 280 [place] [address] documented as of this encounter Procedures Procedure Name Priority Date/Time Associated Diagnosis Comments NM MYOCARDIAL PERFUSION EF Routine 06/08/2008 10:55 AM CDT documented in this encounter Results * NM MYOCARDIAL PERFUSION EF (06/08/2008 10:55 AM CDT) 06/08/2008 10:5 5 AM CDT Narrative INTERFACE SYSTEM - 06/08/2008 1:46 PM CDT [address] [address] Admit Date: 06/08/2008 [place] YELENA L Sex: M Admit Prov: IGOR GUERRERO Date: 1945 Primary Care Prov: KATHY CHAN CMRN: [id number] Room: [facility] SSN: [id number] IMAGING SERVICES Ordering Prov: N/A Accession Number: [id number] Interpretation Date of Procedure: 06/08/2008 Procedure Type: [...] Procedure Note Igor Horvath MD - 06/08/2008 [facility] [address] [place], [place] [address] Admit Date: 06/08/2008 YELENA LIU Sex: M Admit Prov: IGOR GUERRERO Date: 1945 Primary Care Prov: KATHY CHAN CMRN: [id number] Room: [facility] SSN: [id number] IMAGING SERVICES Ordering Prov: N/A Interpretation Date [...] the patient was injected intravenously with 31.6 [id number] tetrofosmin and exercise was continued for 2 [...] encounter Visit Diagnoses Diagnosis Coronary atherosclerosis of [place] coronary artery documented in this encounter Care Teams Legal Operations Manager Relationship Specialty [place] [address] Gilberto Ayala [facility] 280 [place] [address] PCP - General Internal Medicine 08/25/24 documented as of this encounter
--- OUTSIDE RECORDS SUMMARY | 2025-09-13 12:04 | XMS_ITS | Encounter Summary ---
Author Organization [facility] Address [address] [place] [address] Care Team Providers Care Health Care Coach Name Role Phone Mimi Fernandez MD Primary Care Provider [phone] Encounter Details Date Type Department Care Team (Late st Contact Info) Description 06/23/2006 Outpatient Historical [facility] Primary Care - [facility] [address] [facility] [address] [place] [address] Jaya Roper MD NO ADDRESS ON FILE Social History Tobacco Use Types Packs/Day Years Used Date Smoking Tobacco: Never Assessed Sex and Gender Information Value Date Recorded Sex Assigned at Not on file 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 MANAGER ENERGY Gender Identity Not on file Sexual Orientation Not on file documented as of this encounter Plan of Treatment Upcoming Encounters Date Type Department Care Team (Late st Contact Info) Description 10/12/2025 9:30 AM MANAGER ENERGY Office Visit [facility] Heart and Vascular - [facility] [address] [facility] 160 [place] [address] Valdez Frey MD [address] [facility] 2014 [place] [address] 10/24/2025 9:00 AM MANAGER ENERGY Appointment [facility] Imaging Services [facility] 125 [place] [address] Anjana Rojo PA-C [address] [facility] 280 [place] [address] 02/28/2026 11:00 AM CDT Office Visit [facility] Primary Care Namrata Ruffin N [facility] [address] [facility] [place] [address] [place] [address] Jamie [facility] 280 [place] [address] 09/01/2026 11:00 AM MANAGER ENERGY Office Visit [facility] Care Namrata Ruffin N [facility] [address] [address] [place] [address] [place] [address] Gilberto Ayala [facility] 280 [place] [address] documented as of this encounter Visit Diagnoses Not on filedocumented in this encounter Care Teams Health Care Coach Relationship Specialty [place] [address] Gilberto Ayala [facility] 280 [place] [address] PCP - General Internal Medicine 08/25/24 documented as of this encounter
--- OUTSIDE RECORDS SUMMARY | 2025-09-13 12:05 | XMS_ITS | Encounter Summary ---
Author Organization [facility] Address [address] [place] [address] Care Team Providers Care Superintendent Production Name Role Phone Mimi Fernandez MD Primary Care Provider [phone] Encounter Details Date Type Department Care Team (Late st Contact Info) Description 11/18/2001 Outpatient Historical [facility] Primary Care - [facility] [address] [facility] [address] [place] [address] Jaya Roper MD NO ADDRESS ON FILE Social History Tobacco Use Types Packs/Day Years Used Date Smoking Tobacco: Never Assessed Sex and Gender Information Value Date Recorded Sex Assigned at Not on file 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 BRAKES INSPECTOR Gender Identity Not on file Sexual Orientation Not on file documented as of this encounter Plan of Treatment Upcoming Encounters Date Type Department Care Team (Late st Contact Info) Description 10/12/2025 9:30 AM BRAKES INSPECTOR Office Visit [facility] Heart and Vascular - [facility] [address] [facility] 160 [place] [address] Valdez Frey MD [address] [facility] 2014 [place] [address] 10/24/2025 9:00 AM BRAKES INSPECTOR Appointment [facility] Imaging Services [facility] 125 [place] [address] Anjana Rojo PA-C [address] [facility] 280 [place] [address] 02/28/2026 11:00 AM CDT Office Visit [facility] Primary Care Namrata Ruffin N [facility] [address] [address] [facility] [place] [address] [place] [address] Jamie [facility] 280 [place] [address] 09/01/2026 11:00 AM BRAKES INSPECTOR Office Visit [facility] Care Namrata Ruffin N [facility] [address] [address] [address] [place] [address] Gilberto Ayala [facility] 280 [place] [address] documented as of this encounter Visit Diagnoses Not on filedocumented in this encounter Care Teams Superintendent Production Relationship Specialty [place] [address] Gilberto Ayala [facility] 280 [place] [address] PCP - General Internal Medicine 08/25/24 documented as of this encounter
--- OUTSIDE RECORDS SUMMARY | 2025-09-13 12:05 | XMS_ITS | Encounter Summary ---
Author Organization [facility] Address [address] [place] [address] Care Team Providers Care Refrigeration Lead Name Role Phone Mimi Fernandez MD Primary Care Provider [phone] Encounter Details Date Type Department Care Team (Late st Contact Info) Description 06/05/2005 Outpatient Historical [facility] Support Serv. (Adt Cardiology-[facility]) [address] [place] [address] [place] [address] [facility] [address] [place] [address] Social History Tobacco Use Types Packs/Day Years Used Date Smoking Tobacco: Never Assessed Sex and Gender Information Value Date Recorded Sex Assigned at Not on file 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 TOOL HARDENER Gender Identity Not on file Sexual Orientation Not on file documented as of this encounter Plan of Treatment Upcoming Encounters Date Type Department Care Team (Late Contact Info) Description 10/12/2025 9:30 AM TOOL HARDENER Office Visit [facility] Heart and Vascular - [facility] [address] [facility] [address] [place] [address] Valdez Frey MD [address] [facility] 2015 [place] [address] 10/24/2025 9:00 AM TOOL HARDENER Appointment [facility] Imaging Services [facility] 125 [place] [address] Anjana Rojo PA-C [address] [address] 02/28/2026 11:00 AM CDT Office Visit [facility] Primary Care [place] N [facility] [address] [place] [address] [place] [address] [place] [address] [address] 09/01/2026 11:00 AM TOOL HARDENER Office Visit [facility] Primary Care Namrata Ruffin N [facility] [address] [address] [facility] [place] [address] [place] [address] Gilberto Ayala [address] [address] documented as of this encounter Visit Diagnoses Not on filedocumented in this encounter Care Teams Refrigeration Lead Relationship Specialty Start [place] [address] [place] [address] [address] PCP - General Internal Medicine 08/25/24 documented as of this encounter
--- OUTSIDE RECORDS SUMMARY | 2025-09-13 12:05 | XMS_ITS | Encounter Summary ---
Author Organization [facility] Address [address] [place] [address] Care Team Providers Care Patron Attendant Name Role Phone Mimi Fernandez MD Primary Care Provider [phone] Encounter Details Date Type Department Care Team (Late st Contact Info) Description 01/12/2004 Outpatient Historical [facility] Primary Care - [facility] [address] [facility] [address] [place] [address] Jaya Roper MD NO ADDRESS ON FILE Social History Tobacco Use Types Packs/Day Years Used Date Smoking Tobacco: Never Assessed Sex and Gender Information Value Date Recorded Sex Assigned at Not on file 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 ACCOUNT ADJUSTER Gender Identity Not on file Sexual Orientation Not on file documented as of this encounter Plan of Treatment Upcoming Encounters Date Type Department Care Team (Late st Contact Info) Description 10/12/2025 9:30 AM ACCOUNT ADJUSTER Office Visit [facility] Heart and Vascular - [facility] [address] [facility] [address] [place] [address] Valdez Frey MD [address] [facility] [address] [place] [address] 10/24/2025 9:00 AM ACCOUNT ADJUSTER Appointment [facility] Imaging Services [facility] [address] [place] [address] Anjana Rojo PA-C [address] [facility] [address] [place] [address] 02/28/2026 11:00 AM CDT Office Visit [facility] Primary Care Namrata Ruffin [address] [facility] [address] [facility] [place] [address] [place] [address] [facility] [address] [place] [address] 09/01/2026 11:00 AM ACCOUNT ADJUSTER Office Visit [facility] Care Namrata Ruffin N [facility] [address] [place] [address] [place] [address] Ayala [facility] [address] [place] [address] documented as of this encounter Visit Diagnoses Not on filedocumented in this encounter Care Teams Patron Attendant Relationship Specialty [place] [address] Gil[address] Ayala [facility] [address] [place] [address] PCP - General Internal Medicine 08/25/24 documented as of this encounter
--- OUTSIDE RECORDS SUMMARY | 2025-09-13 12:05 | XMS_ITS | Encounter Summary ---
Author Organization [facility] Address [address] [place] [address] Care Team Providers Care Crystal Grinder Name Role Phone Mimi Fernandez MD Primary Care Provider Encounter Details Date Type Department Care Team (Late st Contact Info) Description 07/30/2001 Outpatient Historical [facility] Primary Care - [facility] [address] [facility] [address] [place] [address] Jaya Roper MD NO ADDRESS ON FILE Social History Tobacco Use Types Packs/Day Years Used Date Smoking Tobacco: Never Assessed Sex and Gender Information Value Date Recorded Sex Assigned at Not on file 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 HEARING AID TECHNICIAN Gender Identity Not on file Sexual Orientation Not on file documented as of this encounter Plan of Treatment Upcoming Encounters Date Type Department Care Team (Late st Contact Info) Description 10/12/2025 9:30 AM HEARING AID TECHNICIAN Office Visit [facility] Heart and Vascular - [facility] [address] [facility] [address] [place] [address] Valdez Frey MD [address] [facility] [address] [place] [address] 10/24/2025 9:00 AM HEARING AID TECHNICIAN Appointment [facility] Imaging Services [facility] [address] [place] [address] Anjana Rojo PA-C [address] [facility] [address] [place] [address] 02/28/2026 11:00 AM CDT Office Visit [facility] Primary Care Namrata Ruffin N [facility] [address] [facility] [place] [address] [place] [address] [facility] [address] [place] [address] 09/01/2026 11:00 AM HEARING AID TECHNICIAN Office Visit [facility] Care Namrata Ruffin N [facility] [address] [place] [address] [place] [address] Gilber[address] Ayala [facility] [address] [place] [address] documented as of this encounter Visit Diagnoses Not on filedocumented in this encounter Care Teams Crystal Grinder Relationship Specialty [place] [address] Gilber[address] Ayala [facility] [address] [place] [address] PCP - General Internal Medicine 08/25/24 documented as of this encounter
--- OUTSIDE RECORDS SUMMARY | 2025-09-13 12:05 | XMS_ITS | Encounter Summary ---
Author Organization [facility] Address [address] [place] [address] Care Team Providers Care Electrical Appliance Repairer Name Role Phone Mimi Fernandez MD Primary Care Provider [phone] Encounter Details Date Type Department Care Team (Late st Contact Info) Description 05/06/2005 Outpatient Historical [facility] Primary Care - [facility] [address] [facility] [address] [place] [address] Jaya Roper MD NO ADDRESS ON FILE Social History Tobacco Use Types Packs/Day Years Used Date Smoking Tobacco: Never Assessed Sex and Gender Information Value Date Recorded Sex Assigned at Not on file 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 DIRECTOR INDEX Gender Identity Not on file Sexual Orientation Not on file documented as of this encounter Plan of Treatment Upcoming Encounters Date Type Department Care Team (Late st Contact Info) Description 10/12/2025 9:30 AM DIRECTOR INDEX Office Visit [facility] Heart and Vascular - [facility] [address] [facility] [address] [place] [address] Valdez Frey MD [address] [facility] 2014 [place] [address] 10/24/2025 9:00 AM DIRECTOR INDEX Appointment [facility] Imaging Services [facility] [address] [place] [address] Anjana Rojo PA-C [address] [facility] [address] [place] [address] 02/28/2026 11:00 AM CDT Office Visit [facility] Primary Care Namrata Ruffin N [facility] [address] [facility] [place] [address] [place] [address] Jamie [facility] [address] [place] [address] 09/01/2026 11:00 AM DIRECTOR INDEX Office Visit [facility] Care Namrata Ruffin N [facility] [address] [place] [address] [place] [address] Gilber[address] Ayala [facility] [address] [place] [address] documented as of this encounter Visit Diagnoses Not on filedocumented in this encounter Care Teams Electrical Appliance Repairer Relationship Specialty [place] [address] Gilber[address] Ayala [facility] [address] [place] [address] PCP - General Internal Medicine 08/25/24 documented as of this encounter
--- OUTSIDE RECORDS SUMMARY | 2025-09-13 12:05 | XMS_ITS | Encounter Summary ---
Author Organization [facility] Address [address] [place] [address] Care Team Providers Care Motors And Controls Tester Name Role Phone Mimi Fernandez MD Primary Care Provider [phone] Encounter Details Date Type Department Care Team (Late st Contact Info) Description 05/06/2005 Outpatient Historical [facility] Primary Care - [facility] [address] [facility] [address] [place] [address] Jaya Roper MD NO ADDRESS ON FILE Social History Tobacco Use Types Packs/Day Years Used Date Smoking Tobacco: Never Assessed Sex and Gender Information Value Date Recorded Sex Assigned at Not on file 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 SHINGLE CARRIER Gender Identity Not on file Sexual Orientation Not on file documented as of this encounter Plan of Treatment Upcoming Encounters Date Type Department Care Team (Late st Contact Info) Description 10/12/2025 9:30 AM SHINGLE CARRIER Office Visit [facility] Heart [facility] Vascular - [facility] [address] [facility] 160 [place] [address] Valdez Frey MD [address] [facility] [address] [place] [address] 10/24/2025 9:00 AM SHINGLE CARRIER Appointment [facility] Imaging Services [facility] [address] [place] [address] Anjana Rojo PA-C [address] [facility] [address] [place] [address] 02/28/2026 11:00 AM CDT Office Visit [facility] Primary Care Namrata Ruffin N [facility] [address] [facility] [place] [address] [place] [address] Jamie [facility] [address] [place] [address] 09/01/2026 11:00 AM SHINGLE CARRIER Office Visit [facility] Care Namrata Ruffin N [facility] [address] [place] [address] [place] [address] Gilber[address] Ayala [facility] [address] [place] [address] documented as of this encounter Visit Diagnoses Not on filedocumented in this encounter Care Teams Motors And Controls Tester Relationship Specialty [place] [address] Gilber[address] Ayala [facility] [address] [place] [address] PCP - General Internal Medicine 08/25/24 documented as of this encounter
[2025-09-13 12:08] LABS: Alanine Aminotransferase 31 U/L (6-50); Albumin Level 4.8 g/dL (3.5-5.1); Alkaline Phosphatase 67 U/L (38-126); Anion Gap 8 mmol/L (4-12); Aspartate Amino Transferase 40 U/L (17-59); Bilirubin,Total 0.6 mg/dL (0.2-1.3); Blood Urea Nitrogen 17 mg/dL (9-20); Calcium 9.8 mg/dL (8.4-10.2); Carbon Dioxide 27 mmol/L (22-30); Chloride 99 mmol/L (98-107); Estimated CRCL calculation 51 ml/min; Estimated Glomerular Filt Rate > 60; Glucose 113 mg/dL (65-110); Lipase 219 U/L (23-300); Potassium 4.5 mmol/L (3.4-5.0); Sodium 134 mmol/L (137-145); Total Protein 8.1 g/dL (6.3-8.2)
--- NOTE | 2025-09-13 13:21 | ED.ABDPAIN ---
HPI - Abdominal Pain General Chief Complaint: Abdominal Pain Stated Complaint: RLQ/R flank pain x6wks Time Seen by Provider: 09/13/25 11:39 Source: patient Mode of arrival: ambulatory Limitations: no limitations History of Present Illness HPI narrative: This is a 80-year-old male that presents to the emergency department for right flank pain. Ongoing intermittently over the last couple of weeks. Reports worsening pain today that radiated into the right side of his abdomen which prompted him to be seen. Reports nausea. Denies vomiting, dysuria, hematuria. Related Data Home Medications ?Medication ?Instructions ?Recorded ?Confirmed ?Last Taken ?Type amlodipine 5 mg tablet mg 05/22/22 Unknown History aspirin 81 mg 05/22/22 Unknown History clopidogrel 75 mg tablet mg 05/22/22 Unknown History simvastatin 40 mg tablet mg 05/22/22 Unknown History valsartan 160 mg tablet mg 05/22/22 Unknown History Allergies Allergy/AdvReac Type Severity Reaction Status Date / Time No Known Allergies Allergy Mild Verified 09/13/25 08:24 Review of Systems Review of Systems: All systems reviewed & are unremarkable except as noted in HPI and below PMFSH Past Medical History Medical History (Updated 09/13/25 @ 14:53 by Pippa Isaac PA-C) Hypertension Coronary artery disease Surgical History Surgical History (Updated 01/17/25 @ 08:15 by Kasi Cramer MD) Hx of CABG Family History Family History (Updated 01/03/23 @ 08:48 by Yoly Cardenas RN) Mother Hypertension Dementia Alzheimer disease Sibling CAD (coronary artery disease) Prostate carcinoma Social History Social History Smoking status: Never smoker Exam Narrative: GENERAL: Well-appearing, well-nourished, and in no acute distress. HEAD: Normocephalic, atraumatic. EYES: EOMI. ENT: Nares clear, no rhinorrhea or epistaxis. Mucous membranes moist. Oropharynx without tonsillar hypertrophy exudate or other lesions. CHEST: Clear to auscultation. No respiratory distress. No wheezes rales or rhonchi HEART: Regular rate and rhythm. No murmur heard. Normal peripheral pulses. ABDOMEN: Soft, nontender, nondistended, normal active bowel sounds. EXTREMITIES: Normal range of motion. No edema. SKIN: Warm, dry, no rash. NEURO: No focal deficits. Alert and oriented x3. PSYCH: Normal mood and affect Course Vital Signs Vital signs: Vital Signs Temperature 97.6 F 09/13/25 08:35 Pulse Rate 65 09/13/25 08:35 Respiratory Rate 16 09/13/25 08:35 Blood Pressure 163/72 H 09/13/25 08:35 Pulse Oximetry 99 09/13/25 08:35 Oxygen Delivery Room Air 09/13/25 08:35 Temperature 97.6 F 09/13/25 14:04 Pulse Rate 80 09/13/25 14:04 Respiratory Rate 16 09/13/25 14:04 Blood Pressure 152/64 H 09/13/25 14:04 Pulse Oximetry 98 09/13/25 14:04 Oxygen Delivery Room Air 09/13/25 08:35 MDM MDM Narrative Medical decision making narrative: Patient presents to the ER for right flank pain, abdominal pain. Patient is afebrile and nontoxic appearing. His vitals are stable. Cbc without leukocytosis. Metabolic panel without concerning findings. Urine without evidence of infection. CT abdomen and pelvis without acute findings. Lung nodule noted. Patient updated on workup and agrees with plan of care. Follow-up with PCP Differential Diagnosis Differential Diagnosis: biliary colic, appendicitis, muscle strain, UTI, kidney stone, radiculopathy Lab Data [facility] Lab Attestation statement: I personally reviewed the patient's lab results. 09/13/25 11:41 09/13/25 11:41 Labs: Lab Results 09/13/25 Range/Units 11:41 WBC 5.9 (4.5-10.0) K/mm3 RBC 4.52 L (4.6-6.20) M/mm3 Hgb 11.7 L (14.0-18.0) g/dL Hct 37.7 L (42.0-52.0) % MCV 83.4 (80-100) fl MCH 25.9 L (26-34) pg MCHC 31.0 L (32-36) g/dl RDW 15.8 H (11.5-14.5) % Plt Count 216 (150-375) k/mm3 MPV 8.6 (7.4-10.4) fl Immature Gran % (Auto) Not Reportable Neut % (Auto) Not Reportable Lymph % (Auto) Not Reportable [place] % (Auto) Not Reportable Eos % (Auto) Not Reportable Baso % (Auto) Not Reportable Lymph # (Auto) Not Reportable [place] # (Auto) Not Reportable Eos # (Auto) Not Reportable Baso # (Auto) Not Reportable Abs Immat Gran (auto) Not Reportable Absolute Neuts (auto) Not Reportable Absolute Nucleated RBC Not Reportable Nucleated RBC % Not Reportable Sodium 134 L (137-145) mmol/L Potassium 4.5 (3.4-5.0) mmol/L Chloride 99 (98-107) mmol/L Carbon Dioxide 27 (22-30) mmol/L Anion Gap 8 (4-12) mmol/L BUN 17 (9-20) mg/dL Creatinine 0.97 (0.7-1.3) mg/dL Estim Creat Clear Calc 51 ml/min Estimated GFR > 60 (59 - ) Glucose 113 H (65-110) mg/dL Calcium 9.8 (8.4-10.2) mg/dL Total Bilirubin 0.6 (0.2-1.3) mg/dL AST 40 (17-59) U/L ALT 31 (6-50) U/L Alkaline Phosphatase 67 (38-126) U/L Total Protein 8.1 (6.3-8.2) g/dL Albumin 4.8 (3.5-5.1) g/dL Lipase 219 (23-300) U/L Urine Color Yellow (Yellow) Urine Appearance Clear (Clear) Urine pH 6.0 (5.0-9.0) Ur Specific [place] 1.014 (1.001-1.035) Urine Protein Negative (Negative) mg/dL Urine Glucose (UA) Negative (Negative) mg/dL Urine Ketones Negative (Negative) mg/dL Ur Blood (Man) Negative (Negative) Urine Nitrate Negative (Negative) Urine Bilirubin Negative (Negative) Urine Urobilinogen 0.2 (<2.0) mg/dL Leukocyte Esterase Rfl Negative (Negative) JOAQUIN/UL Imaging Data Radiologist's impression: ITS Impressions Abdomen/Pelvis CT 09/13/25 13:21 IMPRESSION: 1. No acute intra-abdominal/pelvic process. 2. Prostatomegaly. 3. Unchanged 7 mm pleural-based left lower lobe nodule. Consider additional 12 month follow-up low-dose noncontrast chest CT. Critical Care Time Critical Care Time Critical Care Time: No Discharge Plan Discharge Clinical Impression: Acute right flank pain, Lung nodule Patient Disposition: Home Condition: Stable Instructions: Flank Pain (ED), Pulmonary Nodules (ED) Additional Instructions: Return to the ER if you experience fever, abdominal pain with nausea and vomiting, you are unable to keep down liquids or solids, blood in the stool, pain or burning with urination, blood in the urine or any other symptoms that are concerning to you Tylenol or Ibuprofen as needed for pain Follow up with your primary care doctor Patient Language: Bulgarian Prescriptions: No Action clopidogrel 75 mg tablet amlodipine 5 mg tablet simvastatin 40 mg tablet valsartan 160 mg tablet aspirin 81 mg cyclobenzaprine 10 mg tablet 10 mg PO TID Qty: 14 0RF prednisone 10 mg tablets,dose pack See Taper PO DAILY 12 Days Qty: 42 0RF Taper: Prednisone Taper from 60 mg;12 days 60 mg DAILY for 2 Days and 0 Hour 50 mg DAILY for 2 Days and 0 Hour 40 mg DAILY for 2 Days and 0 Hour 30 mg DAILY for 2 Days and 0 Hour 20 mg DAILY for 2 Days and 0 Hour 10 mg DAILY for 2 Days and 0 Hour hydrocodone-acetaminophen 5-325 mg tablet 1 tablet PO Q6H PRN (Reason: pain) Qty: 14 0RF amoxicillin-pot clavulanate 875-125 mg tablet 1 tablet PO Q12H Qty: 20 0RF Follow-up/Referrals: Mimi Fernandez [Other]
[2025-09-13 14:04] VITALS: BP 152/64; PULSE 80; RESP 16; TEMP 36.4; O2SAT 98
[2025-09-13 15:26] VITALS: BP 154/75; PULSE 54; RESP 20; TEMP 36.2; O2SAT 99
== END 2025-09-13 15:27 | disposition home or self-care (01) ==
PROVIDERS: Emergency Medicine; Emergency Provider Physician Assistant
DX: R10.A1 Flank pain, right side (principal); R91.1 Solitary pulmonary nodule; I10 Essential (primary) hypertension; I25.10 Atherosclerotic heart disease of native coronary artery without angina pectoris; Z95.1 Presence of aortocoronary bypass graft; N40.0 Benign prostatic hyperplasia without lower urinary tract symptoms
CPT/HCPCS: 36415; 74177; 80053; 81003; 83690; 85025; 99284; Q9967